=== PATIENT | male | born 1950 | race Two or more races ===

== ENCOUNTER → 2017-07-02 | Outpatient (CLI) | payer BC | END | disposition home or self-care (01) | LOC: US 07:06 | DX: K80.20 Calculus of gallbladder without cholecystitis without obstruction (principal); N28.1 Cyst of kidney, acquired; R16.1 Splenomegaly, not elsewhere classified | CPT/HCPCS: 76700 ==

== ENCOUNTER → 2017-07-25 | Day surgery (SDC) | payer BC ==
[~2017-07-25] MED LIST: LIDOCAINE 1% PF 2 ML VIAL. ID; LIDOCAINE 2% 100 MG/5 ML SYRINGE.; MORPHINE SULFATE 4 MG/ML DISP.SYRIN. IV; ONDANSETRON PF 4 MG/2 ML VIAL. IV; PROCHLORPERAZINE 10 MG/2 ML VIAL. IV; PROPOFOL 20 ML IV; fentaNYL PF VIAL 100 MCG/2 ML VIAL IV
[2017-07-25] MEDS: IV RINGERS,LACTATED 1000ML 1,000 ML IV (11:47)
[2017-07-25 11:58] LABS: POC GLUCOSE 160 mg/dL (70-99)
== END ==
LOC: ENDOS 11:19
DX: K29.00 Acute gastritis without bleeding (principal); K31.89 Other diseases of stomach and duodenum; E11.9 Type 2 diabetes mellitus without complications; I10 Essential (primary) hypertension; E78.5 Hyperlipidemia, unspecified; Z87.39 Personal history of other diseases of the musculoskeletal system and connective tissue; Z98.890 Other specified postprocedural states; Z87.891 Personal history of nicotine dependence; Z72.89 Other problems related to lifestyle
CPT/HCPCS: 43239; 82962; 88305; 88342; J2704

== ENCOUNTER → 2020-02-22 | Outpatient (CLI) | payer BC ==
[2017-07-25 12:32] VITALS: BP 158/83
[~2020-02-22] MED LIST changes: +AMLO2.5T5 PO; +ASPI-886 PO; +CLOP75TA PO; +FURO80TA3 PO; +GLIM4TAB8 PO; -LIDOCAINE 1% PF 2 ML VIAL. ID; -LIDOCAINE 2% 100 MG/5 ML SYRINGE.; +LISI-334 PO; +METF10007 PO; +METF500T16 PO; +METO50TA6 PO; -MORPHINE SULFATE 4 MG/ML DISP.SYRIN. IV; +OMEP20TA8 PO; -ONDANSETRON PF 4 MG/2 ML VIAL. IV; +POTASSIUM CHLO10 ME1 PO; -PROCHLORPERAZINE 10 MG/2 ML VIAL. IV; -PROPOFOL 20 ML IV; +SIMV40TA18 PO; +WARF-31 PO; -fentaNYL PF VIAL 100 MCG/2 ML VIAL IV
--- NOTE | 2020-02-22 15:49 | KCIC ---
EXAM: Renal sonogram. HISTORY: Microscopic hematuria. TECHNIQUE: Sonographic imaging the kidneys and bladder was performed. COMPARISON: None. FINDINGS: The kidneys are normal in size. No solid renal lesion is seen. There is a simple cyst within the left kidney measuring 4.4 cm. There is masslike deformation of the bladder base due to an enlarged prostate. This limits evaluation for a bladder neoplasm. The prevoid bladder volume is 719 cc. Postvoid imaging was not obtained. IMPRESSION: 1. Masslike deformation of the bladder base due to an enlarged prostate. This limits evaluation for a bladder mass. Given reported microcephaly hematuria, a CT urogram or cystoscopy may be indicated. The bladder is distended. 2. 4.4 cm simple left renal cyst. Electronically signed by: Tari Naranjo MD (02/22/2020 3:46 PM) [id number]
== END ==
LOC: KCIC US 15:17
PROVIDERS: ATTEND Family Medicine
DX: N28.1 Cyst of kidney, acquired (principal); N40.0 Benign prostatic hyperplasia without lower urinary tract symptoms; R31.21 Asymptomatic microscopic hematuria
CPT/HCPCS: 76770

== ENCOUNTER 2020-10-02 23:42 | Inpatient (IN) | payer BC ==
[~2020-10-02] VITALS: Ht 177.8 cm; Wt 106.8 kg
[~2020-10-02 23:42] MED LIST changes: -LISI-334 PO; +LISI20TA18 PO
[2020-10-02] MEDS ORDERED: LABETALOL 20 MG/4 ML DISP.SYRIN. IVP ONE (23:59)
[2020-10-03] VITALS (26 sets, daily range): BP systolic 122–178; BP diastolic 62–91
--- NOTE | 2020-10-03 00:03 | RAD ---
CT STROKE HEAD W/O History: Reason: stroke symptoms;RIGHT SIDED WEAKNESS / Spl. Instructions: / History: Comparison: None. Technique: Noncontrast CT imaging was performed of the head. Exposure: One or more of the following individualized dose reduction techniques were utilized for thi s examination: 1. Automated exposure control 2. Adjustment of the mA and/or kV according to patient size 3. Use of iterative reconstruction technique. Findings: Acute left thalamic hemorrhage measures 1.4 x 1.0 cm. Mild adjacent edema. No significant adjacent ma ss effect. No hydrocephalus. Mild brain parenchymal volume loss. Moderate foci of decreased attenuation within the hemispheric whi te matter, most often due to chronic microvascular ischemia. Intracranial atheromatous calcifications . Imaged orbits are unremarkable. Imaged paranasal sinuses and mastoid air cells are clear. No acute ca lvarial fracture. Impression: 1. Acute left thalamic hemorrhage with mild adjacent edema. FOR INTERNAL CODING PURPOSES Critical result: Findings discussed with ER physician taking care of the patient. at 10/02/2020 11:57 PM. RESULT CODE: (C) Electronically signed by: Anders Banks DO (10/03/2020 12:01 AM) [facility]
[2020-10-03] MEDS ORDERED: LABETALOL 20 MG/4 ML DISP.SYRIN. IVP ONE (00:30)
[2020-10-03] MEDS ORDERED: PHYTONADIONE (VIT K1) IV 10 MG in IV DEXTROSE 5% 50 ML IV ONE (02:00)
--- NOTE | 2020-10-03 02:06 | EKG ---
[address] [place] [address] Test Date: 2020-10-02 Test Time: 23:59:46 Pat Name: RAUL ESPINAL Department: Room: Gender: M Hand [employer]: : 1950 Requested By: RIZWAN ROSENBERG Order Number: [id number] Reading MD: Measurements Intervals [place] Rate: 63 P: AL: QRS: -56 QRSD: 122 T: 39 QT: 442 QTc: 456 Interpretive Statements IRREGULAR RHYTHM, NO P-WAVE FOUND ABNORMAL LEFT AXIS DEVIATION LEFT ANTERIOR FASCICULAR BLOCK LEFT VENTRICULAR HYPERTROPHY QRS(T) CONTOUR ABNORMALITY CONSIDER ANTEROSEPTAL MYOCARDIAL DAMAGE ABNORMAL ECG RI6.02 Compared to ECG 10/02/2020 23:58:22 Left-axis deviation now present Left anterior fascicular block now present Left ventricular hypertrophy now present
--- NOTE | 2020-10-03 02:29 | ED.ADGEN ---
Past Medical History Past Medical History: A-Fib, Diabetes-Type II, High Cholesterol, Hypertension Additional Past Medical Histor: STENTS IN HEART 2013 Past Surgical History: Appendectomy Additional Past Surgical Histo: STENTS IN HEART 2013 Smoking Status: Former Smoker Alcohol Use: Occasionally General Adult EDM: Chief Complaint: NEURO SYMPTOMS/DEFICITS HPI: HPI: Patient is a 70-year-old male with past medical history of hypertension, atrial fibrillation who presents to the emergency room as a code stroke. Patient states 40 minutes prior to arrival he was getting ready for bed when he suddenly realized he could not move his right arm. He shortly thereafter developed some slurred speech. He has no history of stroke. He denies any kind of pain. He is unable to ambulate at this time. Review of Systems: Review of Systems: Complete ROS is negative unless otherwise documented in HPI Current Medications: Current Medications Medications (Trade) Dose Ordered Sig/Sabino Start Time Stop Time Status Last Admin Dose Admin Labetalol HCl (Normodyne Iv Push) 20 mg STK-MED ONCE 10/02/20 23:59 10/03/20 00:00 DC Allergies: Allergies: Allergies Coded Allergies Type Severity Reaction Last Updated Verified propoxyphene Allergy Intermediate 07/25/17 Yes Physical Exam: PE: General: Awake, alert, NAD. Well Nourished, well hydrated. Cooperative HEENT: Atraumatic, EOMI, PERRL, airway patent, moist oral mucosa Neck: Supple, trachea midline Respiratory: CTA bilaterally, normal effort, no wheezing/crackles CV: RRR, no murmur, cap refill <2 GI: Soft, nondistended, nontender, no masses MSK: No obvious deformities Skin: Warm, dry, intact Neuro: A&O x3, slurred speech, 5/5 strength in left upper extremity and left lower distally and proximally, right-sided facial droop, 0/5 strength in right upper extremity, 3/5 strength in right lower extremity, decreased sensation right upper and lower extremity Psych: Normal affect, normal mood, not suicidal or homicidal Current Patient Data: Labs: Laboratory Tests Test 10/02/20 00:00 10/03/20 00:02 White Blood Count 4.6 x10^3/uL (4.0-11.0) Red Blood Count 4.41 x10^6/uL (4.30-5.70) Hemoglobin 12.3 g/dL (13.0-17.5) L Hematocrit 37.2 % (39.0-53.0) L Mean Corpuscular Volume 85 fL (79-100) Mean Corpuscular Hemoglobin 28 pg (25-35) Mean Corpuscular Hemoglobin Concent 33 g/dL (31-37) Red Cell Distribution Width 15.4 % (11.5-14.5) H Platelet Count 96 x10^3/uL (140-400) L Neutrophils (%) (Auto) 66 % (31-73) Lymphocytes (%) (Auto) 19 % (24-48) L Monocytes (%) (Auto) 11 % (0-9) H Eosinophils (%) (Auto) 3 % (0-3) Basophils (%) (Auto) 1 % (0-3) Neutrophils # (Auto) 3.0 x10^3/uL (1.8-7.7) Lymphocytes # (Auto) 0.9 x10^3/uL (1.0-4.8) L Monocytes # (Auto) 0.5 x10^3/uL (0.0-1.1) Eosinophils # (Auto) 0.1 x10^3/uL (0.0-0.7) Basophils # (Auto) 0.0 x10^3/uL (0.0-0.2) Prothrombin Time 25.1 SEC (11.7-14.0) H Prothrombin Time INR 2.3 (0.8-1.1) H Activated Partial Thromboplast Time 37 SEC (24-38) Sodium Level 143 mmol/L (136-145) Potassium Level 3.3 mmol/L (3.5-5.1) L Chloride Level 104 mmol/L (98-107) Carbon Dioxide Level 34 mmol/L (21-32) H Anion Gap 5 (6-14) L Blood Urea Nitrogen 19 mg/dL (8-26) Creatinine 1.1 mg/dL (0.7-1.3) Estimated GFR (Cockcroft-Gault) 65.8 Glucose Level 218 mg/dL (70-99) H Calcium Level 9.5 mg/dL (8.5-10.1) Troponin I Quantitative < 0.017 ng/mL (0.000-0.055) Glucose (Fingerstick) 219 mg/dL (70-99) H Laboratory Tests 10/02/20 00:00 Laboratory Tests 10/02/20 00:00 Vital Signs: Vital Signs Date Time Temp Pulse Resp B/P (MAP) Pulse Ox O2 Delivery O2 Flow Rate FiO2 10/03/20 00:23 68 18 188/88 (121) 99 Nasal Cannula 5.0 10/02/20 23:45 98.0 98.0 EKG: EKG: [] Heart Score: C/O Chest Pain: N/A Risk Factors: Risk Factors: DM, Current or recent (<one month) smoker, HTN, HLP, family history of CAD, obesity. Risk Scores: Score 0 - 3: 2.5% MACE over next 6 weeks - Discharge Home Score 4 - 6: 20.3% MACE over next 6 weeks - Admit for Clinical Observation Score 7 - 10: 72.7% MACE over next 6 weeks - Early Invasive Strategies Radiology/Procedures: Radiology/Procedures: [] Course & Med Decision Making: Course & Med Decision Making Pertinent Labs and Imaging studies reviewed. (See chart for details) Patient is a 70-year-old male with a history of hypertension and atrial fibrillation who presents the emergency room with neurologic complaints. On exam, patient has right-sided deficits. Patient's presentation is concerning f or acute stroke. Stroke protocol was set off and the patient was taken for a CT head. Glucose is normal at this time. Patient was evaluated by neurology. CBC, BMP, magnesium, troponin, EKG were ordered to evaluate for other causes of symptoms and risk factors for stroke. Patient's blood pressure is not controlled at this time. Patient is within the three-hour TPA window. Patient does have any contraindication to tPA. Patient has an acute intracranial hemorrhage likely due to a hemorrhagic stroke and hypertensive emergency. Dr. Watts was consulted. Patient will be placed on a blood pressure goal of SBP less than 150. He was given labetalol while waiting for the nicardipine [facility]. Patient symptoms did improve and his NIH score did lower after blood pressure improved. Initial NIH of 12. Repeat NIH of 8. Warfarin will be reversed with vitamin K. Patient will be admitted to the ICU and a neurology consult will be placed. Joyce Disclaimer: Joyce Disclaimer: This electronic medical record was generated, in whole or in part, using a voice recognition dictation system. Critical Care Time Critical Care: Authorized and Performed by: John Bronson MD Total critical care time: approximately 50 minutes Due to a high probability of clinically significant, life threatening deterioration, the patient required my highest level of preparedness to intervene emergently and I personally spent this critical care time directly and personally managing the patient. This critical care time included obtaining a history; examining the patient; pulse oximetry; ventilator management if necessary; ordering and review of studies; arranging urgent treatment with development of a management plan; evaluation of patient's response to treatment; frequent reassessment; discussion with patient/family; and, discussions with other providers. This critical care time was performed to assess and manage the high probability of imminent, life-threatening deterioration that could result in multi-organ failure. It was exclusive of separately billable procedures and treating other patients and teaching time. Please see MDM section and the rest of the note for further information on patient assessment and treatment. Departure Departure Impression: Primary Impression: Hemorrhagic stroke Additional Impressions: Hypertensive emergency Warfarin anticoagulation Disposition: ADMITTED INPATIENT Condition: STABLE Referrals: Pio SESAY MD (PCP) Problem Qualifiers JOHN BRONSON MD Oct 03, 2020 02:29
[2020-10-03] MEDS ORDERED: FINA5TAB4 PO (02:41)
[2020-10-03] MEDS ORDERED: TAMS0.4C97 PO (02:41)
[2020-10-03] MEDS ORDERED: POTA10TA6 PO (02:41)
[2020-10-03] MEDS ORDERED: MECL-75 PO (02:41)
[2020-10-03] MEDS ORDERED: FURO80TA3 PO (02:41)
[2020-10-03] MEDS ORDERED: CELE200C PO (02:41)
--- NOTE | 2020-10-03 07:41 | PDOC1 ---
History and Physical Date of Admission Date of Admission DATE: 10/03/20 TIME: 06:59 Identification/Chief Complaint Chief Complaint Hemorrhagic stroke Source Source: Chart review, Patient History of Present Illness History of Present Illness Patient is 70-year-old male with past history of hypertension, atrial fibrillation on warfarin, who presents to the ED as a code stroke. Symptoms reportedly began approximate 40 minutes prior to arrival in ED with difficulty moving his right upper extremity and slurred speech. He denies any prior history of stroke. CT head on admission showed acute left thalamic hemorrhage with mild adjacent edema. He was initiated on nicardipine infusion. He was admitted to the ICU with neurology and neurosurgery consult. Past Medical History Past Medical History DM2, CHF, atrial fibrillation, BPH, HTN, vertigo Past Surgical History Past Surgical History Cardiac stents Past Surgical History: Appendectomy Family History Family History: Hypertension Social History Smoke: Quit ALCOHOL: occassional Drugs: None Current Problem List Problem List Problems Medical Problems: (1) Hemorrhagic stroke Status: Acute (2) Hypertensive emergency Status: Acute (3) Warfarin anticoagulation Status: Acute Current Medications Current Medications Current Medications Labetalol HCl (Normodyne Iv Push) 20 mg 1X ONCE IVP Last administered on 10/03/20at 00:02; Start 10/03/20 at 00:30; Stop 10/03/20 at 00:31; Status DC Labetalol HCl (Normodyne Iv Push) 20 mg STK-MED ONCE IVP ; Start 10/02/20 at 23:59; Stop 10/03/20 at 00:00; Status DC Nicardipine HCl 50 mg/Sodium Chloride 250 ml @ 25 mls/hr CONT PRN IV SEE I/O RECORD Last administered on 10/03/20at 01:00; Start 10/03/20 at 00:45 Phytonadione 10 mg/Dextrose 51 ml @ 102 mls/hr 1X ONCE IV Last administered on 10/03/20at 02:17; Start 10/03/20 at 02:00; Stop 10/03/20 at 02:30; Status DC Active Scripts Active Reported Meclizine Hcl 25 Mg Tablet 1 Tab PO TID PRN Finasteride 5 Mg Tablet 1 Tab PO DAILY Flomax (Tamsulosin Hcl) 0.4 Mg Cap.er.24h 2 Cap PO DAILY Celebrex (Celecoxib) 200 Mg Capsule 1 Cap PO DAILY Furosemide 80 Mg Tablet 2 Tab PO DAILY Klor-Con 10 (Potassium Chloride) 10 Meq Tablet.er 2 Tab PO DAILY 30 Days Omeprazole 20 Mg Tablet.dr 20 Mg PO DAILY Metformin Hcl 1,000 Mg Tablet 1,000 Mg PO BIDWMEALS Glimepiride 4 Mg Tablet 1 Tab PO DAILY Amlodipine Besylate 2.5 Mg Tablet 2.5 Mg PO DAILY Lisinopril 20 Mg Tablet 20 Mg PO DAILY Warfarin Sodium 5 Mg Tablet 6 Mg PO DAILY Metoprolol Tartrate 50 Mg Tablet 50 Mg PO BID Simvastatin 40 Mg Tablet 40 Mg PO HS Allergies Allergies: Coded Allergies: propoxyphene (Verified Allergy, Intermediate, 07/25/17) ROS Review of System GENERAL: No history of weight change, weakness or fevers. SKIN: No bruising, hair changes or rashes. EYES: No blurred, double or loss of vision. NOSE AND THROAT: No history of nosebleeds, hoarseness or sore throat. HEART: Denies chest pain, denies palpitations. LUNGS: Denies cough, hemoptysis, wheezing or shortness of breath. GASTROINTESTINAL: Denies nausea, vomiting, abdominal pain. GENITOURINARY: Denies dysuria, frequency, urgency, hematuria. NEUROLOGIC: Right-sided weakness and numbness. Slurred speech. PSYCHIATRIC: Denies anxiety, denies depression. ENDOCRINE: No history of heat or cold intolerance, polyuria or polydipsia. EXTREMITIES: Denies muscle weakness, joint pain, pain on walking or stiffness. Physical Exam Physical Exam General: Alert, Oriented X3, Cooperative, No acute distress HEENT: PERRLA, EOMI Lungs: Clear to auscultation, Normal air movement Heart: RRR, no murmurs Cardiovascular: S1, S2 Abdomen: Normal bowel sounds, Soft, No tenderness Extremities: No clubbing, No cyanosis Skin: No rashes, No significant lesion Neuro: Slurred speech, right-sided facial droop, 2/5 strength in right upper extremity, 3/5 strength in right lower extremity. Decreased sensation right uppe r, lower extremity, and right face. Strength 5/5 in left upper extremity and left lower distally and proximally, Psych/Mental Status: Mental status NL, Mood NL Vitals Vitals Vital Signs Date Time Temp Pulse Resp B/P (MAP) Pulse Ox O2 Delivery O2 Flow Rate FiO2 10/03/20 06:00 56 22 155/75 (101) 100 Nasal Cannula 5.0 10/03/20 04:00 97.7 97.7 Labs Labs Laboratory Tests Test 10/02/20 00:00 10/02/20 23:58 10/03/20 00:02 White Blood Count 4.6 x10^3/uL (4.0-11.0) Red Blood Count 4.41 x10^6/uL (4.30-5.70) Hemoglobin 12.3 g/dL (13.0-17.5) Hematocrit 37.2 % (39.0-53.0) Mean Corpuscular Volume 85 fL (79-100) Mean Corpuscular Hemoglobin 28 pg (25-35) Mean Corpuscular Hemoglobin Concent 33 g/dL (31-37) Red Cell Distribution Width 15.4 % (11.5-14.5) Platelet Count 96 x10^3/uL (140-400) Neutrophils (%) (Auto) 66 % (31-73) Lymphocytes (%) (Auto) 19 % (24-48) Monocytes (%) (Auto) 11 % (0-9) Eosinophils (%) (Auto) 3 % (0-3) Basophils (%) (Auto) 1 % (0-3) Neutrophils # (Auto) 3.0 x10^3/uL (1.8-7.7) Lymphocytes # (Auto) 0.9 x10^3/uL (1.0-4.8) Monocytes # (Auto) 0.5 x10^3/uL (0.0-1.1) Eosinophils # (Auto) 0.1 x10^3/uL (0.0-0.7) Basophils # (Auto) 0.0 x10^3/uL (0.0-0.2) Prothrombin Time 25.1 SEC (11.7-14.0) Prothromb Time International Ratio 2.3 (0.8-1.1) Activated Partial Thromboplast Time 37 SEC (24-38) Sodium Level 143 mmol/L (136-145) Potassium Level 3.3 mmol/L (3.5-5.1) Chloride Level 104 mmol/L (98-107) Carbon Dioxide Level 34 mmol/L (21-32) Anion Gap 5 (6-14) Blood Urea Nitrogen 19 mg/dL (8-26) Creatinine 1.1 mg/dL (0.7-1.3) Estimated GFR (Cockcroft-Gault) 65.8 Glucose Level 218 mg/dL (70-99) Calcium Level 9.5 mg/dL (8.5-10.1) Troponin I Quantitative < 0.017 ng/mL (0.000-0.055) SZ-Zno-E-Type Natriuretic Peptide 1442 pg/mL (0-124) Glucose (Fingerstick) 219 mg/dL (70-99) Laboratory Tests Test 10/02/20 23:58 10/03/20 00:02 SS-Kku-T-Type Natriuretic Peptide 1442 pg/mL (0-124) Glucose (Fingerstick) 219 mg/dL (70-99) Images Images CT CODE STROKE HEAD WO CT STROKE HEAD W/O History: Reason: stroke symptoms;RIGHT SIDED WEAKNESS / Spl. Instructions: / History: Comparison: None. Technique: Noncontrast CT imaging was performed of the head. Exposure: One or more of the following individualized dose reduction techniques were utilized for this examination: 1. Automated exposure control 2. Adjustment of the mA and/or kV according to patient size 3. Use of iterative reconstruction technique. Findings: Acute left thalamic hemorrhage measures 1.4 x 1.0 cm. Mild adjacent edema. No significant adjacent mass effect. No hydrocephalus. Mild brain parenchymal volume loss. Moderate foci of decreased attenuation within the hemispheric white matter, most often due to chronic microvascular ischemia. Intracranial atheromatous calcifications. Imaged orbits are unremarkable. Imaged paranasal sinuses and mastoid air cells are clear. No acute calvarial fracture. Impression: 1. Acute left thalamic hemorrhage with mild adjacent edema. VTE Prophylaxis Ordered VTE Prophylaxis Devices: Yes VTE Pharmacological Prophylaxi: No Assessment/Plan Assessment/Plan Hemorrhagic CVA Normocytic anemia History atrial fibrillation History of CHF Plan: Patient is admitted to ICU on IV nicardipine infusion Vitamin K provided in the ER for warfarin reversal Consultation placed to neurosurgery and neurology Per neurosurgery, SBP goal less than 150 mmHg Consultation placed to neurosurgery and neurology Will place consult to cardiology for management of atrial fibrillation and CHF. Echocardiogram from 08/31/2013 showed normal left ventricular systolic function with ejection fraction 55 - 60%, calcified aortic valve, PAP 52 mmHg. Limited echocardiogram pending Basal/prandial insulin Resume home medications FEN - NPO for now, then diabetic diet. PPX - SCDs FULL CODE Dispo - inpatient for above Advance Care Planning: Total time spent [id number] with patient 16 minutes in discussion with goals of care, comfort care, end-of-life care, pain management, code status; patient names his (Nisreen Cooley) as surrogate decision- maker. Total critical care time spent 30 minutes reviewing charts, imaging, reviewing labs, managing IV nicardipine infusion, and discussion with RN. Justifications for Admission Other Justification ANN ORNELAS MD Oct 03, 2020 07:41
[2020-10-03] MEDS ORDERED: DEXTROSE 50% 25 GM / 50ML DISP.SYRIN. IV PRN (08:15)
[2020-10-03] MEDS ORDERED: ACETAMINOPHEN 650 MG SUPP.RECT. PR PRN ×2 (08:15)
[2020-10-03] MEDS ORDERED: 0.9 % SODIUM CHLORIDE 10 ML DISP.SYRIN. IV PRN (08:15)
[2020-10-03] MEDS ORDERED: PHARMACY TO REVIEW MEDS. MC PRN ×2 (08:15)
[2020-10-03] MEDS ORDERED: MORPHINE SULFATE 2 MG/ML VIAL. IV PRN (08:15)
[2020-10-03] MEDS ORDERED: CALCIUM CARBONATE 500 MG TAB.CHEW PO PRN (08:15)
[2020-10-03] MEDS ORDERED: IV DEXTROSE 5% 250 ML BAG. IV PRN (08:15)
[2020-10-03] MEDS ORDERED: ONDANSETRON PF 4 MG/2 ML VIAL. IVP PRN (08:15)
[2020-10-03] MEDS ORDERED: MAG HYDROX/ALUMINUM HYD/SIMETH 30 ML ORAL.SUSP PO PRN (08:15)
[2020-10-03] MEDS ORDERED: MAGNESIUM HYDROXIDE 2,400 MG/30 ML ORAL.SUSP. PO PRN (08:15)
[2020-10-03] MEDS: INSULIN LISPRO 300 UNITS/3 ML VIAL. SQ SCH ×3 (09:00→17:31)
[2020-10-03] MEDS ORDERED: CONTRAST GIVEN. MC PRN (09:30)
[2020-10-03] MEDS ORDERED: IOHEXOL 350 MG/ML 100 ML VIAL. IV ONE (09:30)
--- NOTE | 2020-10-03 09:44 | PDOC2 ---
KATE HANSON WARP TESTER 10/03/20 0944: CARDIAC CONSULT DATE OF CONSULT Date of Consult DATE: 10/03/20 TIME: 921 REASON FOR CONSULT Reason for Consult: stroke afib warfarin REFERRING PHYSICIAN Referring Physician: Audie SOURCE Source: Chart review, Patient HISTORY OF PRESENT ILLNESS HISTORY OF PRESENT ILLNESS This is a pleasant 70 yo male admited for complains of stroke symptoms. He has been having intermittent vertigo in the last 2 weeks. Last night at around 11 PM he was going up the stairs hen down and started having numbness to his right arm and leg then could not speak. He then went to the chair and after that he could not get up. Denies any visual or auditory disturbances. He has nver had a stroke before but + for CAD and years of AFIB. He has not seen a dry cleaner helper in a while and basically being managed by his PCP. Upon further test he was noted with thalammic hemorrhage. He is pleasant and able to talk currently but appears that his right side is weak. He also has hx of bells palsy. No chest pain, SOA, PND. No palpitations no n/v and no falls or injury. PAST MEDICAL HISTORY Cardiovascular: AFIB, CAD, CHF, HTN, Hyperlipidemia, Other (murmur; varicose veins; long QT ) Pulmonary: Other (WENDY use O2 at noc) CENTRAL NERVOUS SYSTEM: Vertigo (menieres), Other (bells palsy) GI: GERD Renal/: Benign prostatic enlarg. Endocrine: Diabetes (2) PAST SURGICAL HISTORY Past Surgical History: Appendectomy, Tonsillectomy, Other (PCI 2013) FAMILY HISTORY Family History noncontributory SOCIAL HISTORY Smoke: Quit ALCOHOL: none Drugs: None Lives: with Family CURRENT MEDICATIONS CURRENT MEDICATIONS Current Medications Medications (Trade) Dose Ordered Sig/Sabino Route PRN Reason Start Time Stop Time Status Last Admin Dose Admin Labetalol HCl (Normodyne Iv Push) 20 mg 1X ONCE IVP 10/03/20 00:30 10/03/20 00:31 DC 10/03/20 00:02 Nicardipine HCl 50 mg/Sodium Chloride 250 ml @ 25 mls/hr CONT PRN IV SEE I/O RECORD 10/03/20 00:45 10/03/20 01:00 Phytonadione 10 mg/Dextrose 51 ml @ 102 mls/hr 1X ONCE IV 10/03/20 02:00 10/03/20 02:30 DC 10/03/20 02:17 ALLERGIES ALLERGIES: Coded Allergies: propoxyphene (Verified Allergy, Intermediate, 07/25/17) ROS Review of System 14 point ROS evaluated with pertinent positives noted per HPI PHYSICAL EXAM General: Alert, Oriented X3, Cooperative, No acute distress HEENT: Atraumatic, Mucous membr. moist/pink Lungs: Clear to auscultation, Normal air movement Heart: Other (AFIB rate controlled. 4/6 systolic murmur to LLS border) Abdomen: Soft, No tenderness, Other (protuberant abd) Extremities: No cyanosis, Other (2+ bilateral LE pitting edema) Skin: No breakdown, No significant lesion, Other (varicose veins to LE) Neuro: Normal speech, Sensation intact Psych/Mental Status: Mental status NL, Mood NL MUSCULOSKELETAL: Osteoarthritic changes both hands VITALS/I&O VITALS/I&O: Vital Signs Date Time Temp Pulse Resp B/P (MAP) Pulse Ox O2 Delivery O2 Flow Rate FiO2 10/03/20 09:00 78 20 144/77 (99) 96 Nasal Cannula 5.0 10/03/20 08:00 97.9 97.9 I & O 10/02/20 10/02/20 10/03/20 14:59 22:59 06:59 Intake Total 51 ml Output Total 300 ml Balance -249 ml LABS Lab: Laboratory Tests Test 10/02/20 23:58 10/03/20 00:02 PA-Qla-G-Type Natriuretic Peptide 1442 pg/mL (0-124) H Glucose (Fingerstick) 219 mg/dL (70-99) H ECHOCARDIOGRAM ECHOCARDIOGRAM <Conclusion> Left ventricle systolic function is normal. The Ejection Fraction is 55-60%. The right ventricle is mildly dilated. The right ventricular systolic function is normal. The left atrium is moderately dilated. The right atrium is moderately dilated. The aortic valve is calcified but opens well. Doppler and Color Flow revealed trace mitral regurgitation. Doppler and Color Flow revealed moderate tricuspid regurgitation. There is moderate pulmonary hypertension. The PA pressure was estimated at 52 mmHg. The IVC is dilated and collapses <50% with inspiration. There is no evidence of significant pericardial effusion. DATE: 08/31/13 1650 ASSESSMENT/PLAN ASSESSMENT/PLAN 1. Acute left thalamic hemorrhagic stroke with mild adjacent edema 2. AFIB: appears to be chronic 3. Chronic anticoagulation therapy: INR was at 2.3 Vit K was given 4. CAD: past stents. clinically stable 5. HTN: controlled 6. HLP 7. DM2: per PCP 8. Intermittent episodes of slow afib: 40s presently controlled at 70s Recommendations 1. Continue cardene while NPO, awaiting swallow eval. Will reeval PO med needs once able to take PO. Monitor HR 2. No further coumadin. Moving forward ASA for ishcemic stroke prevention when clear with neurology 3. LAAO referral. 4. TTE 5. Supportive care,. NOMAN CÁRDENAS MD 10/04/20 0901: CARDIAC CONSULT ASSESSMENT/PLAN ASSESSMENT/PLAN Late entry for 10/03/20 Pt. seen and examined. Agree with above CO TEACHER note. Supportive care. KATE HANSON APRN Oct 03, 2020 09:44 NOMAN CÁRDENAS MD Oct 04, 2020 09:01
--- NOTE | 2020-10-03 11:05 | PDOC2 ---
NEUROLOGY CONSULT Date of Service DOS: DATE: 10/03/20 TIME: 11:01 History of Present Illness History of Present Illness The patient is a 70-year-old right-handed male with history of hypertension and on anticoagulation for atrial fibrillation who at about 7 PM last night was getting ready for bed when he suddenly realized he could not move the right arm. He felt funny all over. There was some dysarthria. He has a mild headache. There is no prior history of stroke, seizure, or head injury. Past Medical History Cardiovascular: AFIB, HTN, Hyperlipidemia Pulmonary: Other (Sleep apnea) GI: GERD Psych: Anxiety Endocrine: Diabetes Past Surgical History Past Surgical History: Appendectomy, Other (Coronary stents) Family History Family History: Cancer Social History Social History , no alcohol or tobacco, retired Current Medications Current Medications Current Medications Labetalol HCl (Normodyne Iv Push) 20 mg 1X ONCE IVP Last administered on 10/03/20at 00:02; Start 10/03/20 at 00:30; Stop 10/03/20 at 00:31; Status DC Labetalol HCl (Normodyne Iv Push) 20 mg STK-MED ONCE IVP ; Start 10/02/20 at 23:59; Stop 10/03/20 at 00:00; Status DC Nicardipine HCl 50 mg/Sodium Chloride 250 ml @ 25 mls/hr CONT PRN IV SEE I/O RECORD Last administered on 10/03/20at 01:00; Start 10/03/20 at 00:45 Phytonadione 10 mg/Dextrose 51 ml @ 102 mls/hr 1X ONCE IV Last administered on 10/03/20at 02:17; Start 10/03/20 at 02:00; Stop 10/03/20 at 02:30; Status DC Insulin Glargine (Lantus Syringe) 15 unit QHS SQ ; Start 10/03/20 at 21:00 Insulin Human Lispro (HumaLOG) 5 units TIDWMEALS SQ ; Start 10/03/20 at 09:00 Dextrose (Dextrose 50%-Water Syringe) 12.5 gm PRN Q15MIN PRN IV SEE COMMENTS; Start 10/03/20 at 08:15 Dextrose (Iv Dextrose 5%) 250 ml PRN Q15MIN PRN IV SEE COMMENTS; Start 10/03/20 at 08:15 Lorazepam (Ativan Inj) 0.5 mg PRN Q6HRS PRN IVP ANXIETY / AGITATION; Start 10/03/20 at 08:15 Lorazepam (Ativan) 1 mg PRN Q6HRS PRN PO ANXIETY / AGITATION; Start 10/03/20 at 08:15 Ondansetron HCl (Zofran) 4 mg PRN Q6HRS PRN IVP NAUSEA/VOMITING; Start 10/03/20 at 08:15 Al Hydroxide/Mg Hydroxide (Mylanta Plus Xs) 30 ml PRN Q3HRS PRN PO HEARTBURN / GAS; Start 10/03/20 at 08:15 Calcium Carbonate/ Glycine (Tums) 500 mg PRN Q3HRS PRN PO HEARTBURN / GAS; Start 10/03/20 at 08:15 Sodium Chloride (Normal Saline Flush) 3 ml QSHIFT PRN IV AFTER MEDS AND BLOOD DRAWS; Start 10/03/20 at 08:15 Morphine Sulfate (Morphine Sulfate) 2 mg PRN Q1HR PRN IV PAIN; Start 10/03/20 at 08:15 Magnesium Hydroxide (Milk Of Magnesia) 2,400 mg PRN Q12HR PRN PO CONSTIPATION; Start 10/03/20 at 08:15 Info (Review Meds) 1 ea PRN 1X PRN MC SEE COMMENTS; Start 10/03/20 at 08:15; Status UNV Acetaminophen (Tylenol Supp) 650 mg PRN Q6HRS PRN [place] FEVER > 100.5'F or 38'C; Start 10/03/20 at 08:15; Status UNV Nicardipine HCl 50 mg/Sodium Chloride 250 ml @ 25 mls/hr CONT PRN IV HYPERTENSION; Start 10/03/20 at 08:15; Status UNV Info (Review Meds) 1 ea PRN 1X PRN MC SEE COMMENTS; Start 10/03/20 at 08:15 Acetaminophen (Tylenol Supp) 650 mg PRN Q6HRS PRN [place] FEVER > 100.5'F or 38'C; Start 10/03/20 at 08:15 Nicardipine HCl 50 mg/Sodium Chloride 250 ml @ 25 mls/hr CONT PRN IV HYPERTENSION; Start 10/03/20 at 08:15; Status UNV Iohexol (Omnipaque 350 Mg/ml) 75 ml 1X ONCE IV ; Start 6/8/21 at 09:30; Stop 10/03/20 at 09:31; Status DC Info (CONTRAST GIVEN -- Rx MONITORING) 1 each PRN DAILY PRN MC SEE COMMENTS; Start 10/03/20 at 09:30; Stop 10/05/20 at 09:29 Active Scripts Active Reported Meclizine Hcl 25 Mg Tablet 1 Tab PO TID PRN Finasteride 5 Mg Tablet 1 Tab PO DAILY Flomax (Tamsulosin Hcl) 0.4 Mg Cap.er.24h 2 Cap PO DAILY Celebrex (Celecoxib) 200 Mg Capsule 1 Cap PO DAILY Furosemide 80 Mg Tablet 2 Tab PO DAILY Klor-Con 10 (Potassium Chloride) 10 Meq Tablet.er 2 Tab PO DAILY 30 Days Omeprazole 20 Mg Tablet.dr 20 Mg PO DAILY Metformin Hcl 1,000 Mg Tablet 1,000 Mg PO BIDWMEALS Glimepiride 4 Mg Tablet 1 Tab PO DAILY Amlodipine Besylate 2.5 Mg Tablet 2.5 Mg PO DAILY Lisinopril 20 Mg Tablet 20 Mg PO DAILY Warfarin Sodium 5 Mg Tablet 6 Mg PO DAILY Metoprolol Tartrate 50 Mg Tablet 50 Mg PO BID Simvastatin 40 Mg Tablet 40 Mg PO HS Allergies Allergies: Coded Allergies: propoxyphene (Verified Allergy, Intermediate, 07/25/17) ROS Review of System Negative for fever, chills, weight loss, shortness of breath, chest pain, indigestion, hematochezia, melena, and dysuria. Full 14-point review of systems is negative. Physical Exam Physical Examination General: Well-developed, well-nourished male in no acute distress HEENT: Normocephalic andatraumatic. Temporal arteriespulsatile and nontender. Neck: Supple without bruit, no meningismus Musculoskeletal: Stability:see neurologic. Gait exam:see neurologic. Tone:see neurologic.Strength:see neurologic. Neurological: Mental Status:intact, orientation, memory, attention span/concentration, language, fund of knowledge normal. Cranial Nerves:Pupils equal and reactive to light, extraocular movements areintact, visual baltazar are full to confrontation. Facial sensation is normal. There is no facial asymmetry. Vestibulo-ocular reflex is intact. Palate elevates and tongue protrudes in mi dline. All other cranial related problems are negative except as mentioned before.Reflexes:2+ and symmetric with flexor plantar responses. Motor:4/5 right hemiparesis, normal tone and bulk. Coordination:Finger-nose finger and [id number] testing are normal. Rapid alternating movements and fine finger movements are impaired on the right. Gait:Not tested. Sensory:Normal pinpr ick, vibration, light touch, proprioception. Vitals VITALS Vital Signs Date Time Temp Pulse Resp B/P (MAP) Pulse Ox O2 Delivery O2 Flow Rate FiO2 10/03/20 10:00 75 20 150/68 (95) 97 Nasal Cannula 5.0 10/03/20 08:00 97.9 97.9 Labs Labs Laboratory Tests Test 10/02/20 00:00 10/02/20 23:58 10/03/20 00:02 10/03/20 09:27 White Blood Count 4.6 x10^3/uL (4.0-11.0) Red Blood Count 4.41 x10^6/uL (4.30-5.70) Hemoglobin 12.3 g/dL (13.0-17.5) Hematocrit 37.2 % (39.0-53.0) Mean Corpuscular Volume 85 fL (79-100) Mean Corpuscular Hemoglobin 28 pg (25-35) Mean Corpuscular Hemoglobin Concent 33 g/dL (31-37) Red Cell Distribution Width 15.4 % (11.5-14.5) Platelet Count 96 x10^3/uL (140-400) Neutrophils (%) (Auto) 66 % (31-73) Lymphocytes (%) (Auto) 19 % (24-48) Monocytes (%) (Auto) 11 % (0-9) Eosinophils (%) (Auto) 3 % (0-3) Basophils (%) (Auto) 1 % (0-3) Neutrophils # (Auto) 3.0 x10^3/uL (1.8-7.7) Lymphocytes # (Auto) 0.9 x10^3/uL (1.0-4.8) Monocytes # (Auto) 0.5 x10^3/uL (0.0-1.1) Eosinophils # (Auto) 0.1 x10^3/uL (0.0-0.7) Basophils # (Auto) 0.0 x10^3/uL (0.0-0.2) Prothrombin Time 25.1 SEC (11.7-14.0) Prothromb Time International Ratio 2.3 (0.8-1.1) Activated Partial Thromboplast Time 37 SEC (24-38) Sodium Level 143 mmol/L (136-145) Potassium Level 3.3 mmol/L (3.5-5.1) Chloride Level 104 mmol/L (98-107) Carbon Dioxide Level 34 mmol/L (21-32) Anion Gap 5 (6-14) Blood Urea Nitrogen 19 mg/dL (8-26) Creatinine 1.1 mg/dL (0.7-1.3) Estimated GFR (Cockcroft-Gault) 65.8 Glucose Level 218 mg/dL (70-99) Calcium Level 9.5 mg/dL (8.5-10.1) Troponin I Quantitative < 0.017 ng/mL (0.000-0.055) XP-[id number]-Type Natriuretic Peptide 1442 pg/mL (0-124) Glucose (Fingerstick) 219 mg/dL (70-99) 178 mg/dL (70-99) Laboratory Tests Test 10/02/20 23:58 10/03/20 00:02 10/03/20 09:27 QM-Cko-[id number]-Type Natriuretic Peptide 1442 pg/mL (0-124) Glucose (Fingerstick) 219 mg/dL (70-99) 178 mg/dL (70-99) Images Images CT STROKE HEAD W/O History: Reason: stroke symptoms;RIGHT SIDED WEAKNESS / Spl. Instructions: / History: Comparison: None. Technique: Noncontrast CT imaging was performed of the head. Exposure: One or more of the following individualized dose reduction techniques were utilized for this examination: 1. Automated exposure control 2. Adjustment of the mA and/or kV according to patient size 3. Use of iterative reconstruction technique. Findings: Acute left thalamic hemorrhage measures 1.4 x 1.0 cm. Mild adjacent edema. No significant adjacent mass effect. No hydrocephalus. Mild brain parenchymal volume loss. Moderate foci of decreased attenuation within the hemispheric white matter, most often due to chronic microvascular ischemia. Intracranial atheromatous calcifications. Imaged orbits are unremarkable. Imaged paranasal sinuses and mastoid air cells are clear. No acute calvarial fracture. Impression: 1. Acute left thalamic hemorrhage with mild adjacent edema. Assessment/Plan Assessment/Plan Impression: Left thalamic hemorrhage, most likely related to the fact that he is on warfarin plus his hypertension. Rule out aneurysm. Recommendations: Hold warfarin He has received vitamin K Repeat INR pending MRI of the brain CT angiogram Rehabilitation modalities Blood pressure goal, less than 150/90 Thank you for letting me help with the patient's care. GENE MEADOWS MD Oct 03, 2020 11:05
[2020-10-03 11:23] LABS: HEMATOCRIT 33.3 % (39.0-53.0); HEMOGLOBIN 11.1 g/dL (13.0-17.5); RED BLOOD COUNT 3.95 x10^6/uL (4.30-5.70); RED CELL DISTRIBUTION WIDTH 15.4 % (11.5-14.5); WHITE BLOOD COUNT 4.6 x10^3/uL (4.0-11.0)
[2020-10-03 11:34] LABS: PROTHROMBIN TIME PATIENT 20.1 SEC (11.7-14.0)
[2020-10-03 12:14] LABS: ALBUMIN 3.6 g/dL (3.4-5.0); ALBUMIN/GLOBULIN RATIO 1.1 (1.0-1.7); CALCIUM 8.8 mg/dL (8.5-10.1); CREATININE 0.9 mg/dL (0.7-1.3); GFR 82.9; MAGNESIUM 1.6 mg/dL (1.8-2.4); POTASSIUM 3.4 mmol/L (3.5-5.1); TOTAL BILIRUBIN 1.4 mg/dL (0.2-1.0); TOTAL PROTEIN 6.8 g/dL (6.4-8.2)
--- NOTE | 2020-10-03 12:20 | RAD ---
EXAM: Brain MRI without contrast. HISTORY: Thalamic hemorrhage. TECHNIQUE: Multiplanar, multisequence magnetic resonance imaging of the brain was performed without c ontrast. COMPARISON: CT dated 10/02/2020. FINDINGS: There is a 1.4 cm acute intracranial hematoma centered within the left thalamus and extendi ng into the left cerebral peduncle. There is a rim of surrounding edema. There are additional foci of susceptibility effect within the left greater than right external capsules and putamen likely due to chronic microhemorrhage. There is no mass effect or midline shift. There is no hydrocephalus. There is nonspecific signal change within the cerebral white matter, likely due to chronic small vess el disease. There is age-appropriate cerebral volume loss. The orbits are unremarkable. There is mini mal mastoid fluid and minimal paranasal sinus because of thickening. There are normal flow voids with in the cerebral vessels. IMPRESSION: 1. 1.4 cm acute thalamic hematoma with extension to the cerebral peduncle and associated with surroun ding edema. The size of the hematoma is not significantly changed compared to the prior CT, allowing for differences in imaging modality. 2. Multifocal areas of susceptibility effect within the left greater the right external capsules and basal ganglia likely due to chronic microhemorrhage. There is no convincing hyperdensity in these loc ations on the prior CT or on the current MRI to suggest acute hemorrhage. 3. Bilateral cerebral white matter changes, likely due to chronic small vessel disease. Electronically signed by: Tari Naranjo MD (10/03/2020 12:17 PM) [id number]
--- NOTE | 2020-10-03 13:06 | NUR ---
Patient helped with Urinal. Patient states "it hurts when I pee". Denies bladder, back pain. Patient does have blood tinged urine at this time.
--- NOTE | 2020-10-03 13:32 | NUR ---
Bedside Swallow Evaluation completed. Please refer to full report in intervention section for additional information. Impressions: Mild-moderate oral dysphagia w/ R anterior loss of boluses and pocketing of solids on R. Pt would benefit from modified diet at this time. Education w/ pt and son provided. Recommendations: Dysphagia II diet w/ thin liquids. RN to provide cues and assist initially (for R side pocketing/cues for lingual sweep and alternating consistencies). ST f/u for dysphagia. Precautions posted, d/w RN.
--- NOTE | 2020-10-03 14:12 | RAD ---
STUDY: CT angiography of the head and neck INDICATION: Left thalamic hemorrhage COMPARISON: CT head 10/02/2020 TECHNIQUE: Axial CT imaging of the head and neck utilizing angiography protocol and performed after t he intravenous administration of 75 mL Omnipaque 350 contrast. Precontrast imaging through the head w as performed as well. Multiplanar reformats and 3D MIP acquisitions were obtained. Encountered areas of stenosis are measured per NASCET criteria. One or more of the following individualized dose reduction techniques were utilized for this examinat ion: 1. Automated exposure control 2. Adjustment of the mA and/or kV according to patient size 3. Use of iterative reconstruction technique. FINDINGS: CT HEAD: The left thalamic hemorrhage measuring approximately 1.4 x 0.8 cm is unchanged. CTA NECK: Evaluation of the neck is limited by suboptimal contrast bolus timing and streak artifact. Arch/Proximal Great Vessels: The arch is unremarkable. Great vessel origins are grossly patent. Carotid Bifurcation/Cervical ICA: Proximal left common carotid artery is obscured by streak artifact. Otherwise, common carotid arteries, internal carotid arteries, and external carotid arteries are pat ent. There are few scattered calcifications at the carotid bulbs and proximal right internal carotid artery without narrowing. Vertebral Arteries: Limited visualization of proximal vertebral arteries due to contrast bolus timing artifact however vertebral arteries are grossly patent and normal in caliber. CTA HEAD: Posterior Circulation: There are calcifications in the intradural vertebral arteries without narrowin g. Basilar, superior cerebellar and posterior cerebral arteries are patent. Anterior Circulation: There are calcifications in the cavernous internal carotid arteries without sig nificant narrowing. Middle cerebral arteries and anterior cerebral arteries are patent. No aneurysm, dissection, stenosis, or occlusion in the head or neck. Veins: The dural venous sinuses are patent. MISCELLANEOUS: There are mildly enlarged right paratracheal lymph nodes. Patchy groundglass opacities in the lung ap ices. Mild degenerative disc disease in the cervical spine. Prevertebral soft tissues normal. IMPRESSION: 1. Somewhat limited exam due to suboptimal contrast bolus timing and streak artifact. No acute arter ial abnormality in the neck. 2. No acute arterial abnormality in the head. 3. Unchanged left thalamic hemorrhage. 4. Patchy ground glass opacities in the lung apices. 5. Mildly enlarged right mediastinal lymph nodes nodes. Electronically signed by: Anne-Marie Gilmore MD (10/03/2020 2:09 PM) [id number]
[2020-10-03] MEDS ORDERED: IOHEXOL 350 MG/ML 100 ML VIAL. ONE (14:59)
[2020-10-03] MEDS ORDERED: PHYTONADIONE 10 MG/ML AMPUL. SQ ONE (15:00)
--- NOTE | 2020-10-03 15:58 | NUR ---
SS following for discharge planning. SS reviewed pt chart and discussed with pt RN. Pt is from home with spouse and is currently requiring oxygen at five liters nasal canula. Pt had Head CT and has Thalamic Hemorrhage. Vitamin K being given today. Pt having right sided deficits. PT/OT ordered and recommending acute rehabilitation. SS contacted pt's spouse, Immanuel [phone], and discussed discharge planning and inpatient rehabilitation. Pt's spouse reported that she needs to consult with her spouse prior to making a decision. Pt's spouse reported that she will visit with her spouse tomorrow and will discuss and they will make a decision together. Family is primarily Bulgarian speaking but does understand some Polish. SS will continue to follow for discharge planning.
[2020-10-03] MEDS: HYDROcodone/APAP 5/325MG 1 TAB TABLET PO PRN (17:30)
[2020-10-03] MEDS: INSULIN GLARGINE SYRINGE. SQ SCH (21:04)
[2020-10-04] VITALS (19 sets, daily range): BP systolic 132–201; BP diastolic 60–92
[2020-10-04 06:57] LABS: BASO % 1 % (0-3); EOS # 0.1 x10^3/uL (0.0-0.7); EOS % 2 % (0-3); HEMATOCRIT 35.8 % (39.0-53.0); HEMOGLOBIN 11.8 g/dL (13.0-17.5); LYMPH # 0.6 x10^3/uL (1.0-4.8); LYMPH % 10 % (24-48); MEAN CORPUSCULAR HEMOGLOBIN 28 pg (25-35); MEAN CORPUSCULAR HGB CONC 33 g/dL (31-37); MEAN CORPUSCULAR VOLUME 85 fL (79-100); MONO # 0.6 x10^3/uL (0.0-1.1); MONO % 10 % (0-9); NEUT # 4.5 x10^3/uL (1.8-7.7); NEUT % 77 % (31-73); PLATELET COUNT 106 x10^3/uL (140-400); RED BLOOD COUNT 4.21 x10^6/uL (4.30-5.70); RED CELL DISTRIBUTION WIDTH 15.7 % (11.5-14.5); WHITE BLOOD COUNT 5.9 x10^3/uL (4.0-11.0)
[2020-10-04 07:03] LABS: CREATININE 0.7 mg/dL (0.7-1.3); GFR 110.9; POTASSIUM 3.6 mmol/L (3.5-5.1)
[2020-10-04 07:45] LABS: PROTHROMBIN TIME PATIENT 16.5 SEC (11.7-14.0)
[2020-10-04] MEDS: INSULIN LISPRO 300 UNITS/3 ML VIAL. SQ SCH ×3 (08:00→17:08)
--- NOTE | 2020-10-04 08:17 | PDOC ---
KATE HANSON BEARING MAKER 10/04/20 0817: CARDIO Progress Notes Date and Time Date of Service 10/04/2020 Time of Evaluation 0800 Subjective Subjective: No Chest Pain, No shortness of breath, No Palpitations Vitals Vitals Vital Signs Date Time Temp Pulse Resp B/P (MAP) Pulse Ox O2 Delivery O2 Flow Rate FiO2 10/04/20 07:00 83 21 132/71 (91) 100 Nasal Cannula 3.0 10/04/20 04:00 98.2 98.2 Weight Weight [ ] Input and Output Intake and Output Intake and Output 10/04/20 07:00 Intake Total 779 ml Output Total 3625 ml Balance -2846 ml Intake Oral 240 ml IV Total 539 ml Output Urine Total 3625 ml Laboratory Labs Laboratory Tests Test 10/03/20 09:27 10/03/20 11:10 10/03/20 16:47 10/03/20 21:03 Glucose (Fingerstick) 178 mg/dL (70-99) 264 mg/dL (70-99) 150 mg/dL (70-99) White Blood Count 4.6 x10^3/uL (4.0-11.0) Red Blood Count 3.95 x10^6/uL (4.30-5.70) Hemoglobin 11.1 g/dL (13.0-17.5) Hematocrit 33.3 % (39.0-53.0) Mean Corpuscular Volume 84 fL (79-100) Mean Corpuscular Hemoglobin 28 pg (25-35) Mean Corpuscular Hemoglobin Concent 33 g/dL (31-37) Red Cell Distribution Width 15.4 % (11.5-14.5) Platelet Count 89 x10^3/uL (140-400) Prothrombin Time 20.1 SEC (11.7-14.0) Prothromb Time International Ratio 1.7 (0.8-1.1) Sodium Level 143 mmol/L (136-145) Potassium Level 3.4 mmol/L (3.5-5.1) Chloride Level 106 mmol/L (98-107) Carbon Dioxide Level 31 mmol/L (21-32) Anion Gap 6 (6-14) Blood Urea Nitrogen 14 mg/dL (8-26) Creatinine 0.9 mg/dL (0.7-1.3) Estimated GFR (Cockcroft-Gault) 82.9 BUN/Creatinine Ratio 16 (6-20) Glucose Level 181 mg/dL (70-99) Calcium Level 8.8 mg/dL (8.5-10.1) Magnesium Level 1.6 mg/dL (1.8-2.4) Total Bilirubin 1.4 mg/dL (0.2-1.0) Aspartate Amino Transf (AST/SGOT) 13 U/L (15-37) Alanine Aminotransferase (ALT/SGPT) 15 U/L (16-63) Alkaline Phosphatase 59 U/L (46-116) Total Protein 6.8 g/dL (6.4-8.2) Albumin 3.6 g/dL (3.4-5.0) Albumin/Globulin Ratio 1.1 (1.0-1.7) Test 10/04/20 06:15 White Blood Count 5.9 x10^3/uL (4.0-11.0) Red Blood Count 4.21 x10^6/uL (4.30-5.70) Hemoglobin 11.8 g/dL (13.0-17.5) Hematocrit 35.8 % (39.0-53.0) Mean Corpuscular Volume 85 fL (79-100) Mean Corpuscular Hemoglobin 28 pg (25-35) Mean Corpuscular Hemoglobin Concent 33 g/dL (31-37) Red Cell Distribution Width 15.7 % (11.5-14.5) Platelet Count 106 x10^3/uL (140-400) Neutrophils (%) (Auto) 77 % (31-73) Lymphocytes (%) (Auto) 10 % (24-48) Monocytes (%) (Auto) 10 % (0-9) Eosinophils (%) (Auto) 2 % (0-3) Basophils (%) (Auto) 1 % (0-3) Neutrophils # (Auto) 4.5 x10^3/uL (1.8-7.7) Lymphocytes # (Auto) 0.6 x10^3/uL (1.0-4.8) Monocytes # (Auto) 0.6 x10^3/uL (0.0-1.1) Eosinophils # (Auto) 0.1 x10^3/uL (0.0-0.7) Basophils # (Auto) 0.0 x10^3/uL (0.0-0.2) Prothrombin Time 16.5 SEC (11.7-14.0) Prothromb Time International Ratio 1.4 (0.8-1.1) Sodium Level 143 mmol/L (136-145) Potassium Level 3.6 mmol/L (3.5-5.1) Chloride Level 107 mmol/L (98-107) Carbon Dioxide Level 27 mmol/L (21-32) Anion Gap 9 (6-14) Blood Urea Nitrogen 10 mg/dL (8-26) Creatinine 0.7 mg/dL (0.7-1.3) Estimated GFR (Cockcroft-Gault) 110.9 Glucose Level 187 mg/dL (70-99) Calcium Level 9.0 mg/dL (8.5-10.1) Physical Exam HEENT: Neck Supple W Full Motion Chest: Symmetric LUNGS: Clear to Auscultation Heart: irregularly irregular (afib) Abdomen: Soft N/T Extremities: No Calf Tenderness Neurology: alert, oriented, follow commands Assessment Assessment 1. Acute left thalamic hemorrhagic stroke with mild adjacent edema 2. AFIB: appears to be chronic 3. Chronic anticoagulation therapy: INR down to 1.4 after vit K 4. CAD: past stents. clinically stable 5. HTN: controlled 6. HLP 7. DM2: per PCP 8. Intermittent episodes of slow afib: 40s presently controlled at 70s Recommendations 1. Titrate off cardene and start norvasc including metoprolol at lower dose. Monitor HR and note any tachy jhon features 2. No further coumadin. Moving forward ASA for ishcemic stroke prevention when clear with neurology 3. LAAO referral. 4. TTE 5. Supportive care,. Justicifation of Admission Dx: Justifications for Admission: Justification of Admission Dx: Yes NOMAN CÁRDENAS MD 10/04/20 [id number]: CARDIO Progress Notes Plan Plan Pt. seen and examined. Agree with above PUBLIC HEALTH NURSE note. Supportive care. KATE HANSON APRN Oct 04, 2020 08:17 NOMAN CÁRDENAS MD Oct 04, 2020 23:49
[2020-10-04] MEDS: METOPROLOL TART IMMED RELEASE 25 MG TABLET. PO SCH ×2 (08:28→21:02)
--- NOTE | 2020-10-04 08:53 | PDOC ---
PROGRESS NOTES Date of Service DATE: 10/04/20 TIME: 08:50 Assessment Problems Medical Problems: (1) Hemorrhagic stroke Status: Acute (2) Hypertensive emergency Status: Acute (3) Warfarin anticoagulation Status: Acute Left thalamic hemorrhage, most likely related to the fact that he is on warfarin plus his hypertension. CTA negative for aneurysm. Plan Hold warfarin I ordered an additional dose of vitamin K, INR is 1.4 today Rehabilitation modalities Blood pressure goal, less than 150/90 Awaiting lipid profile Cardiology will review and renew his home antihypertensives Okay to go to telemetry unit Subjective Denies headache Objective Vital Signs Date Time Temp Pulse Resp B/P (MAP) Pulse Ox O2 Delivery O2 Flow Rate FiO2 10/04/20 08:28 82 140/72 10/04/20 08:00 Nasal Cannula 3.0 10/04/20 08:00 97.9 17 99 97.9 Intake and Output 10/04/20 07:00 Intake Total 779 ml Output Total 3625 ml Balance -2846 ml Intake Oral 240 ml IV Total 539 ml Output Urine Total 3625 ml PHYSICAL EXAM Physical Exam: Alert. Oriented to time, place and person. PERRL. EOMI. CN: no focal findings. Muscle tone: normal. Muscle strength: 5-/5 right hemiparesis DTR: 2+ Plantar reflex: Flexor Gait: not examined in bed. Sensory exam: no abnormal findings. No cerebellar signs elicited. Review of Relevant I have reviewed the following items torito (where applicable) has been applied. Labs Laboratory Tests Test 10/02/20 23:58 10/03/20 00:02 10/03/20 09:27 10/03/20 11:10 [id number]-[id number]-Type Natriuretic Peptide 1442 pg/mL (0-124) Glucose (Fingerstick) 219 mg/dL (70-99) 178 mg/dL (70-99) White Blood Count 4.6 x10^3/uL (4.0-11.0) Red Blood Count 3.95 x10^6/uL (4.30-5.70) Hemoglobin 11.1 g/dL (13.0-17.5) Hematocrit 33.3 % (39.0-53.0) Mean Corpuscular Volume 84 fL (79-100) Mean Corpuscular Hemoglobin 28 pg (25-35) Mean Corpuscular Hemoglobin Concent 33 g/dL (31-37) Red Cell Distribution Width 15.4 % (11.5-14.5) Platelet Count 89 x10^3/uL (140-400) Prothrombin Time 20.1 SEC (11.7-14.0) Prothromb Time International Ratio 1.7 (0.8-1.1) Sodium Level 143 mmol/L (136-145) Potassium Level 3.4 mmol/L (3.5-5.1) Chloride Level 106 mmol/L (98-107) Carbon Dioxide Level 31 mmol/L (21-32) Anion Gap 6 (6-14) Blood Urea Nitrogen 14 mg/dL (8-26) Creatinine 0.9 mg/dL (0.7-1.3) Estimated GFR (Cockcroft-Gault) 82.9 BUN/Creatinine Ratio 16 (6-20) Glucose Level 181 mg/dL (70-99) Calcium Level 8.8 mg/dL (8.5-10.1) Magnesium Level 1.6 mg/dL (1.8-2.4) Total Bilirubin 1.4 mg/dL (0.2-1.0) Aspartate Amino Transf (AST/SGOT) 13 U/L (15-37) Alanine Aminotransferase (ALT/SGPT) 15 U/L (16-63) Alkaline Phosphatase 59 U/L (46-116) Total Protein 6.8 g/dL (6.4-8.2) Albumin 3.6 g/dL (3.4-5.0) Albumin/Globulin Ratio 1.1 (1.0-1.7) Test 10/03/20 16:47 10/03/20 21:03 10/04/20 06:15 Glucose (Fingerstick) 264 mg/dL (70-99) 150 mg/dL (70-99) White Blood Count 5.9 x10^3/uL (4.0-11.0) Red Blood Count 4.21 x10^6/uL (4.30-5.70) Hemoglobin 11.8 g/dL (13.0-17.5) Hematocrit 35.8 % (39.0-53.0) Mean Corpuscular Volume 85 fL (79-100) Mean Corpuscular Hemoglobin 28 pg (25-35) Mean Corpuscular Hemoglobin Concent 33 g/dL (31-37) Red Cell Distribution Width 15.7 % (11.5-14.5) Platelet Count 106 x10^3/uL (140-400) Neutrophils (%) (Auto) 77 % (31-73) Lymphocytes (%) (Auto) 10 % (24-48) Monocytes (%) (Auto) 10 % (0-9) Eosinophils (%) (Auto) 2 % (0-3) Basophils (%) (Auto) 1 % (0-3) Neutrophils # (Auto) 4.5 x10^3/uL (1.8-7.7) Lymphocytes # (Auto) 0.6 x10^3/uL (1.0-4.8) Monocytes # (Auto) 0.6 x10^3/uL (0.0-1.1) Eosinophils # (Auto) 0.1 x10^3/uL (0.0-0.7) Basophils # (Auto) 0.0 x10^3/uL (0.0-0.2) Prothrombin Time 16.5 SEC (11.7-14.0) Prothromb Time International Ratio 1.4 (0.8-1.1) Sodium Level 143 mmol/L (136-145) Potassium Level 3.6 mmol/L (3.5-5.1) Chloride Level 107 mmol/L (98-107) Carbon Dioxide Level 27 mmol/L (21-32) Anion Gap 9 (6-14) Blood Urea Nitrogen 10 mg/dL (8-26) Creatinine 0.7 mg/dL (0.7-1.3) Estimated GFR (Cockcroft-Gault) 110.9 Glucose Level 187 mg/dL (70-99) Calcium Level 9.0 mg/dL (8.5-10.1) Laboratory Tests Test 10/03/20 09:27 10/03/20 11:10 10/03/20 16:47 10/03/20 21:03 Glucose (Fingerstick) 178 mg/dL (70-99) 264 mg/dL (70-99) 150 mg/dL (70-99) White Blood Count 4.6 x10^3/uL (4.0-11.0) Red Blood Count 3.95 x10^6/uL (4.30-5.70) Hemoglobin 11.1 g/dL (13.0-17.5) Hematocrit 33.3 % (39.0-53.0) Mean Corpuscular Volume 84 fL (79-100) Mean Corpuscular Hemoglobin 28 pg (25-35) Mean Corpuscular Hemoglobin Concent 33 g/dL (31-37) Red Cell Distribution Width 15.4 % (11.5-14.5) Platelet Count 89 x10^3/uL (140-400) Prothrombin Time 20.1 SEC (11.7-14.0) Prothromb Time International Ratio 1.7 (0.8-1.1) Sodium Level 143 mmol/L (136-145) Potassium Level 3.4 mmol/L (3.5-5.1) Chloride Level 106 mmol/L (98-107) Carbon Dioxide Level 31 mmol/L (21-32) Anion Gap 6 (6-14) Blood Urea Nitrogen 14 mg/dL (8-26) Creatinine 0.9 mg/dL (0.7-1.3) Estimated GFR (Cockcroft-Gault) 82.9 BUN/Creatinine Ratio 16 (6-20) Glucose Level 181 mg/dL (70-99) Calcium Level 8.8 mg/dL (8.5-10.1) Magnesium Level 1.6 mg/dL (1.8-2.4) Total Bilirubin 1.4 mg/dL (0.2-1.0) Aspartate Amino Transf (AST/SGOT) 13 U/L (15-37) Alanine Aminotransferase (ALT/SGPT) 15 U/L (16-63) Alkaline Phosphatase 59 U/L (46-116) Total Protein 6.8 g/dL (6.4-8.2) Albumin 3.6 g/dL (3.4-5.0) Albumin/Globulin Ratio 1.1 (1.0-1.7) Test 10/04/20 06:15 White Blood Count 5.9 x10^3/uL (4.0-11.0) Red Blood Count 4.21 x10^6/uL (4.30-5.70) Hemoglobin 11.8 g/dL (13.0-17.5) Hematocrit 35.8 % (39.0-53.0) Mean Corpuscular Volume 85 fL (79-100) Mean Corpuscular Hemoglobin 28 pg (25-35) Mean Corpuscular Hemoglobin Concent 33 g/dL (31-37) Red Cell Distribution Width 15.7 % (11.5-14.5) Platelet Count 106 x10^3/uL (140-400) Neutrophils (%) (Auto) 77 % (31-73) Lymphocytes (%) (Auto) 10 % (24-48) Monocytes (%) (Auto) 10 % (0-9) Eosinophils (%) (Auto) 2 % (0-3) Basophils (%) (Auto) 1 % (0-3) Neutrophils # (Auto) 4.5 x10^3/uL (1.8-7.7) Lymphocytes # (Auto) 0.6 x10^3/uL (1.0-4.8) Monocytes # (Auto) 0.6 x10^3/uL (0.0-1.1) Eosinophils # (Auto) 0.1 x10^3/uL (0.0-0.7) Basophils # (Auto) 0.0 x10^3/uL (0.0-0.2) Prothrombin Time 16.5 SEC (11.7-14.0) Prothromb Time International Ratio 1.4 (0.8-1.1) Sodium Level 143 mmol/L (136-145) Potassium Level 3.6 mmol/L (3.5-5.1) Chloride Level 107 mmol/L (98-107) Carbon Dioxide Level 27 mmol/L (21-32) Anion Gap 9 (6-14) Blood Urea Nitrogen 10 mg/dL (8-26) Creatinine 0.7 mg/dL (0.7-1.3) Estimated GFR (Cockcroft-Gault) 110.9 Glucose Level 187 mg/dL (70-99) Calcium Level 9.0 mg/dL (8.5-10.1) Medications Current Medications Labetalol HCl (Normodyne Iv Push) 20 mg 1X ONCE IVP Last administered on 10/03/20at 00:02; Start 10/03/20 at 00:30; Stop 10/03/20 at 00:31; Status DC Labetalol HCl (Normodyne Iv Push) 20 mg STK-MED ONCE IVP ; Start 10/02/20 at 23:59; Stop 10/03/20 at 00:00; Status DC Nicardipine HCl 50 mg/Sodium Chloride 250 ml @ 25 mls/hr CONT PRN IV SEE I/O RECORD Last administered on 10/04/20at 03:00; Start 10/03/20 at 00:45 Phytonadione 10 mg/Dextrose 51 ml @ 102 mls/hr 1X ONCE IV Last administered on 10/03/20at 02:17; Start 10/03/20 at 02:00; Stop 10/03/20 at 02:30; Status DC Insulin Glargine (Lantus Syringe) 15 unit QHS SQ Last administered on 10/03/20at 21:04; Start 10/03/20 at 21:00 Insulin Human Lispro (HumaLOG) 5 units TIDWMEALS SQ Last administered on 10/03/20at 17:31; Start 10/03/20 at 09:00 Dextrose (Dextrose 50%-Water Syringe) 12.5 gm PRN Q15MIN PRN IV SEE COMMENTS; Start 10/03/20 at 08:15 Dextrose (Iv Dextrose 5%) 250 ml PRN Q15MIN PRN IV SEE COMMENTS; Start 10/03/20 at 08:15 Lorazepam (Ativan Inj) 0.5 mg PRN Q6HRS PRN IVP ANXIETY / AGITATION; Start 10/03/20 at 08:15 Lorazepam (Ativan) 1 mg PRN Q6HRS PRN PO ANXIETY / AGITATION; Start 10/03/20 at 08:15 Ondansetron HCl (Zofran) 4 mg PRN Q6HRS PRN IVP NAUSEA/VOMITING; Start 10/03/20 at 08:15 Al Hydroxide/Mg Hydroxide (Mylanta Plus Xs) 30 ml PRN Q3HRS PRN PO HEARTBURN / GAS; Start 10/03/20 at 08:15 Calcium Carbonate/ Glycine (Tums) 500 mg PRN Q3HRS PRN PO HEARTBURN / GAS; Start 10/03/20 at 08:15 Sodium Chloride (Normal Saline Flush) 3 ml QSHIFT PRN IV AFTER MEDS AND BLOOD DRAWS; Start 10/03/20 at 08:15 Morphine Sulfate (Morphine Sulfate) 2 mg PRN Q1HR PRN IV PAIN Last administered on 10/03/20at 15:41; Start 10/03/20 at 08:15 Magnesium Hydroxide (Milk Of Magnesia) 2,400 mg PRN Q12HR PRN PO CONSTIPATION; Start 10/03/20 at 08:15 Info (Review Meds) 1 ea PRN 1X PRN MC SEE COMMENTS; Start 10/03/20 at 08:15; Status UNV Acetaminophen (Tylenol Supp) 650 mg PRN Q6HRS PRN VA FEVER > 100.5'F or 38'C; Start 10/03/20 at 08:15; Status UNV Nicardipine HCl 50 mg/Sodium Chloride 250 ml @ 25 mls/hr CONT PRN IV HYPERTENSION; Start 10/03/20 at 08:15; Status UNV Info (Review Meds) 1 ea PRN 1X PRN MC SEE COMMENTS; Start 10/03/20 at 08:15 Acetaminophen (Tylenol Supp) 650 mg PRN Q6HRS PRN VA FEVER > 100.5'F or 38'C; Start 10/03/20 at 08:15 Nicardipine HCl 50 mg/Sodium Chloride 250 ml @ 25 mls/hr CONT PRN IV HYPERTENSION; Start 10/03/20 at 08:15; Status UNV Iohexol (Omnipaque 350 Mg/ml) 75 ml 1X ONCE IV Last administered on 10/03/20at 09:30; Start 10/03/20 at 09:30; Stop 10/03/20 at 09:31; Status DC Info (CONTRAST GIVEN -- Rx MONITORING) 1 each PRN DAILY PRN MC SEE COMMENTS; Start 10/03/20 at 09:30; Stop 10/05/20 at 09:29 Phytonadione (Vitamin K Ampule) 10 mg 1X ONCE SQ Last administered on 10/03/20at 15:42; Start 10/03/20 at 15:00; Stop 10/03/20 at 15:01; Status DC Iohexol (Omnipaque 350 Mg/ml) 100 ml STK-MED ONCE .ROUTE ; Start 10/03/20 at 14:59; Stop 10/03/20 at 14:59; Status DC Acetaminophen/ Hydrocodone Bitart (Lortab 5/325) 1 tab PRN Q6HRS PRN PO PAIN Last administered on 10/03/20at 17:30; Start 10/03/20 at 17:30 Amlodipine Besylate (Norvasc) 5 mg DAILY PO Last administered on 10/04/20at 08:27; Start 10/04/20 at 09:00 Metoprolol Tartrate (Lopressor) 25 mg BID PO Last administered on 10/04/20at 08:28; Start 10/04/20 at 09:00 Hydralazine HCl (Apresoline Inj) 10 mg PRN Q4HRS PRN IVP ELEVATED BP, SEE COMMENTS; Start 10/04/20 at 08:15 Active Scripts Active Reported Meclizine Hcl 25 Mg Tablet 1 Tab PO TID PRN Finasteride 5 Mg Tablet 1 Tab PO DAILY Flomax (Tamsulosin Hcl) 0.4 Mg Cap.er.24h 2 Cap PO DAILY Celebrex (Celecoxib) 200 Mg Capsule 1 Cap PO DAILY Furosemide 80 Mg Tablet 2 Tab PO DAILY Klor-Con 10 (Potassium Chloride) 10 Meq Tablet.er 2 Tab PO DAILY 30 Days Omeprazole 20 Mg Tablet.dr 20 Mg PO DAILY Metformin Hcl 1,000 Mg Tablet 1,000 Mg PO BIDWMEALS Glimepiride 4 Mg Tablet 1 Tab PO DAILY Lisinopril 20 Mg Tablet 20 Mg PO DAILY Warfarin Sodium 5 Mg Tablet 6 Mg PO DAILY Simvastatin 40 Mg Tablet 40 Mg PO HS Vitals/I & O Vital Sign - Last 24 Hours 10/03/20 10/03/20 10/03/20 10/03/20 09:00 10:00 11:00 12:00 Temp 97.6 97.6 Pulse 78 75 72 92 Resp 20 B/P (MAP) 144/77 (99) 150/68 (95) 147/76 (99) 160/79 (106) Pulse Ox 96 97 99 95 O2 Delivery Nasal Cannula Nasal Cannula Nasal Cannula Nasal Cannula O2 Flow Rate 5.0 5.0 5.0 5.0 10/03/20 10/03/20 10/03/20 10/03/20 12:00 13:00 14:00 15:00 Pulse 91 98 98 Resp 22 B/P (MAP) 154/81 (105) 153/78 (103) 157/87 (110) Pulse Ox 100 100 100 O2 Delivery Nasal Cannula Nasal Cannula Nasal Cannula Nasal Cannula O2 Flow Rate 5.0 5.0 5.0 5.0 10/03/20 10/03/20 10/03/20 10/03/20 15:41 16:00 16:00 16:11 Temp 97.9 97.9 Pulse 87 Resp 17 16 B/P (MAP) 153/87 (109) Pulse Ox 100 97 97 O2 Delivery Nasal Cannula Nasal Cannula Nasal Cannula Nasal Cannula O2 Flow Rate 5.0 3.0 5.0 3.0 10/03/20 10/03/20 10/03/20 10/03/20 17:00 17:30 18:00 18:00 Pulse 79 77 Resp 15 20 15 B/P (MAP) 144/77 (99) 163/79 (107) Pulse Ox 96 96 97 O2 Delivery Nasal Cannula Nasal Cannula Nasal Cannula Nasal Cannula O2 Flow Rate 3.0 3.0 3.0 3.0 10/03/20 10/03/20 10/03/20 10/03/20 19:00 20:00 20:00 21:00 Temp 98.0 98.0 Pulse 75 73 80 Resp 14 15 16 B/P (MAP) 151/75 (100) 142/73 (96) 136/70 (92) Pulse Ox 95 96 98 O2 Delivery Nasal Cannula Nasal Cannula Nasal Cannula Nasal Cannula O2 Flow Rate 3.0 3.0 3.0 3.0 10/03/20 10/03/20 10/03/20 10/04/20 22:00 23:00 23:15 00:00 Pulse 72 77 72 Resp 18 15 20 B/P (MAP) 134/67 (89) 122/62 (82) 140/71 (94) Pulse Ox 96 97 94 O2 Delivery Nasal Cannula Nasal Cannula Nasal Cannula Nasal Cannula O2 Flow Rate 3.0 3.0 3.0 3.0 10/04/20 10/04/20 10/04/20 10/04/20 00:00 01:00 02:00 03:00 Temp 97.9 97.9 Pulse 80 70 75 77 Resp 16 20 22 20 B/P (MAP) 147/70 (95) 144/74 (97) 140/72 (94) 148/60 (89) Pulse Ox 95 96 97 98 O2 Delivery Nasal Cannula Nasal Cannula Nasal Cannula Nasal Cannula O2 Flow Rate 3.0 3.0 3.0 3.0 10/04/20 10/04/20 10/04/20 10/04/20 04:00 04:00 05:00 06:00 Temp 98.2 98.2 Pulse 82 80 80 Resp 24 20 20 B/P (MAP) 149/69 (95) 140/71 (94) 140/71 (94) Pulse Ox 100 98 99 O2 Delivery Nasal Cannula Nasal Cannula Nasal Cannula Nasal Cannula O2 Flow Rate 3.0 3.0 3.0 3.0 10/04/20 10/04/20 10/04/20 10/04/20 07:00 08:00 08:00 08:27 Temp 97.9 97.9 Pulse 83 80 85 Resp 21 17 B/P (MAP) 132/71 (91) 140/72 (94) 140/72 Pulse Ox 100 99 O2 Delivery Nasal Cannula Nasal Cannula Nasal Cannula O2 Flow Rate 3.0 3.0 3.0 10/04/20 08:28 Pulse 82 B/P (MAP) 140/72 Intake and Output 10/03/20 10/03/20 10/04/20 15:00 23:00 07:00 Intake Total 240 ml 200 ml 339 ml Output Total 1600 ml 1175 ml 850 ml Balance -1360 ml -975 ml -511 ml Images Brain MRI without contrast. HISTORY: Thalamic hemorrhage. TECHNIQUE: Multiplanar, multisequence magnetic resonance imaging of the brain was performed without contrast. COMPARISON: CT dated 10/02/2020. FINDINGS: There is a 1.4 cm acute intracranial hematoma centered within the left thalamus and extending into the left cerebral peduncle. There is a rim of surrounding edema. There are additional foci of susceptibility effect within the left greater than right external capsules and putamen likely due to chronic microhemorrhage. There is no mass effect or midline shift. There is no hydrocephalus. There is nonspecific signal change within the cerebral white matter, likely due to chronic small vessel disease. There is age-appropriate cerebral volume loss. The orbits are unremarkable. There is minimal mastoid fluid and minimal paranasal sinus because of thickening. There are normal flow voids within the c erebral vessels. IMPRESSION: 1. 1.4 cm acute thalamic hematoma with extension to the cerebral peduncle and associated with surrounding edema. The size of the hematoma is not significantly changed compared to the prior CT, allowing for differences in imaging modality. 2. Multifocal areas of susceptibility effect within the left greater the right external capsules and basal ganglia likely due to chronic microhemorrhage. There is no convincing hyperdensity in these locations on the prior CT or on the current MRI to suggest acute hemorrhage. 3. Bilateral cerebral white matter changes, likely due to chronic small vessel disease. CT angiography of the head and neck INDICATION: Left thalamic hemorrhage COMPARISON: CT head 10/02/2020 TECHNIQUE: Axial CT imaging of the head and neck utilizing angiography protocol and performed after the intravenous administration of 75 mL Omnipaque 350 co ntrast. Precontrast imaging through the head was performed as well. Multiplanar reformats and 3D MIP acquisitions were obtained. Encountered areas of stenosis are measured per NASCET criteria. One or more of the following individualized dose reduction techniques were utilized for this examination: 1. Automated exposure control 2. Adjustment of the mA and/or kV according to patient size 3. Use of iterative reconstruction technique. FINDINGS: CT HEAD: The left thalamic hemorrhage measuring approximately 1.4 x 0.8 cm is unchanged. CTA NECK: Evaluation of the neck is limited by suboptimal contrast bolus timing and streak artifact. Arch/Proximal Great Vessels: The arch is unremarkable. Great vessel origins are grossly patent. Carotid Bifurcation/Cervical ICA: Proximal left common carotid artery is obscured by streak artifact. Otherwise, common carotid arteries, internal carotid arteries, and external carotid arteries are patent. There are few scattered calcifications at the carotid bulbs and proximal right internal carotid artery without narrowing. Vertebral Arteries: Limited visualization of proximal vertebral arteries due to contrast bolus timing artifact however vertebral arteries are grossly patent and normal in caliber. CTA HEAD: Posterior Circulation: There are calcifications in the intradural vertebral arteries without narrowing. Basilar, superior cerebellar and posterior cerebral arteries are patent. Anterior Circulation: There are calcifications in the cavernous internal carotid arteries without significant narrowing. Middle cerebral arteries and anterior cerebral arteries are patent. No aneurysm, dissection, stenosis, or occlusion in the head or neck. Veins: The dural venous sinuses are patent. MISCELLANEOUS: There are mildly enlarged right paratracheal lymph nodes. Patchy groundglass opacities in the lung apices. Mild degenerative disc disease in the cervical spi ne. Prevertebral soft tissues normal. IMPRESSION: 1. Somewhat limited exam due to suboptimal contrast bolus timing and streak artifact. No acute arterial abnormality in the neck. 2. No acute arterial abnormality in the head. 3. Unchanged left thalamic hemorrhage. 4. Patchy ground glass opacities in the lung apices. 5. Mildly enlarged right mediastinal lymph nodes nodes. Justicifation of Admission Dx: Justifications for Admission: Justification of Admission Dx: Yes GENE MEADOWS MD Oct 04, 2020 08:53
[2020-10-04 09:06] LABS: CHOLESTEROL/HDL RATIO 4.3
--- NOTE | 2020-10-04 11:40 | NUR ---
SS following up with discharge planning. SS reviewed pt chart and discussed with pt RN. Pt is currently requiring oxygen at three liters nasal canula. PT/OT recommended acute rehabilitation. Pt's spouse and granddaughter here this morning. Pt's granddaughter German speaking. SS discussed discharge planning and inpatient rehabilitation. Pt's granddaughter reported that they would be agreeable to rehabilitation but would want facility close to the hospital as they don't want to travel far from the [place] due to transportation issues. Options provided. Pt's family discussing with pt. SS will continue to follow for discharge planning. Addendum: 10/04/20 at 1254 by DORYS ASHRAF SS SS following up with discharge planning. Pt's family requesting that pt go to [facility], ; fax [phone]. SS phoned and faxed referral as requested.
--- NOTE | 2020-10-04 14:09 | PDOC ---
[employer] PROGRESS NOTE Date of Service DOS: DATE: 10/04/20 TIME: 14:01 Chief Complaint Chief Complaint Hemorrhagic CVA Normocytic anemia History atrial fibrillation History of CHF Plan: Patient is admitted to ICU on IV nicardipine infusion Vitamin K provided in the ER for warfarin reversal Consultation placed to neurosurgery and neurology Per neurosurgery, SBP goal less than 150 mmHg Consultation placed to neurosurgery and neurology Will place consult to cardiology for management of atrial fibrillation and CHF. Echocardiogram from 08/31/2013 showed normal left ventricular systolic function with ejection fraction 55 - 60%, calcified aortic valve, PAP 52 mmHg. Limited echocardiogram pending Basal/prandial insulin Resume home medications FEN - NPO for now, then diabetic diet. PPX - SCDs FULL CODE Dispo - inpatient for above Advance Care Planning: Total time spent [id number] with patient 16 minutes in discussion with goals of care, comfort care, end-of-life care, pain management, code status; patient names his (Nisreen Cooley) as surrogate decision-m kelsea. History of Present Illness History of Present Illness Patient is 70-year-old male with past history of hypertension, atrial fibrillation on warfarin, who presents to the ED as a code stroke. Symptoms reportedly began approximate 40 minutes prior to arrival in ED with difficulty moving his right upper extremity and slurred speech. He denies any prior history of stroke. CT head on admission showed acute left thalamic hemorrhage with mild adjacent edema. He was initiated on nicardipine infusion. He was admitted to the ICU with neurology and neurosurgery consult. 10/04/2020: Afebrile, patient denies any complaints today. MRI brain showed size of the hematoma is not significantly changed compared to the prior CT. CTA head neck showed no acute arterial abnormality in the neck. Per neurology, will continue to hold warfarin and additional dose of vitamin K was given today. Plan is to discharge to rehab once blood pressure is well controlled; lipid panel is pending at this time. Per cardiology, no further Coumadin recommended for history of A. fib, will treat instead with aspirin. Echocardiogram pending at this time. Patient okay to discharge to [facility] Vitals/I&O Vitals/I&O: Vital Signs Date Time Temp Pulse Resp B/P (MAP) Pulse Ox O2 Delivery O2 Flow Rate FiO2 10/04/20 12:00 98.1 81 24 154/78 (103) 100 Nasal Cannula 3.0 98.1 I & O 10/03/20 10/03/20 10/04/20 15:00 23:00 07:00 Intake Total 240 ml 200 ml 339 ml Output Total 1600 ml 1175 ml 850 ml Balance -1360 ml -975 ml -511 ml Physical Exam General: Alert, Oriented X3, Cooperative, No acute distress Heart: Other (AFIB rate controlled. 4/6 systolic murmur to LLS border) Lungs: Clear Abdomen: Soft, No tenderness, Other (protuberant abd) Extremities: No cyanosis, Other (2+ bilateral LE pitting edema) Skin: No breakdown, No significant lesion, Other (varicose veins to LE) Labs Labs: Laboratory Tests Test 10/03/20 16:47 10/03/20 21:03 10/04/20 06:15 10/04/20 12:09 Glucose (Fingerstick) 264 mg/dL (70-99) 150 mg/dL (70-99) 205 mg/dL (70-99) White Blood Count 5.9 x10^3/uL (4.0-11.0) Red Blood Count 4.21 x10^6/uL (4.30-5.70) Hemoglobin 11.8 g/dL (13.0-17.5) Hematocrit 35.8 % (39.0-53.0) Mean Corpuscular Volume 85 fL (79-100) Mean Corpuscular Hemoglobin 28 pg (25-35) Mean Corpuscular Hemoglobin Concent 33 g/dL (31-37) Red Cell Distribution Width 15.7 % (11.5-14.5) Platelet Count 106 x10^3/uL (140-400) Neutrophils (%) (Auto) 77 % (31-73) Lymphocytes (%) (Auto) 10 % (24-48) Monocytes (%) (Auto) 10 % (0-9) Eosinophils (%) (Auto) 2 % (0-3) Basophils (%) (Auto) 1 % (0-3) Neutrophils # (Auto) 4.5 x10^3/uL (1.8-7.7) Lymphocytes # (Auto) 0.6 x10^3/uL (1.0-4.8) Monocytes # (Auto) 0.6 x10^3/uL (0.0-1.1) Eosinophils # (Auto) 0.1 x10^3/uL (0.0-0.7) Basophils # (Auto) 0.0 x10^3/uL (0.0-0.2) Prothrombin Time 16.5 SEC (11.7-14.0) Prothromb Time International Ratio 1.4 (0.8-1.1) Sodium Level 143 mmol/L (136-145) Potassium Level 3.6 mmol/L (3.5-5.1) Chloride Level 107 mmol/L (98-107) Carbon Dioxide Level 27 mmol/L (21-32) Anion Gap 9 (6-14) Blood Urea Nitrogen 10 mg/dL (8-26) Creatinine 0.7 mg/dL (0.7-1.3) Estimated GFR (Cockcroft-Gault) 110.9 Glucose Level 187 mg/dL (70-99) Calcium Level 9.0 mg/dL (8.5-10.1) Magnesium Level 1.9 mg/dL (1.8-2.4) Triglycerides Level 104 mg/dL (0-150) Cholesterol Level 121 mg/dL (0-200) LDL Cholesterol, Calculated 72 mg/dL (0-100) VLDL Cholesterol, Calculated 21 mg/dL (0-40) Non-HDL Cholesterol Calculated 93 mg/dL (0-129) HDL Cholesterol 28 mg/dL (40-60) Cholesterol/HDL Ratio 4.3 Assessment and Plan Assessmemt and Plan Problems Medical Problems: (1) Hemorrhagic stroke Status: Acute (2) Hypertensive emergency Status: Acute (3) Warfarin anticoagulation Status: Acute Comment Review of Relevant I have reviewed the following items torito (where applicable) has been applied. Medications: Current Medications Medications (Trade) Dose Ordered Sig/Sabino Route PRN Reason Start Time Stop Time Status Last Admin Dose Admin Insulin Glargine (Lantus Syringe) 15 unit QHS SQ 10/03/20 21:00 10/03/20 21:04 Phytonadione (Vitamin K Ampule) 10 mg 1X ONCE SQ 10/03/20 15:00 10/03/20 15:01 DC 10/03/20 15:42 Acetaminophen/ Hydrocodone Bitart (Lortab 5/325) 1 tab PRN Q6HRS PRN PO PAIN 10/03/20 17:30 10/03/20 17:30 Amlodipine Besylate (Norvasc) 5 mg DAILY PO 10/04/20 09:00 10/04/20 08:27 Metoprolol Tartrate (Lopressor) 25 mg BID PO 10/04/20 09:00 10/04/20 08:28 Justifications for Admission Other Justification ANN ORNELAS MD Oct 04, 2020 14:09
[2020-10-04] MEDS: hydrALAZINE 20 MG/ML VIAL. IVP PRN (14:30)
--- NOTE | 2020-10-04 16:15 | CARD ---
MR#: [id number] Date of Study: 10/04/2020 Ordering Physician: KATE HANSON, Referring Physician: KATE HANSON, Tech: Brittni Lerma, [facility] APPROVED REPORT EXAM: Two-dimensional and M-mode echocardiogram with Doppler and color Doppler. Other Information Quality : AverageHR: 70bpm INDICATION CVA/TIA Atrial Fibrillation RISK FACTORS Hypertension 2D DIMENSIONS RVDd4.1 (2.9-3.5cm)Left Atrium(2D)5.1 (1.6-4.0cm) IVSd1.2 (0.7-1.1cm)Aortic Root(2D)3.2 (2.0-3.7cm) LVDd5.6 (3.9-5.9cm)LVOT Diameter2.1 (1.8-2.4cm) PWd1.2 (0.7-1.1cm)LVDs3.5 (2.5-4.0cm) FS (%) 38.6 %SV106.5 ml LVEF(%)60.3 (>50%) Aortic Valve AoV Peak Karel.200.6cm/sAoV VTI42.2cm AO Peak GR.16.1mmHgLVOT VTI 17.27cm AO Mean GR.11mmHg Mitral Valve MV E Qfwhcwyg774.5cm/sMV DECEL [id number] MV A Sqjnddnt56.3cm/sE/A Ratio4.4 TDI Lateral E' P. V11.26cm/sMedial E' P. V8.04cm/s E/Lateral E'9.5E/Medial E'13.4 Tricuspid Valve TR P. [id number]/sRAP [id number] TR Peak Gr.[id number] LEFT VENTRICLE The left ventricle is normal size. There is mild to moderate concentric left ventricular hypertrophy. The left ventricular systolic function is normal. The Ejection Fraction is 55%. There is normal LV s egmental wall motion. RIGHT VENTRICLE The right ventricle is mildly dilated. There is normal right ventricular wall thickness. The right ve ntricular systolic function is normal. ATRIA The left atrium is moderately dilated. The right atrium is mildly dilated. The interatrial septum is intact with no evidence for an atrial septal defect or patent foramen ovale as noted on 2-D or Dopple r imaging. AORTIC VALVE The aortic valve is calcified and displays decreased opening. Doppler and Color Flow revealed trace a ortic regurgitation. There is no significant aortic valvular stenosis. Calculated aortic valve area i s 1.38 cm2 with maximum pressure gradient of 17 mmHg and mean pressure gradient of 10 mmHg. MITRAL VALVE The mitral valve is normal in structure and function. There is no evidence of mitral valve prolapse. There is no mitral valve stenosis. Doppler and Color-flow revealed trace mitral regurgitation. TRICUSPID VALVE The tricuspid valve is normal in structure and function. Doppler and Color Flow revealed trace tricus pid regurgitation with an estimated PAP of 67 mmHg. There is no tricuspid valve stenosis. PULMONIC VALVE The pulmonic valve is not well visualized. Doppler and Color Flow revealed trace pulmonic valvular re gurgitation. GREAT VESSELS The aortic root is normal in size. The ascending aorta is normal in size. The IVC is dilated and emelyn apses <50% with inspiration. PERICARDIAL EFFUSION There is no evidence of significant pericardial effusion. Critical Notification Critical Value: No <Conclusion> The left ventricular systolic function is normal. The Ejection Fraction is 55%. There is normal LV segmental wall motion. The left atrium is moderately dilated. Trace mitral regurgitation. Trace tricuspid regurgitation with an estimated PAP of 67 mmHg. There is no evidence of significant pericardial effusion. Signed by : Joe Escobar, Electronically Approved : 10/04/2020 16:14:55
[2020-10-04] MEDS ORDERED: LISINOPRIL 10 MG TABLET PO ONE (17:00)
[2020-10-04] MEDS: INSULIN GLARGINE SYRINGE. SQ SCH (21:02)
[2020-10-04] MEDS: HYDROcodone/APAP 5/325MG 1 TAB TABLET PO PRN (22:42)
[2020-10-05] VITALS (13 sets, daily range): BP systolic 142–189; BP diastolic 68–84
[2020-10-05 07:21] LABS: HEMATOCRIT 34.5 % (39.0-53.0); HEMOGLOBIN 11.6 g/dL (13.0-17.5); RED BLOOD COUNT 4.06 x10^6/uL (4.30-5.70); RED CELL DISTRIBUTION WIDTH 15.6 % (11.5-14.5); WHITE BLOOD COUNT 6.6 x10^3/uL (4.0-11.0)
[2020-10-05 07:40] LABS: CALCIUM 8.8 mg/dL (8.5-10.1); CREATININE 0.9 mg/dL (0.7-1.3); GFR 82.9; POTASSIUM 3.7 mmol/L (3.5-5.1)
[2020-10-05] MEDS: METOPROLOL TART IMMED RELEASE 25 MG TABLET. PO SCH (08:16)
[2020-10-05] MEDS: INSULIN LISPRO 300 UNITS/3 ML VIAL. SQ SCH ×3 (08:17→17:33)
[2020-10-05] MEDS ORDERED: LISINOPRIL 10 MG TABLET PO SCH (09:00)
--- NOTE | 2020-10-05 10:48 | NUR ---
SS following up with discharge planning. SS reviewed pt chart and discussed with pt RN. Pt is currently requiring oxygen at three liters nasal canula. Pt on Cardine drip. PT/OT recommended acute rehabilitation. Pt's family requesting to go to [facility], ; fax [phone], due to transportation issues. Pt accepted at [facility], pending insurance authorization. COVID19 test pending for placement. SS will continue to follow for discharge planning.
--- NOTE | 2020-10-05 13:43 | PDOC ---
PROGRESS NOTES Date of Service DATE: 10/05/20 TIME: 13:41 Assessment Problems Medical Problems: (1) Hemorrhagic stroke Status: Acute (2) Hypertensive emergency Status: Acute (3) Warfarin anticoagulation Status: Acute Left thalamic hemorrhage, most likely related to the fact that he is on warfarin plus his hypertension. CTA negative for aneurysm. Plan Hold warfarin Rehabilitation modalities Blood pressure goal, less than 150/90 Favorable lipid profile, hold on statin Cardiology managing antihypertensives SNU rehab, transfer tomorrow Follow-up with me as needed Subjective Denies headache Objective Vital Signs Date Time Temp Pulse Resp B/P (MAP) Pulse Ox O2 Delivery O2 Flow Rate FiO2 10/05/20 11:27 97.6 71 20 156/79 (104) 96 Nasal Cannula 3.0 97.6 Intake and Output 10/05/20 07:00 Intake Total 1638 ml Output Total 2150 ml Balance -512 ml Intake Oral 880 ml IV Total 758 ml Output Urine Total 2150 ml PHYSICAL EXAM Alert. Oriented to time, place and person. PERRL. EOMI. CN: no focal findings. Muscle tone: normal. Muscle strength: 5-/5 right hemiparesis DTR: 2+ Plantar reflex: Flexor Gait: not examined in bed. Sensory exam: no abnormal findings. No cerebellar signs elicited. Review of Relevant I have reviewed the following items torito (where applicable) has been applied. Labs Laboratory Tests Test 10/03/20 16:47 10/03/20 21:03 10/04/20 06:15 10/04/20 12:09 Glucose (Fingerstick) 264 mg/dL (70-99) 150 mg/dL (70-99) 205 mg/dL (70-99) White Blood Count 5.9 x10^3/uL (4.0-11.0) Red Blood Count 4.21 x10^6/uL (4.30-5.70) Hemoglobin 11.8 g/dL (13.0-17.5) Hematocrit 35.8 % (39.0-53.0) Mean Corpuscular Volume 85 fL (79-100) Mean Corpuscular Hemoglobin 28 pg (25-35) Mean Corpuscular Hemoglobin Concent 33 g/dL (31-37) Red Cell Distribution Width 15.7 % (11.5-14.5) Platelet Count 106 x10^3/uL (140-400) Neutrophils (%) (Auto) 77 % (31-73) Lymphocytes (%) (Auto) 10 % (24-48) Monocytes (%) (Auto) 10 % (0-9) Eosinophils (%) (Auto) 2 % (0-3) Basophils (%) (Auto) 1 % (0-3) Neutrophils # (Auto) 4.5 x10^3/uL (1.8-7.7) Lymphocytes # (Auto) 0.6 x10^3/uL (1.0-4.8) Monocytes # (Auto) 0.6 x10^3/uL (0.0-1.1) Eosinophils # (Auto) 0.1 x10^3/uL (0.0-0.7) Basophils # (Auto) 0.0 x10^3/uL (0.0-0.2) Prothrombin Time 16.5 SEC (11.7-14.0) Prothromb Time International Ratio 1.4 (0.8-1.1) Sodium Level 143 mmol/L (136-145) Potassium Level 3.6 mmol/L (3.5-5.1) Chloride Level 107 mmol/L (98-107) Carbon Dioxide Level 27 mmol/L (21-32) Anion Gap 9 (6-14) Blood Urea Nitrogen 10 mg/dL (8-26) Creatinine 0.7 mg/dL (0.7-1.3) Estimated GFR (Cockcroft-Gault) 110.9 Glucose Level 187 mg/dL (70-99) Calcium Level 9.0 mg/dL (8.5-10.1) Magnesium Level 1.9 mg/dL (1.8-2.4) Triglycerides Level 104 mg/dL (0-150) Cholesterol Level 121 mg/dL (0-200) LDL Cholesterol, Calculated 72 mg/dL (0-100) VLDL Cholesterol, Calculated 21 mg/dL (0-40) Non-HDL Cholesterol Calculated 93 mg/dL (0-129) HDL Cholesterol 28 mg/dL (40-60) Cholesterol/HDL Ratio 4.3 Test 10/04/20 16:42 10/04/20 16:45 10/04/20 21:01 10/05/20 06:30 Glucose (Fingerstick) 192 mg/dL (70-99) 179 mg/dL (70-99) SARS-CoV-2 RNA (JAYDEN) Invalid (Negative) White Blood Count 6.6 x10^3/uL (4.0-11.0) Red Blood Count 4.06 x10^6/uL (4.30-5.70) Hemoglobin 11.6 g/dL (13.0-17.5) Hematocrit 34.5 % (39.0-53.0) Mean Corpuscular Volume 85 fL (79-100) Mean Corpuscular Hemoglobin 29 pg (25-35) Mean Corpuscular Hemoglobin Concent 34 g/dL (31-37) Red Cell Distribution Width 15.6 % (11.5-14.5) Platelet Count 107 x10^3/uL (140-400) Sodium Level 144 mmol/L (136-145) Potassium Level 3.7 mmol/L (3.5-5.1) Chloride Level 108 mmol/L (98-107) Carbon Dioxide Level 30 mmol/L (21-32) Anion Gap 6 (6-14) Blood Urea Nitrogen 13 mg/dL (8-26) Creatinine 0.9 mg/dL (0.7-1.3) Estimated GFR (Cockcroft-Gault) 82.9 Glucose Level 167 mg/dL (70-99) Calcium Level 8.8 mg/dL (8.5-10.1) Test 10/05/20 08:14 10/05/20 11:23 Glucose (Fingerstick) 168 mg/dL (70-99) 179 mg/dL (70-99) Laboratory Tests Test 10/04/20 16:42 10/04/20 16:45 10/04/20 21:01 10/05/20 06:30 Glucose (Fingerstick) 192 mg/dL (70-99) 179 mg/dL (70-99) SARS-CoV-2 RNA (JAYDEN) Invalid (Negative) White Blood Count 6.6 x10^3/uL (4.0-11.0) Red Blood Count 4.06 x10^6/uL (4.30-5.70) Hemoglobin 11.6 g/dL (13.0-17.5) Hematocrit 34.5 % (39.0-53.0) Mean Corpuscular Volume 85 fL (79-100) Mean Corpuscular Hemoglobin 29 pg (25-35) Mean Corpuscular Hemoglobin Concent 34 g/dL (31-37) Red Cell Distribution Width 15.6 % (11.5-14.5) Platelet Count 107 x10^3/uL (140-400) Sodium Level 144 mmol/L (136-145) Potassium Level 3.7 mmol/L (3.5-5.1) Chloride Level 108 mmol/L (98-107) Carbon Dioxide Level 30 mmol/L (21-32) Anion Gap 6 (6-14) Blood Urea Nitrogen 13 mg/dL (8-26) Creatinine 0.9 mg/dL (0.7-1.3) Estimated GFR (Cockcroft-Gault) 82.9 Glucose Level 167 mg/dL (70-99) Calcium Level 8.8 mg/dL (8.5-10.1) Test 10/05/20 08:14 10/05/20 11:23 Glucose (Fingerstick) 168 mg/dL (70-99) 179 mg/dL (70-99) Medications Current Medications Labetalol HCl (Normodyne Iv Push) 20 mg 1X ONCE IVP Last administered on 10/03/20at 00:02; Start 10/03/20 at 00:30; Stop 10/03/20 at 00:31; Status DC Labetalol HCl (Normodyne Iv Push) 20 mg STK-MED ONCE IVP ; Start 10/02/20 at 23:59; Stop 10/03/20 at 00:00; Status DC Nicardipine HCl 50 mg/Sodium Chloride 250 ml @ 25 mls/hr CONT PRN IV SEE I/O RECORD Last administered on 10/04/20at 23:34; Start 10/03/20 at 00:45 Phytonadione 10 mg/Dextrose 51 ml @ 102 mls/hr 1X ONCE IV Last administered on 10/03/20at 02:17; Start 10/03/20 at 02:00; Stop 10/03/20 at 02:30; Status DC Insulin Glargine (Lantus Syringe) 15 unit QHS SQ Last administered on 10/04/20at 21:02; Start 10/03/20 at 21:00 Insulin Human Lispro (HumaLOG) 5 units TIDWMEALS SQ Last administered on 10/05/20at 12:55; Start 10/03/20 at 09:00 Dextrose (Dextrose 50%-Water Syringe) 12.5 gm PRN Q15MIN PRN IV SEE COMMENTS; Start 10/03/20 at 08:15 Dextrose (Iv Dextrose 5%) 250 ml PRN Q15MIN PRN IV SEE COMMENTS; Start 10/03/20 at 08:15 Lorazepam (Ativan Inj) 0.5 mg PRN Q6HRS PRN IVP ANXIETY / AGITATION; Start 10/03/20 at 08:15 Lorazepam (Ativan) 1 mg PRN Q6HRS PRN PO ANXIETY / AGITATION; Start 10/03/20 at 08:15 Ondansetron HCl (Zofran) 4 mg PRN Q6HRS PRN IVP NAUSEA/VOMITING; Start 10/03/20 at 08:15 Al Hydroxide/Mg Hydroxide (Mylanta Plus Xs) 30 ml PRN Q3HRS PRN PO HEARTBURN / GAS; Start 10/03/20 at 08:15 Calcium Carbonate/ Glycine (Tums) 500 mg PRN Q3HRS PRN PO HEARTBURN / GAS; Start 10/03/20 at 08:15 Sodium Chloride (Normal Saline Flush) 3 ml QSHIFT PRN IV AFTER MEDS AND BLOOD DRAWS; Start 10/03/20 at 08:15 Morphine Sulfate (Morphine Sulfate) 2 mg PRN Q1HR PRN IV PAIN Last administered on 10/03/20at 15:41; Start 10/03/20 at 08:15 Magnesium Hydroxide (Milk Of Magnesia) 2,400 mg PRN Q12HR PRN PO CONSTIPATION; Start 10/03/20 at 08:15 Info (Review Meds) 1 ea PRN 1X PRN MC SEE COMMENTS; Start 10/03/20 at 08:15; Status UNV Acetaminophen (Tylenol Supp) 650 mg PRN Q6HRS PRN AL FEVER > 100.5'F or 38'C; Start 10/03/20 at 08:15; Status UNV Nicardipine HCl 50 mg/Sodium Chloride 250 ml @ 25 mls/hr CONT PRN IV HYPERTENSION; Start 10/03/20 at 08:15; Status UNV Info (Review Meds) 1 ea PRN 1X PRN MC SEE COMMENTS; Start 10/03/20 at 08:15 Acetaminophen (Tylenol Supp) 650 mg PRN Q6HRS PRN AL FEVER > 100.5'F or 38'C; Start 10/03/20 at 08:15 Nicardipine HCl 50 mg/Sodium Chloride 250 ml @ 25 mls/hr CONT PRN IV HYPERTENSION; Start 10/03/20 at 08:15; Status UNV Iohexol (Omnipaque 350 Mg/ml) 75 ml 1X ONCE IV Last administered on 10/03/20at 09:30; Start 10/03/20 at 09:30; Stop 10/03/20 at 09:31; Status DC Info (CONTRAST GIVEN -- Rx MONITORING) 1 each PRN DAILY PRN MC SEE COMMENTS; Start 10/03/20 at 09:30; Stop 10/05/20 at 09:29; Status DC Phytonadione (Vitamin K Ampule) 10 mg 1X ONCE SQ Last administered on 10/03/20at 15:42; Start 10/03/20 at 15:00; Stop 10/03/20 at 15:01; Status DC Iohexol (Omnipaque 350 Mg/ml) 100 ml STK-MED ONCE .ROUTE ; Start 10/03/20 at 14:59; Stop 10/03/20 at 14:59; Status DC Acetaminophen/ Hydrocodone Bitart (Lortab 5/325) 1 tab PRN Q6HRS PRN PO PAIN Last administered on 10/04/20at 22:42; Start 10/03/20 at 17:30 Amlodipine Besylate (Norvasc) 5 mg DAILY PO Last administered on 10/04/20at 0 8:27; Start 10/04/20 at 09:00; Stop 10/04/20 at 17:32; Status DC Metoprolol Tartrate (Lopressor) 25 mg BID PO Last administered on 10/05/20at 08:16; Start 10/04/20 at 09:00 Hydralazine HCl (Apresoline Inj) 10 mg PRN Q4HRS PRN IVP ELEVATED BP, SEE COMMENTS Last administered on 10/04/20at 14:30; Start 10/04/20 at 08:15 Lisinopril (Prinivil) 10 mg DAILY PO Last administered on 10/05/20at 08:15; Start 10/05/20 at 09:00 Lisinopril (Prinivil) 10 mg 1X ONCE PO Last administered on 10/04/20at 17:04; Start 10/04/20 at 17:00; Stop 10/04/20 at 17:01; Status DC Amlodipine Besylate (Norvasc) 5 mg 1X ONCE PO Last administered on 10/04/20at 17:04; Start 10/04/20 at 17:00; Stop 10/04/20 at 17:01; Status DC Amlodipine Besylate (Norvasc) 10 mg DAILY PO Last administered on 10/05/20at 08:15; Start 10/05/20 at 09:00 Docusate Sodium (Colace) 100 mg PRN DAILY PRN PO HARD STOOLS; Start 10/05/20 at 09:00 Active Scripts Active Reported Meclizine Hcl 25 Mg Tablet 1 Tab PO TID PRN Finasteride 5 Mg Tablet 1 Tab PO DAILY Flomax (Tamsulosin Hcl) 0.4 Mg Cap.er.24h 2 Cap PO DAILY Celebrex (Celecoxib) 200 Mg Capsule 1 Cap PO DAILY Furosemide 80 Mg Tablet 2 Tab PO DAILY Klor-Con 10 (Potassium Chloride) 10 Meq Tablet.er 2 Tab PO DAILY 30 Days Omeprazole 20 Mg Tablet.dr 20 Mg PO DAILY Metformin Hcl 1,000 Mg Tablet 1,000 Mg PO BIDWMEALS Glimepiride 4 Mg Tablet 1 Tab PO DAILY Lisinopril 20 Mg Tablet 20 Mg PO DAILY Warfarin Sodium 5 Mg Tablet 6 Mg PO DAILY Simvastatin 40 Mg Tablet 40 Mg PO HS Vitals/I & O Vital Sign - Last 24 Hours 10/04/20 10/04/20 10/04/20 10/04/20 14:30 16:57 17:04 17:04 Temp 97.8 97.8 Pulse 75 87 77 76 Resp 26 B/P (MAP) 165/86 170/82 (111) 173/78 173/78 Pulse Ox 98 O2 Delivery Nasal Cannula O2 Flow Rate 3.0 10/04/20 10/04/20 10/04/20 10/04/20 18:00 18:25 19:00 20:00 Pulse 88 84 Resp 24 29 B/P (MAP) 201/92 (128) 188/82 (117) 178/88 (118) 173/81 (111) Pulse Ox 98 99 O2 Delivery Nasal Cannula Nasal Cannula O2 Flow Rate 3.0 3.0 10/04/20 10/04/20 10/04/2021 20:00 21:00 21:02 22:00 Temp 98.1 98.1 Pulse 100 77 92 Resp B/P (MAP) 168/82 (110) 188/82 158/79 (105) Pulse Ox 98 99 O2 Delivery Nasal Cannula Nasal Cannula Nasal Cannula O2 Flow Rate 3.0 3.0 3.0 10/04/20 10/04/20 10/04/20 10/04/20 22:42 23:00 23:59 23:59 Pulse 77 86 Resp B/P (MAP) 168/68 (101) 146/68 (94) Pulse Ox 99 96 98 O2 Delivery Nasal Cannula Nasal Cannula Nasal Cannula Nasal Cannula O2 Flow Rate 3.0 3.0 3.0 3.0 10/05/20 10/05/20 10/05/20 10/05/20 01:00 01:13 02:00 03:00 Pulse 73 68 67 Resp B/P (MAP) 147/73 (97) 142/72 (95) 151/69 (96) Pulse Ox 95 95 95 95 O2 Delivery Nasal Cannula Nasal Cannula Nasal Cannula Nasal Cannula O2 Flow Rate 3.0 3.0 3.0 3.0 10/05/20 10/05/20 10/05/20 10/05/20 07:00 07:30 08:00 08:15 Pulse 90 78 95 Resp B/P (MAP) 189/83 (118) 156/70 (98) Pulse Ox 95 95 O2 Delivery Nasal Cannula Nasal Cannula Nasal Cannula O2 Flow Rate 3.0 3.0 3.0 10/05/20 10/05/20 10/05/20 10/05/20 08:15 08:16 08:30 09:00 Temp 98.6 98.6 Pulse 83 77 62 74 Resp 20 B/P (MAP) 175/84 (114) 159/79 (105) Pulse Ox 95 95 O2 Delivery Nasal Cannula Nasal Cannula O2 Flow Rate 3.0 3.0 10/05/20 10/05/20 09:30 11:27 Temp 97.6 97.6 Pulse 56 71 Resp 20 B/P (MAP) 157/75 (102) 156/79 (104) Pulse Ox 95 96 O2 Delivery Nasal Cannula Nasal Cannula O2 Flow Rate 3.0 3.0 Intake and Output 10/04/20 10/04/20 10/05/20 15:00 23:00 07:00 Intake Total 780 ml 100 ml 758 ml Output Total 650 ml 1000 ml 500 ml Balance 130 ml -900 ml 258 ml Images Echocardiogram: LEFT VENTRICLE The left ventricle is normal size. There is mild to moderate concentric left ventricular hypertrophy. The left ventricular systolic function is normal. The Ejection Fraction is 55%. There is normal LV segmental wall motion. RIGHT VENTRICLE The right ventricle is mildly dilated. There is normal right ventricular wall thickness. The right ventricular systolic function is normal. ATRIA The left atrium is moderately dilated. The right atrium is mildly dilated. The interatrial septum is intact with no evidence for an atrial septal defect or patent foramen ovale as noted on 2-D or Doppler imaging. AORTIC VALVE The aortic valve is calcified and displays decreased opening. Doppler and Color Flow revealed trace aortic regurgitation. There is no significant aortic valvular stenosis. Calculated aortic valve area is 1.38 cm2 with maximum pressure gradient of 17 mmHg and mean pressure gradient of 10 mmHg. MITRAL VALVE The mitral valve is normal in structure and function. There is no evidence of mitral valve prolapse. There is no mitral valve stenosis. Doppler and Color-flow revealed trace mitral regurgitation. TRICUSPID VALVE The tricuspid valve is normal in structure and function. Doppler and Color Flow revealed trace tricuspid regurgitation with an estimated PAP of 67 mmHg. There is no tricuspid valve stenosis. PULMONIC VALVE The pulmonic valve is not well visualized. Doppler and Color Flow revealed trace pulmonic valvular regurgitation. GREAT VESSELS The aortic root is normal in size. The ascending aorta is normal in size. The IVC is dilated and collapses <50% with inspiration. PERICARDIAL EFFUSION There is no evidence of significant pericardial effusion. Critical Notification Critical Value: No <Conclusion> The left ventricular systolic function is normal. The Ejection Fraction is 55%. There is normal LV segmental wall motion. The left atrium is moderately dilated. Trace mitral regurgitation. Trace tricuspid regurgitation with an estimated PAP of 67 mmHg. There is no evidence of significant pericardial effusion. Justicifation of Admission Dx: Justifications for Admission: Justification of Admission Dx: Yes GENE MEADOWS MD Oct 05, 2020 13:43
[2020-10-05] MEDS: hydrALAZINE 20 MG/ML VIAL. IVP PRN (14:10)
[2020-10-05] MEDS: HYDROcodone/APAP 5/325MG 1 TAB TABLET PO PRN ×2 (14:10→21:23)
[2020-10-05] MEDS: TAMSULOSIN 0.4 MG CAP.ER.24H. PO SCH (14:55)
[2020-10-05] MEDS: FINASTERIDE 5 MG TABLET. PO SCH (14:55)
--- NOTE | 2020-10-05 16:09 | PDOC ---
[facility] PROGRESS NOTE Date of Service DOS: DATE: 10/05/20 TIME: 16:10 Chief Complaint Chief Complaint Hemorrhagic CVA Normocytic anemia History atrial fibrillation History of CHF Plan: Patient is admitted to ICU on IV nicardipine infusion Vitamin K provided in the ER for warfarin reversal Consultation placed to neurosurgery and neurology Per neurosurgery, SBP goal less than 150 mmHg Consultation placed to neurosurgery and neurology Will place consult to cardiology for management of atrial fibrillation and CHF. Echocardiogram from 08/31/2013 showed normal left ventricular systolic function with ejection fraction 55 - 60%, calcified aortic valve, PAP 52 mmHg. Limited echocardiogram pending Basal/prandial insulin Resume home medications FEN - NPO for now, then diabetic diet. PPX - SCDs FULL CODE Dispo - inpatient for above Advance Care Planning: Total time spent [id number] with patient 16 minutes in discussion with goals of care, comfort care, end-of-life care, pain management, code status; patient names his (Nisreen Cooley) as surrogate decision- maker. History of Present Illness History of Present Illness Patient is 70-year-old male with past history of hypertension, atrial fibrillation on warfarin, who presents to the ED as a code stroke. Symptoms reportedly began approximate 40 minutes prior to arrival in ED with difficulty moving his right upper extremity and slurred speech. He denies any prior history of stroke. CT head on admission showed acute left thalamic hemorrhage with mild adjacent edema. He was initiated on nicardipine infusion. He was admitted to the ICU with neurology and neurosurgery consult. 10/04/2020: Afebrile, patient denies any complaints today. MRI brain showed size of the hematoma is not significantly changed compared to the prior CT. CTA head neck showed no acute arterial abnormality in the neck. Per neurology, will continue to hold warfarin and additional dose of vitamin K was given today. Plan is to discharge to rehab once blood pressure is well controlled; lipid panel is pending at this time. Per cardiology, no further Coumadin recommended for history of A. fib, will treat instead with aspirin. Echocardiogram pending at this time. Patient okay to discharge to [facility] 10/05/2020: No acute events overnight, afebrile. Blood pressure still not within goal range of <150/90. Will DC Lopressor and start Coreg 12.5 mg twice daily twice daily for better blood pressure control. States he wears 4 L O2 at night, currently on 3 L O2. He will need to discharge on aspirin 81 mg to rehab tomorrow. Discussed with RN. Vitals/I&O Vitals/I&O: Vital Signs Date Time Temp Pulse Resp B/P (MAP) Pulse Ox O2 Delivery O2 Flow Rate FiO2 10/05/20 15:02 144/70 (94) 10/05/20 14:53 97.9 77 18 97 Nasal Cannula 3.0 97.9 I & O 10/04/20 10/04/20 10/05/20 14:53 22:53 06:53 Intake Total 780 ml 100 ml 758 ml Output Total 650 ml 1000 ml 500 ml Balance 130 ml -900 ml 258 ml Physical Exam General: Alert, Oriented X3, Cooperative, No acute distress Heart: Other (AFIB rate controlled. 4/6 systolic murmur to LLS border) Lungs: Clear Abdomen: Soft, No tenderness, Other (protuberant abd) Extremities: No cyanosis, Other (2+ bilateral LE pitting edema) Skin: No breakdown, No significant lesion, Other (varicose veins to LE) Labs Labs: Laboratory Tests Test 10/04/20 16:42 10/04/20 16:45 10/04/20 21:01 10/05/20 06:30 Glucose (Fingerstick) 192 mg/dL (70-99) 179 mg/dL (70-99) SARS-CoV-2 RNA (JAYDEN) Invalid (Negative) White Blood Count 6.6 x10^3/uL (4.0-11.0) Red Blood Count 4.06 x10^6/uL (4.30-5.70) Hemoglobin 11.6 g/dL (13.0-17.5) Hematocrit 34.5 % (39.0-53.0) Mean Corpuscular Volume 85 fL (79-100) Mean Corpuscular Hemoglobin 29 pg (25-35) Mean Corpuscular Hemoglobin Concent 34 g/dL (31-37) Red Cell Distribution Width 15.6 % (11.5-14.5) Platelet Count 107 x10^3/uL (140-400) Sodium Level 144 mmol/L (136-145) Potassium Level 3.7 mmol/L (3.5-5.1) Chloride Level 108 mmol/L (98-107) Carbon Dioxide Level 30 mmol/L (21-32) Anion Gap 6 (6-14) Blood Urea Nitrogen 13 mg/dL (8-26) Creatinine 0.9 mg/dL (0.7-1.3) Estimated GFR (Cockcroft-Gault) 82.9 Glucose Level 167 mg/dL (70-99) Calcium Level 8.8 mg/dL (8.5-10.1) Test 10/05/20 08:14 10/05/20 11:23 Glucose (Fingerstick) 168 mg/dL (70-99) 179 mg/dL (70-99) Assessment and Plan Assessmemt and Plan Problems Medical Problems: (1) Hemorrhagic stroke Status: Acute (2) Hypertensive emergency Status: Acute (3) Warfarin anticoagulation Status: Acute Comment Review of Relevant I have reviewed the following items torito (where applicable) has been applied. Medications: Current Medications Medications (Trade) Dose Ordered Sig/Sabino Route PRN Reason Start Time Stop Time Status Last Admin Dose Admin Lisinopril (Prinivil) 10 mg DAILY PO 10/05/20 09:00 10/05/20 15:44 DC 10/05/20 08:15 Lisinopril (Prinivil) 10 mg 1X ONCE PO 10/04/20 17:00 10/04/20 17:01 DC 10/04/20 17:04 Amlodipine Besylate (Norvasc) 5 mg 1X ONCE PO 10/04/20 17:00 10/04/20 17:01 DC 10/04/20 17:04 Amlodipine Besylate (Norvasc) 10 mg DAILY PO 10/05/20 09:00 10/05/20 08:15 Finasteride (Proscar) 5 mg DAILY PO 10/05/20 15:30 10/05/20 14:55 Tamsulosin HCl (Flomax) 0.8 mg DAILY PO 10/05/20 15:30 10/05/20 14:55 Justifications for Admission Other Justification ANN ORNELAS MD Oct 05, 2020 16:09
[2020-10-05] MEDS: CARVEDILOL 12.5 MG TABLET. PO SCH (17:28)
[2020-10-05] MEDS: ASPIRIN CHEWABLE 81 MG TABLET. PO SCH (17:28)
[2020-10-05] MEDS: SIMVASTATIN 40 MG TABLET. PO SCH (21:16)
[2020-10-05] MEDS: INSULIN GLARGINE SYRINGE. SQ SCH (21:21)
[2020-10-06] VITALS (7 sets, daily range): BP systolic 119–164; BP diastolic 56–88
[2020-10-06 05:47] LABS: HEMATOCRIT 35.2 % (39.0-53.0); HEMOGLOBIN 11.7 g/dL (13.0-17.5); RED BLOOD COUNT 4.12 x10^6/uL (4.30-5.70); RED CELL DISTRIBUTION WIDTH 15.6 % (11.5-14.5); WHITE BLOOD COUNT 6.2 x10^3/uL (4.0-11.0)
[2020-10-06 06:05] LABS: CALCIUM 8.9 mg/dL (8.5-10.1); GFR 73.5
[2020-10-06] MEDS: ASPIRIN CHEWABLE 81 MG TABLET. PO SCH (08:42)
[2020-10-06] MEDS: TAMSULOSIN 0.4 MG CAP.ER.24H. PO SCH (08:42)
[2020-10-06] MEDS: FINASTERIDE 5 MG TABLET. PO SCH (08:43)
[2020-10-06] MEDS: CARVEDILOL 12.5 MG TABLET. PO SCH (08:43)
[2020-10-06] MEDS: PANTOPRAZOLE 40 MG TABLET.DR. PO SCH (08:43)
[2020-10-06] MEDS: INSULIN LISPRO 300 UNITS/3 ML VIAL. SQ SCH ×3 (08:47→17:16)
--- NOTE | 2020-10-06 09:28 | PDOC ---
PROGRESS NOTES Date of Service DATE: 10/06/20 TIME: 09:27 Assessment Problems Medical Problems: (1) Hemorrhagic stroke Status: Acute (2) Hypertensive emergency Status: Acute (3) Warfarin anticoagulation Status: Acute Left thalamic hemorrhage, most likely related to the fact that he is on warfarin plus his hypertension. CTA negative for aneurysm. Plan Hold warfarin for 1-3 months Resume aspirin in 2 weeks Rehabilitation modalities Blood pressure goal, less than 150/90 Favorable lipid profile, hold on statin Cardiology managing antihypertensives SNU rehab, transfer today Follow-up with me as needed Subjective No complaints Objective Vital Signs Date Time Temp Pulse Resp B/P (MAP) Pulse Ox O2 Delivery O2 Flow Rate FiO2 10/06/20 08:43 75 143/76 10/06/20 07:00 98.3 16 98 Nasal Cannula 3.0 98.3 Intake and Output 10/06/20 07:00 Intake Total 420 ml Output Total 1550 ml Balance -1130 ml Intake Oral 420 ml Output Urine Total 1550 ml PHYSICAL EXAM Alert. Oriented to time, place and person. PERRL. EOMI. CN: no focal findings. Muscle tone: normal. Muscle strength: 5-/5 right hemiparesis DTR: 2+ Plantar reflex: Flexor Gait: not examined in bed. Sensory exam: no abnormal findings. No cerebellar signs elicited. Review of Relevant I have reviewed the following items torito (where applicable) has been applied. Labs Laboratory Tests Test 10/04/20 12:09 10/04/20 16:42 10/04/20 16:45 10/04/20 21:01 Glucose (Fingerstick) 205 mg/dL (70-99) 192 mg/dL (70-99) 179 mg/dL (70-99) Coronavirus (COVID-19)(PCR) Negative (NEGATIVE) SARS-CoV-2 RNA (JAYDEN) Invalid (Negative) Test 10/05/20 06:30 10/05/20 08:14 10/05/20 11:23 10/05/20 16:06 White Blood Count 6.6 x10^3/uL (4.0-11.0) Red Blood Count 4.06 x10^6/uL (4.30-5.70) Hemoglobin 11.6 g/dL (13.0-17.5) Hematocrit 34.5 % (39.0-53.0) Mean Corpuscular Volume 85 fL (79-100) Mean Corpuscular Hemoglobin 29 pg (25-35) Mean Corpuscular Hemoglobin Concent 34 g/dL (31-37) Red Cell Distribution Width 15.6 % (11.5-14.5) Platelet Count 107 x10^3/uL (140-400) Sodium Level 144 mmol/L (136-145) Potassium Level 3.7 mmol/L (3.5-5.1) Chloride Level 108 mmol/L (98-107) Carbon Dioxide Level 30 mmol/L (21-32) Anion Gap 6 (6-14) Blood Urea Nitrogen 13 mg/dL (8-26) Creatinine 0.9 mg/dL (0.7-1.3) Estimated GFR (Cockcroft-Gault) 82.9 Glucose Level 167 mg/dL (70-99) Calcium Level 8.8 mg/dL (8.5-10.1) Glucose (Fingerstick) 168 mg/dL (70-99) 179 mg/dL (70-99) 183 mg/dL (70-99) Test 10/06/20 05:20 10/06/20 08:17 White Blood Count 6.2 x10^3/uL (4.0-11.0) Red Blood Count 4.12 x10^6/uL (4.30-5.70) Hemoglobin 11.7 g/dL (13.0-17.5) Hematocrit 35.2 % (39.0-53.0) Mean Corpuscular Volume 85 fL (79-100) Mean Corpuscular Hemoglobin 28 pg (25-35) Mean Corpuscular Hemoglobin Concent 33 g/dL (31-37) Red Cell Distribution Width 15.6 % (11.5-14.5) Platelet Count 105 x10^3/uL (140-400) Sodium Level 143 mmol/L (136-145) Potassium Level 4.0 mmol/L (3.5-5.1) Chloride Level 107 mmol/L (98-107) Carbon Dioxide Level 30 mmol/L (21-32) Anion Gap 6 (6-14) Blood Urea Nitrogen 15 mg/dL (8-26) Creatinine 1.0 mg/dL (0.7-1.3) Estimated GFR (Cockcroft-Gault) 73.5 Glucose Level 194 mg/dL (70-99) Calcium Level 8.9 mg/dL (8.5-10.1) Glucose (Fingerstick) 188 mg/dL (70-99) Laboratory Tests Test 10/05/20 11:23 10/05/20 16:06 10/06/20 05:20 10/06/20 08:17 Glucose (Fingerstick) 179 mg/dL (70-99) 183 mg/dL (70-99) 188 mg/dL (70-99) White Blood Count 6.2 x10^3/uL (4.0-11.0) Red Blood Count 4.12 x10^6/uL (4.30-5.70) Hemoglobin 11.7 g/dL (13.0-17.5) Hematocrit 35.2 % (39.0-53.0) Mean Corpuscular Volume 85 fL (79-100) Mean Corpuscular Hemoglobin 28 pg (25-35) Mean Corpuscular Hemoglobin Concent 33 g/dL (31-37) Red Cell Distribution Width 15.6 % (11.5-14.5) Platelet Count 105 x10^3/uL (140-400) Sodium Level 143 mmol/L (136-145) Potassium Level 4.0 mmol/L (3.5-5.1) Chloride Level 107 mmol/L (98-107) Carbon Dioxide Level 30 mmol/L (21-32) Anion Gap 6 (6-14) Blood Urea Nitrogen 15 mg/dL (8-26) Creatinine 1.0 mg/dL (0.7-1.3) Estimated GFR (Cockcroft-Gault) 73.5 Glucose Level 194 mg/dL (70-99) Calcium Level 8.9 mg/dL (8.5-10.1) Medications Current Medications Labetalol HCl (Normodyne Iv Push) 20 mg 1X ONCE IVP Last administered on 10/03/20at 00:02; Start 10/03/20 at 00:30; Stop 10/03/20 at 00:31; Status DC Labetalol HCl (Normodyne Iv Push) 20 mg STK-MED ONCE IVP ; Start 10/02/20 at 23:59; Stop 10/03/20 at 00:00; Status DC Nicardipine HCl 50 mg/Sodium Chloride 250 ml @ 25 mls/hr CONT PRN IV SEE I/O RECORD Last administered on 10/04/20at 23:34; Start 10/03/20 at 00:45 Phytonadione 10 mg/Dextrose 51 ml @ 102 mls/hr 1X ONCE IV Last administered on 10/03/20at 02:17; Start 10/03/20 at 02:00; Stop 10/03/20 at 02:30; Status DC Insulin Glargine (Lantus Syringe) 15 unit QHS SQ Last administered on 10/05/20at 21:21; Start 10/03/20 at 21:00 Insulin Human Lispro (HumaLOG) 5 units TIDWMEALS SQ Last administered on 10/06/20at 08:47; Start 10/03/20 at 09:00 Dextrose (Dextrose 50%-Water Syringe) 12.5 gm PRN Q15MIN PRN IV SEE COMMENTS; Start 10/03/20 at 08:15 Dextrose (Iv Dextrose 5%) 250 ml PRN Q15MIN PRN IV SEE COMMENTS; Start 10/03/20 at 08:15; Status Cancel Lorazepam (Ativan Inj) 0.5 mg PRN Q6HRS PRN IVP ANXIETY / AGITATION; Start 10/03/20 at 08:15 Lorazepam (Ativan) 1 mg PRN Q6HRS PRN PO ANXIETY / AGITATION; Start 10/03/20 at 08:15 Ondansetron HCl (Zofran) 4 mg PRN Q6HRS PRN IVP NAUSEA/VOMITING; Start 10/03/20 at 08:15 Al Hydroxide/Mg Hydroxide (Mylanta Plus Xs) 30 ml PRN Q3HRS PRN PO HEARTBURN / GAS; Start 10/03/20 at 08:15 Calcium Carbonate/ Glycine (Tums) 500 mg PRN Q3HRS PRN PO HEARTBURN / GAS; Start 10/03/20 at 08:15 Sodium Chloride (Normal Saline Flush) 3 ml QSHIFT PRN IV AFTER MEDS AND BLOOD DRAWS; Start 10/03/20 at 08:15 Morphine Sulfate (Morphine Sulfate) 2 mg PRN Q1HR PRN IV PAIN Last administered on 10/03/20at 15:41; Start 10/03/20 at 08:15 Magnesium Hydroxide (Milk Of Magnesia) 2,400 mg PRN Q12HR PRN PO CONSTIPATION; Start 10/03/20 at 08:15 Info (Review Meds) 1 ea PRN 1X PRN MC SEE COMMENTS; Start 10/03/20 at 08:15; Status UNV Acetaminophen (Tylenol Supp) 650 mg PRN Q6HRS PRN AL FEVER > 100.5'F or 38'C; Start 10/03/20 at 08:15; Status UNV Nicardipine HCl 50 mg/Sodium Chloride 250 ml @ 25 mls/hr CONT PRN IV HYPERTENSION; Start 10/03/20 at 08:15; Status UNV Info (Review Meds) 1 ea PRN 1X PRN MC SEE COMMENTS; Start 10/03/20 at 08:15 Acetaminophen (Tylenol Supp) 650 mg PRN Q6HRS PRN AL FEVER > 100.5'F or 38'C; Start 10/03/20 at 08:15 Nicardipine HCl 50 mg/Sodium Chloride 250 ml @ 25 mls/hr CONT PRN IV HYPERTENSION; Start 10/03/20 at 08:15; Status UNV Iohexol (Omnipaque 350 Mg/ml) 75 ml 1X ONCE IV Last administered on 10/03/20at 09:30; Start 10/03/20 at 09:30; Stop 10/03/20 at 09:31; Status DC Info (CONTRAST GIVEN -- Rx MONITORING) 1 each PRN DAILY PRN MC SEE COMMENTS; Start 10/03/20 at 09:30; Stop 10/05/20 at 09:29; Status DC Phytonadione (Vitamin K Ampule) 10 mg 1X ONCE SQ Last administered on 10/03/20at 15:42; Start 10/03/20 at 15:00; Stop 10/03/20 at 15:01; Status DC Iohexol (Omnipaque 350 Mg/ml) 100 ml STK-MED ONCE .ROUTE ; Start 10/03/20 at 14:59; Stop 10/03/20 at 14:59; Status DC Acetaminophen/ Hydrocodone Bitart (Lortab 5/325) 1 tab PRN Q6HRS PRN PO PAIN Last administered on 10/05/20at 21:23; Start 10/03/20 at 17:30 Amlodipine Besylate (Norvasc) 5 mg DAILY PO Last administered on 10/04/20at 08:27; Start 10/04/20 at 09:00; Stop 10/04/20 at 17:32; Status DC Metoprolol Tartrate (Lopressor) 25 mg BID PO Last administered on 10/05/20at 08:16; Start 10/04/20 at 09:00; Stop 10/05/20 at 15:53; Status DC Hydralazine HCl (Apresoline Inj) 10 mg PRN Q4HRS PRN IVP ELEVATED BP, SEE COMMENTS Last administered on 10/05/20at 14:10; Start 10/04/20 at 08:15 Lisinopril (Prinivil) 10 mg DAILY PO Last administered on 10/05/20at 08:15; Start 10/05/20 at 09:00; Stop 10/05/20 at 15:44; Status DC Lisinopril (Prinivil) 10 mg 1X ONCE PO Last administered on 10/04/20at 17:04; Start 10/04/20 at 17:00; Stop 10/04/20 at 17:01; Status DC Amlodipine Besylate (Norvasc) 5 mg 1X ONCE PO Last administered on 10/04/20at 17:04; Start 10/04/20 at 17:00; Stop 10/04/20 at 17:01; Status DC Amlodipine Besylate (Norvasc) 10 mg DAILY PO Last administered on 10/06/20at 08:43; Start 10/05/20 at 09:00 Docusate Sodium (Colace) 100 mg PRN DAILY PRN PO HARD STOOLS; Start 10/05/20 at 09:00 Finasteride (Proscar) 5 mg DAILY PO Last administered on 10/06/20at 08:43; Start 10/05/20 at 15:30 Tamsulosin HCl (Flomax) 0.8 mg DAILY PO Last administered on 10/06/20at 08:42; Start 10/05/20 at 15:30 Lisinopril (Prinivil) 20 mg DAILY PO ; Start 10/06/20 at 09:00 Simvastatin (Zocor) 40 mg HS PO Last administered on 10/05/20at 21:16; Start 10/05/20 at 21:00 Pantoprazole Sodium (Protonix) 40 mg DAILYAC PO Last administered on 10/06/20at 08:43; Start 10/06/20 at 07:30 Carvedilol (Coreg) 12.5 mg BIDWMEALS PO Last administered on 10/06/20at 08:43; Start 10/05/20 at 17:00 Aspirin (Aspirin Chewable) 81 mg DAILYWBKFT PO Last administered on 10/06/20at 08:42; Start 10/05/20 at 17:00 Active Scripts Active Reported Meclizine Hcl 25 Mg Tablet 1 Tab PO TID PRN Finasteride 5 Mg Tablet 1 Tab PO DAILY Flomax (Tamsulosin Hcl) 0.4 Mg Cap.er.24h 2 Cap PO DAILY Celebrex (Celecoxib) 200 Mg Capsule 1 Cap PO DAILY Furosemide 80 Mg Tablet 2 Tab PO DAILY Klor-Con 10 (Potassium Chloride) 10 Meq Tablet.er 2 Tab PO DAILY 30 Days Omeprazole 20 Mg Tablet.dr 20 Mg PO DAILY Metformin Hcl 1,000 Mg Tablet 1,000 Mg PO BIDWMEALS Glimepiride 4 Mg Tablet 1 Tab PO DAILY Lisinopril 20 Mg Tablet 20 Mg PO DAILY Warfarin Sodium 5 Mg Tablet 6 Mg PO DAILY Simvastatin 40 Mg Tablet 40 Mg PO HS Vitals/I & O Vital Sign - Last 24 Hours 10/05/20 10/05/20 10/05/20 10/05/20 09:30 11:00 11:27 14:10 Temp 97.6 97.6 Pulse 56 71 Resp 20 20 20 B/P (MAP) 157/75 (102) 156/79 (104) Pulse Ox 95 96 O2 Delivery Nasal Cannula Nasal Cannula Nasal Cannula Nasal Cannula O2 Flow Rate 3.0 3.0 3.0 3.0 10/05/20 10/05/20 10/05/20 10/05/20 14:10 14:40 14:53 15:02 Temp 97.9 97.9 Pulse 68 77 Resp 20 18 B/P (MAP) 194/87 181/78 (112) 144/70 (94) Pulse Ox 97 O2 Delivery Nasal Cannula Nasal Cannula O2 Flow Rate 3.0 3.0 10/05/20 10/05/20 10/05/20 10/05/20 17:28 19:30 19:51 21:23 Temp 98.5 98.5 Pulse 110 91 Resp 18 B/P (MAP) 144/70 161/68 (99) Pulse Ox 97 97 O2 Delivery Nasal Cannula Nasal Cannula Nasal Cannula O2 Flow Rate 3.0 3.0 3.0 10/05/20 10/05/20 10/06/20 10/06/20 21:56 22:03 02:05 07:00 Temp 97.8 97.9 98.3 97.8 97.9 98.3 Pulse 70 73 75 Resp 18 18 16 B/P (MAP) 153/73 (99) 139/75 (96) 143/76 (98) Pulse Ox 97 97 97 98 O2 Delivery Nasal Cannula Nasal Cannula Nasal Cannula Nasal Cannula O2 Flow Rate 3.0 3.0 3.0 3.0 10/06/20 10/06/20 08:43 08:43 Pulse 75 75 B/P (MAP) 143/76 143/76 Intake and Output 10/05/20 10/05/20 10/06/20 15:00 23:00 07:00 Intake Total 420 ml Output Total 450 ml 625 ml 475 ml Balance -30 ml -625 ml -475 ml Justicifation of Admission Dx: Justifications for Admission: Justification of Admission Dx: Yes GENE MEADOWS MD Oct 06, 2020 09:28
--- NOTE | 2020-10-06 11:55 | PDOC ---
[facility] PROGRESS NOTE Date of Service DOS: DATE: 10/06/20 TIME: 11:52 Chief Complaint Chief Complaint Hemorrhagic CVA Normocytic anemia History atrial fibrillation History of CHF Plan: Patient is admitted to ICU on IV nicardipine infusion Vitamin K provided in the ER for warfarin reversal Consultation placed to neurosurgery and neurology Per neurosurgery, SBP goal less than 150 mmHg Consultation placed to neurosurgery and neurology Will place consult to cardiology for management of atrial fibrillation and CHF. Echocardiogram from 08/31/2013 showed normal left ventricular systolic function with ejection fraction 55 - 60%, calcified aortic valve, PAP 52 mmHg. Limited echocardiogram pending Basal/prandial insulin Resume home medications FEN - NPO for now, then diabetic diet. PPX - SCDs FULL CODE Dispo - inpatient for above Advance Care Planning: Total time spent [id number] with patient 16 minutes in discussion with goals of care, comfort care, end-of-life care, pain management, code status; patient names his (Nisreen Cooley) as surrogate decision- maker. History of Present Illness History of Present Illness Patient is 70-year-old male with past history of hypertension, atrial fibrillation on warfarin, who presents to the ED as a code stroke. Symptoms reportedly began approximate 40 minutes prior to arrival in ED with difficulty moving his right upper extremity and slurred speech. He denies any prior history of stroke. CT head on admission showed acute left thalamic hemorrhage with mild adjacent edema. He was initiated on nicardipine infusion. He was admitted to the ICU with neurology and neurosurgery consult. 10/04/2020: Afebrile, patient denies any complaints today. MRI brain showed size of the hematoma is not significantly changed compared to the prior CT. CTA head neck showed no acute arterial abnormality in the neck. Per neurology, will continue to hold warfarin and additional dose of vitamin K was given today. Plan is to discharge to rehab once blood pressure is well controlled; lipid panel is pending at this time. Per cardiology, no further Coumadin recommended for history of A. fib, will treat instead with aspirin. Echocardiogram pending at this time. Patient okay to discharge to [facility] 10/05/2020: No acute events overnight, afebrile. Blood pressure still not within goal range of <150/90. Will DC Lopressor and start Coreg 12.5 mg twice daily twice daily for better blood pressure control. States he wears 4 L O2 at night, currently on 3 L O2. He will need to discharge on aspirin 81 mg to rehab tomorrow. Discussed with RN. 10/06/2020: Afebrile, denies headache. Blood pressure range <150/90; improved today. Per neurology, hold warfarin 1-3 months, and resume aspirin in 2 weeks. Favorable lipid profile, no statin. 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 Greater than 30 minutes was spent managing discharge of this patient. Vitals/I&O Vitals/I&O: Vital Signs Date Time Temp Pulse Resp B/P (MAP) Pulse Ox O2 Delivery O2 Flow Rate FiO2 10/06/20 10:57 97.9 76 18 119/56 (77) 92 Room Air 97.9 10/06/20 08:00 3.0 I & O 10/05/20 10/05/20 10/06/20 15:00 23:00 07:00 Intake Total 420 ml Output Total 450 ml 625 ml 475 ml Balance -30 ml -625 ml -475 ml Physical Exam General: Alert, Oriented X3, Cooperative, No acute distress Heart: Other (AFIB rate controlled. 4/6 systolic murmur to LLS border) Lungs: Clear Abdomen: Soft, No tenderness, Other (protuberant abd) Extremities: No cyanosis, Other (2+ bilateral LE pitting edema) Skin: No breakdown, No significant lesion, Other (varicose veins to LE) Labs Labs: Laboratory Tests Test 10/05/20 16:06 10/06/20 05:20 10/06/20 08:17 Glucose (Fingerstick) 183 mg/dL (70-99) 188 mg/dL (70-99) White Blood Count 6.2 x10^3/uL (4.0-11.0) Red Blood Count 4.12 x10^6/uL (4.30-5.70) Hemoglobin 11.7 g/dL (13.0-17.5) Hematocrit 35.2 % (39.0-53.0) Mean Corpuscular Volume 85 fL (79-100) Mean Corpuscular Hemoglobin 28 pg (25-35) Mean Corpuscular Hemoglobin Concent 33 g/dL (31-37) Red Cell Distribution Width 15.6 % (11.5-14.5) Platelet Count 105 x10^3/uL (140-400) Sodium Level 143 mmol/L (136-145) Potassium Level 4.0 mmol/L (3.5-5.1) Chloride Level 107 mmol/L (98-107) Carbon Dioxide Level 30 mmol/L (21-32) Anion Gap 6 (6-14) Blood Urea Nitrogen 15 mg/dL (8-26) Creatinine 1.0 mg/dL (0.7-1.3) Estimated GFR (Cockcroft-Gault) 73.5 Glucose Level 194 mg/dL (70-99) Calcium Level 8.9 mg/dL (8.5-10.1) Assessment and Plan Assessmemt and Plan Problems Medical Problems: (1) Hemorrhagic stroke Status: Acute (2) Hypertensive emergency Status: Acute (3) Warfarin anticoagulation Status: Acute Comment Review of Relevant I have reviewed the following items torito (where applicable) has been applied. Medications: Current Medications Medications (Trade) Dose Ordered Sig/Sabino Route PRN Reason Start Time Stop Time Status Last Admin Dose Admin Finasteride (Proscar) 5 mg DAILY PO 10/05/20 15:30 10/06/20 08:43 Tamsulosin HCl (Flomax) 0.8 mg DAILY PO 10/05/20 15:30 10/06/20 08:42 Simvastatin (Zocor) 40 mg HS PO 10/05/20 21:00 10/05/20 21:16 Pantoprazole Sodium (Protonix) 40 mg DAILYAC PO 10/06/20 07:30 10/06/20 08:43 Carvedilol (Coreg) 12.5 mg BIDWMEALS PO 10/05/20 17:00 10/06/20 08:43 Aspirin (Aspirin Chewable) 81 mg DAILYWBKFT PO 10/05/20 17:00 10/06/20 09:55 DC 10/06/20 08:42 Justifications for Admission Other Justification ANN ORNELAS MD Oct 06, 2020 11:55
[2020-10-06] MEDS ORDERED: AMLO-187 PO (12:01)
[2020-10-06] MEDS ORDERED: CARV12.511 PO (12:01)
--- NOTE | 2020-10-06 12:03 | SNU/HH DC ---
DISCHARGE ORDERS DISCHARGE INFORMATION: DISCHARGE DATE: Oct 06, 2020 FINAL DIAGNOSIS Problems Medical Problems: (1) Hemorrhagic stroke Status: Acute (2) Hypertensive emergency Status: Acute (3) Warfarin anticoagulation Status: Acute CONDITION ON DISCHARGE: Stable CODE STATUS: Code Status: Full CARE HOME: SNF STAY <30 DAYS: Yes POST DISCHARGE ORDERS: ACTIVITY ORDERS: Activity as tolerated WEIGHT BEARING STATUS: Full weight bearing DIET AFTER DISCHARGE: Cardiac CHECKS AFTER DISCHARGE: CHECKS AFTER DISCHARGE: Check blood press - daily (Maintain blood pressure <150/90 mmHg) FOLLOW-UP: ANTICOAGULATION F/U NEEDED: Hold warfarin 1-3 months, may resume aspirin 81 mg in 2 weeks. TREATMENT/EQUIPMENT ORDERS: ADAPTIVE EQUIPMENT NEEDED: None Physical Therapy For: Evalulation/Treatment Occupational Therapy For: Evaluation/Treatment DISCHARGE MEDICATIONS: Home Meds Active Scripts Amlodipine Besylate (AMLODIPINE BESYLATE) 10 Mg Tablet, 10 MG PO DAILY for HTN, #30 TAB 2 Refills Prov:ANN ORNELAS MD 10/06/20 Carvedilol (CARVEDILOL ) 12.5 Mg Tablet, 12.5 MG PO BIDWMEALS for HTN, #60 TAB 2 Refills Prov:ANN ORNELAS MD 10/06/20 Reported Medications Meclizine Hcl (MECLIZINE HCL) 25 Mg Tablet, 1 TAB PO TID PRN for Vertigo, #90 TAB 10/03/20 Finasteride (FINASTERIDE) 5 Mg Tablet, 1 TAB PO DAILY for BPH, #30 TAB 11 Refills 10/03/20 Tamsulosin Hcl (FLOMAX) 0.4 Mg Cap.er.24h, 2 CAP PO DAILY for BPH, #30 CAP 11 Refills 10/03/20 Celecoxib (CELEBREX) 200 Mg Capsule, 1 CAP PO DAILY for pain/arthritis, #30 CAP 2 Refills 10/03/20 Furosemide (FUROSEMIDE) 80 Mg Tablet, 2 TAB PO DAILY for Fluid overload, #30 TAB 5 Refills 10/03/20 Potassium Chloride (Klor-Con 10) 10 Meq Tablet.er, 2 TAB PO DAILY for Potassium supplementation for 30 Days, #60 TAB 0 Refills 10/03/20 Omeprazole (OMEPRAZOLE) 20 Mg Tablet.dr, 20 MG PO DAILY, TAB 07/25/17 Metformin Hcl (METFORMIN HCL) 1,000 Mg Tablet, 1000 MG PO BIDWMEALS, TAB 07/25/17 Glimepiride (GLIMEPIRIDE) 4 Mg Tablet, 1 TAB PO DAILY, #30 TAB 5 Refills 12/16/13 Lisinopril (LISINOPRIL) 20 Mg Tablet, 20 MG PO DAILY for FOR HYPERTENSION, #30 TAB 0 Refills 12/06/13 Discontinued Reported Medications Warfarin Sodium (WARFARIN SODIUM) 5 Mg Tablet, 6 MG PO DAILY, TAB 12/06/13 Simvastatin (SIMVASTATIN) 40 Mg Tablet, 40 MG PO HS for Hyperlipidemia, #30 TAB 0 Refills 12/06/13 Amlodipine Besylate (AMLODIPINE BESYLATE) 2.5 Mg Tablet, 2.5 MG PO DAILY, TAB 12/06/13 Metoprolol Tartrate (METOPROLOL TARTRATE) 50 Mg Tablet, 50 MG PO BID for FOR HYPERTENSION, #60 TAB 0 Refills 12/06/13 ANN ORNELAS MD Oct 06, 2020 12:03
--- NOTE | 2020-10-06 12:15 | PDOC3 ---
Discharge Summary Visit Information Date of Admission: Oct 03, 2020 Date of Discharge: Oct 06, 2020 Final Diagnosis Problems Medical Problems: (1) Hemorrhagic stroke Status: Acute (2) Hypertensive emergency Status: Acute (3) Warfarin anticoagulation Status: Acute Brief Hospital Course Allergies Allergies Coded Allergies Type Severity Reaction Last Updated Verified propoxyphene Allergy Intermediate 07/25/17 Yes Vital Signs Vital Signs Date Time Temp Pulse Resp B/P (MAP) Pulse Ox O2 Delivery O2 Flow Rate FiO2 10/06/20 10:57 97.9 76 18 119/56 (77) 92 Room Air 97.9 10/06/20 08:00 3.0 Lab Results Laboratory Tests Test 10/04/20 12:09 10/04/20 16:42 10/04/20 16:45 10/04/20 21:01 Glucose (Fingerstick) 205 mg/dL (70-99) 192 mg/dL (70-99) 179 mg/dL (70-99) Coronavirus (COVID-19)(PCR) Negative (NEGATIVE) SARS-CoV-2 RNA (JAYDEN) Invalid (Negative) Test 10/05/20 06:30 10/05/20 08:14 10/05/20 11:23 10/05/20 16:06 White Blood Count 6.6 x10^3/uL (4.0-11.0) Red Blood Count 4.06 x10^6/uL (4.30-5.70) Hemoglobin 11.6 g/dL (13.0-17.5) Hematocrit 34.5 % (39.0-53.0) Mean Corpuscular Volume 85 fL (79-100) Mean Corpuscular Hemoglobin 29 pg (25-35) Mean Corpuscular Hemoglobin Concent 34 g/dL (31-37) Red Cell Distribution Width 15.6 % (11.5-14.5) Platelet Count 107 x10^3/uL (140-400) Sodium Level 144 mmol/L (136-145) Potassium Level 3.7 mmol/L (3.5-5.1) Chloride Level 108 mmol/L (98-107) Carbon Dioxide Level 30 mmol/L (21-32) Anion Gap 6 (6-14) Blood Urea Nitrogen 13 mg/dL (8-26) Creatinine 0.9 mg/dL (0.7-1.3) Estimated GFR (Cockcroft-Gault) 82.9 Glucose Level 167 mg/dL (70-99) Calcium Level 8.8 mg/dL (8.5-10.1) Glucose (Fingerstick) 168 mg/dL (70-99) 179 mg/dL (70-99) 183 mg/dL (70-99) Test 10/06/20 05:20 10/06/20 08:17 White Blood Count 6.2 x10^3/uL (4.0-11.0) Red Blood Count 4.12 x10^6/uL (4.30-5.70) Hemoglobin 11.7 g/dL (13.0-17.5) Hematocrit 35.2 % (39.0-53.0) Mean Corpuscular Volume 85 fL (79-100) Mean Corpuscular Hemoglobin 28 pg (25-35) Mean Corpuscular Hemoglobin Concent 33 g/dL (31-37) Red Cell Distribution Width 15.6 % (11.5-14.5) Platelet Count 105 x10^3/uL (140-400) Sodium Level 143 mmol/L (136-145) Potassium Level 4.0 mmol/L (3.5-5.1) Chloride Level 107 mmol/L (98-107) Carbon Dioxide Level 30 mmol/L (21-32) Anion Gap 6 (6-14) Blood Urea Nitrogen 15 mg/dL (8-26) Creatinine 1.0 mg/dL (0.7-1.3) Estimated GFR (Cockcroft-Gault) 73.5 Glucose Level 194 mg/dL (70-99) Calcium Level 8.9 mg/dL (8.5-10.1) Glucose (Fingerstick) 188 mg/dL (70-99) Laboratory Tests Test 10/05/20 16:06 10/06/20 05:20 10/06/20 08:17 Glucose (Fingerstick) 183 mg/dL (70-99) 188 mg/dL (70-99) White Blood Count 6.2 x10^3/uL (4.0-11.0) Red Blood Count 4.12 x10^6/uL (4.30-5.70) Hemoglobin 11.7 g/dL (13.0-17.5) Hematocrit 35.2 % (39.0-53.0) Mean Corpuscular Volume 85 fL (79-100) Mean Corpuscular Hemoglobin 28 pg (25-35) Mean Corpuscular Hemoglobin Concent 33 g/dL (31-37) Red Cell Distribution Width 15.6 % (11.5-14.5) Platelet Count 105 x10^3/uL (140-400) Sodium Level 143 mmol/L (136-145) Potassium Level 4.0 mmol/L (3.5-5.1) Chloride Level 107 mmol/L (98-107) Carbon Dioxide Level 30 mmol/L (21-32) Anion Gap 6 (6-14) Blood Urea Nitrogen 15 mg/dL (8-26) Creatinine 1.0 mg/dL (0.7-1.3) Estimated GFR (Cockcroft-Gault) 73.5 Glucose Level 194 mg/dL (70-99) Calcium Level 8.9 mg/dL (8.5-10.1) Brief Hospital Course Mr. Mullins is a 70 old male who presented with left thalamic hemorrhage, most likely related to the fact that he is on warfarin plus his hypertension consultation was placed to neurology, neurosurgery, cardiology. CT head on admission showed acute left thalamic hemorrhage with mild adjacent edema. He was treated with IV nicardipine to control blood pressure less than 150/90 mmHg. Repeat MRI showed no significant change compared to the prior CT. CTA head neck showed no acute arterial abnormality in the neck. Blood pressure medications adjusted. He was recommended to hold warfarin 1-3 months, and resume aspirin in 2 weeks. Stable to discharge to acute rehab. Recommend follow-up with PCP in 2 weeks when out of rehab to resume aspirin. Discharge Information Condition at Discharge: Improved Follow Up: Weeks Disposition/Orders: D/C to Another Facility Scheduled Amlodipine Besylate (Amlodipine Besylate) 10 Mg Tablet, 10 MG PO DAILY for HTN, #30 Ref 2 Prescribed by: ANN ORNELAS MD on 10/06/20 1201 Carvedilol (Carvedilol ) 12.5 Mg Tablet, 12.5 MG PO BIDWMEALS for HTN, #60 Ref 2 Prescribed by: ANN ORNELAS MD on 10/06/20 1201 Celecoxib (Celebrex) 200 Mg Capsule, 1 CAP PO DAILY for pain/arthritis, #30 Ref 2 (Reported) Entered as Reported by: RANDALL KRISHNA RN on 10/03/20240 Last Taken: UNKNOWN on Unknown Date & Time Last Action: New Order on 10/03/20240 by RANDALL KRISHNA RN Finasteride (Finasteride) 5 Mg Tablet, 1 TAB PO DAILY for BPH, #30 Ref 11 (Reported) Entered as Reported by: RANDALL KRISHNA RN on 10/03/20240 Last Taken: UNKNOWN on Unknown Date & Time Last Action: Continued on 10/05/20 1442 by JD ANTHONY RN Furosemide (Furosemide) 80 Mg Tablet, 2 TAB PO DAILY for Fluid overload, #30 Ref 5 (Reported) Entered as Reported by: RANDALL KRISHNA RN on 10/03/20240 Last Taken: UNKNOWN on Unknown Date & Time Last Action: New Order on 10/03/20240 by RANDALL KRISHNA RN Glimepiride (Glimepiride) 4 Mg Tablet, 1 TAB PO DAILY, #30 Ref 5 (Reported) Entered as Reported by: GIANNA LION on 12/16/13 09 Last Action: Reviewed on 10/03/20240 by RANDALL KRISHNA RN Lisinopril (Lisinopril) 20 Mg Tablet, 20 MG PO DAILY for FOR HYPERTENSION, #30 Ref 0 (Reported) Entered as Reported by: JUSTIN MELO on 12/06/13820 Last Action: Reviewed on 10/03/20240 by RANDALL KRISHNA RN Metformin Hcl (Metformin Hcl) 1,000 Mg Tablet, 1,000 MG PO BIDWMEALS, (Reported) Entered as Reported by: LILIANA MTZ on 07/25/171111 Last Action: Reviewed on 10/03/20240 by RANDALL KRISHNA RN Omeprazole (Omeprazole) 20 Mg Tablet.dr, 20 MG PO DAILY, (Reported) Entered as Reported by: LILIANA MTZ on 07/25/171111 Last Action: Converted on 10/05/20 1550 by ANN ORNELAS MD Potassium Chloride (Klor-Con 10) 10 Meq Tablet.er, 2 TAB PO DAILY for Potassium supplementation for 30 Days, #60 Ref 0 (Reported) Entered as Reported by: RANDALL KRISHNA RN on 10/03/20240 Last Taken: UNKNOWN on Unknown Date & Time Last Action: New Order on 10/03/20240 by RANDALL KRISHNA RN Tamsulosin Hcl (Flomax) 0.4 Mg Cap.er.24h, 2 CAP PO DAILY for BPH, #30 Ref 11 (Reported) Entered as Reported by: RANDALL KRISHNA RN on 10/03/20240 Last Taken: UNKNOWN on Unknown Date & Time Last Action: Continued on 10/05/20 144 by JD ANTHONY RN Scheduled PRN Meclizine Hcl (Meclizine Hcl) 25 Mg Tablet, 1 TAB PO TID PRN for Vertigo, #90 (Reported) Entered as Reported by: RANDALL KRISHNA RN on 10/03/20240 Last Taken: UNKNOWN on Unknown Date & Time Last Action: New Order on 10/03/20240 by RANDALL KRISHNA RN Discontinued Medications Amlodipine Besylate (Amlodipine Besylate) 2.5 Mg Tablet, 2.5 MG PO DAILY, (Reported) Entered as Reported by: JUSTIN MELO on 12/06/13820 Last Action: Discontinued on 10/04/20813 by KATE HANSON Metoprolol Tartrate (Metoprolol Tartrate) 50 Mg Tablet, 50 MG PO BID for FOR HYPERTENSION, #60 Ref 0 (Reported) Entered as Reported by: JUSTIN MELO on 12/06/13820 Last Action: Discontinued on 10/04/20813 by KATE HANSON Simvastatin (Simvastatin) 40 Mg Tablet, 40 MG PO HS for Hyperlipidemia, #30 Ref 0 (Reported) Entered as Reported by: JUSTIN MELO on 12/06/13820 Last Action: Continued on 10/05/20 1550 by ANN ORNELAS MD Warfarin Sodium (Warfarin Sodium) 5 Mg Tablet, 6 MG PO DAILY, (Reported) Entered as Reported by: JUSTIN MELO on 12/06/13820 Last Action: Reviewed on 10/03/20240 by RANDALL KRISHNA RN Justicifation of Admission Dx: Justifications for Admission: Justification of Admission Dx: Yes ANN ORNELAS MD Oct 06, 2020 12:14
--- NOTE | 2020-10-06 12:45 | PDOC ---
CARDIO Progress Notes Date and Time Date of Service 10/06/2020 Time of Evaluation 1210 Subjective Subjective: No Chest Pain, No shortness of breath, No Palpitations Vitals Vitals Vital Signs Date Time Temp Pulse Resp B/P (MAP) Pulse Ox O2 Delivery O2 Flow Rate FiO2 10/06/20 10:57 97.9 76 18 119/56 (77) 92 Room Air 97.9 10/06/20 08:00 3.0 Weight Weight [ ] Input and Output Intake and Output Intake and Output 10/06/20 07:00 Intake Total 420 ml Output Total 1550 ml Balance -1130 ml Intake Oral 420 ml Output Urine Total 1550 ml Laboratory Labs Laboratory Tests Test 10/05/20 16:06 10/06/20 05:20 10/06/20 08:17 10/06/20 12:10 Glucose (Fingerstick) 183 mg/dL (70-99) 188 mg/dL (70-99) 211 mg/dL (70-99) White Blood Count 6.2 x10^3/uL (4.0-11.0) Red Blood Count 4.12 x10^6/uL (4.30-5.70) Hemoglobin 11.7 g/dL (13.0-17.5) Hematocrit 35.2 % (39.0-53.0) Mean Corpuscular Volume 85 fL (79-100) Mean Corpuscular Hemoglobin 28 pg (25-35) Mean Corpuscular Hemoglobin Concent 33 g/dL (31-37) Red Cell Distribution Width 15.6 % (11.5-14.5) Platelet Count 105 x10^3/uL (140-400) Sodium Level 143 mmol/L (136-145) Potassium Level 4.0 mmol/L (3.5-5.1) Chloride Level 107 mmol/L (98-107) Carbon Dioxide Level 30 mmol/L (21-32) Anion Gap 6 (6-14) Blood Urea Nitrogen 15 mg/dL (8-26) Creatinine 1.0 mg/dL (0.7-1.3) Estimated GFR (Cockcroft-Gault) 73.5 Glucose Level 194 mg/dL (70-99) Calcium Level 8.9 mg/dL (8.5-10.1) Physical Exam HEENT: Neck Supple W Full Motion Chest: Symmetric LUNGS: Clear to Auscultation Heart: irregularly irregular (afib) Abdomen: Soft N/T Extremities: No Calf Tenderness Neurology: alert, oriented, follow commands Assessment Assessment 1. Acute left thalamic hemorrhagic stroke with mild adjacent edema, neurology following 2. Chronic afib: rate controlled. EF and WM nml 3. Chronic anticoagulation therapy: INR down to 1.4 after vit K 4. CAD: past stents. clinically stable 5. HTN: controlled 6. HLP 7. DM2: per PCP 8. Intermittent episodes of slow afib: 40s presently controlled at 60s 9. Pulmonary hypertension: compensated Recommendations 1. Norvasc. May increase lisinopril for BP control. DC coreg would not be able to place on higher dose due to bradycardia. MCOT prior to DC to SNU and note for any tachybrady issues and follow up in office next month 2. No further coumadin. Moving forward ASA for ishcemic stroke prevention when clear with neurology 3. LAAO referral. 4. Secondary prevention measures Justicifation of Admission Dx: Justifications for Admission: Justification of Admission Dx: Yes KATE HANSON CRYPTOLOGIC SUPPORT SPECIALIST Oct 06, 2020 12:45
[2020-10-06] MEDS: LISINOPRIL 20 MG TABLET PO SCH (12:59)
--- NOTE | 2020-10-06 14:26 | NUR ---
SS following up with discharge planning. SS reviewed pt chart and discussed with pt RN. Pt is currently requiring oxygen at three liters nasal canula. COVID19 negative. PT/OT recommended acute rehabilitation. Pt requesting to go to [facility], ; fax [phone]. Pt accepted at [facility] pending insurance authorization. Discharge orders received and phoned and faxed to [facility]. SS will continue to follow for discharge planning.
--- NOTE | 2020-10-06 15:55 | NUR ---
DISCHARGED PATIENT TO HOME. DISCHARGE INSTRUCTIONS GIVEN. PIV AND HEART MONITOR REMOVED. ESCORTED PATIENT OFF UNIT INTO A PRIVATE VEHICLE. Addendum: 10/09/20 at 1242 by LIANA HINTON RN Wrong patient. charted in error
[2020-10-06] MEDS: SIMVASTATIN 40 MG TABLET. PO SCH (20:46)
[2020-10-06] MEDS: METOPROLOL TART IMMED RELEASE 25 MG TABLET. PO SCH (20:46)
[2020-10-06] MEDS: HYDROcodone/APAP 5/325MG 1 TAB TABLET PO PRN (20:48)
[2020-10-06] MEDS: DOCUSATE SODIUM 100 MG CAPSULE. PO PRN (20:49)
[2020-10-06] MEDS: INSULIN GLARGINE SYRINGE. SQ SCH (20:57)
[2020-10-06] MEDS: hydrALAZINE 20 MG/ML VIAL. IVP PRN (22:22)
[2020-10-07 02:45] VITALS: BP 128/76
[2020-10-07 07:00] VITALS: BP 168/90
[2020-10-07 07:10] LABS: HEMATOCRIT 36.6 % (39.0-53.0); HEMOGLOBIN 12.1 g/dL (13.0-17.5); RED BLOOD COUNT 4.27 x10^6/uL (4.30-5.70); RED CELL DISTRIBUTION WIDTH 15.9 % (11.5-14.5); WHITE BLOOD COUNT 5.7 x10^3/uL (4.0-11.0)
[2020-10-07 07:27] LABS: CREATININE 0.9 mg/dL (0.7-1.3); GFR 82.9; POTASSIUM 4.2 mmol/L (3.5-5.1)
[2020-10-07] MEDS: TAMSULOSIN 0.4 MG CAP.ER.24H. PO SCH (09:03)
[2020-10-07] MEDS: LISINOPRIL 20 MG TABLET PO SCH (09:04)
[2020-10-07] MEDS: METOPROLOL TART IMMED RELEASE 25 MG TABLET. PO SCH ×2 (09:04→21:44)
[2020-10-07] MEDS: PANTOPRAZOLE 40 MG TABLET.DR. PO SCH (09:04)
[2020-10-07] MEDS: FINASTERIDE 5 MG TABLET. PO SCH (09:04)
[2020-10-07] MEDS: INSULIN LISPRO 300 UNITS/3 ML VIAL. SQ SCH ×3 (09:18→19:26)
[2020-10-07 11:00] VITALS: BP 144/73
[2020-10-07 15:00] VITALS: BP 150/72
--- NOTE | 2020-10-07 16:54 | PDOC ---
GENERAL General: Patient examined chart reviewed today's hospital day 5 for this patient with left thalamic hemorrhagic stroke. He is ready for discharge to [facility] and discharge orders have been written but he is pending insurance approval. He is seen with son and [id number] at bedside this evening. He has no complaints and tells me he is slowly getting stronger. We will continue current management and plan on discharge to [facility] as soon as arrangements can be made Problems: (1) Type 2 diabetes mellitus (2) Hemorrhagic stroke (3) Hypertensive emergency VITAL SIGNS Vital Signs/I&O: Vital Signs Date Time Temp Pulse Resp B/P (MAP) Pulse Ox O2 Delivery O2 Flow Rate FiO2 10/07/20 15:00 97.9 83 19 150/72 (98) 98 Nasal Cannula 3.0 97.9 I & O 10/06/20 10/06/20 10/07/20 15:00 23:00 07:00 Intake Total 820 ml 620 ml 100 ml Output Total 600 ml 400 ml 200 ml Balance 220 ml 220 ml -100 ml In general patient is sitting up resting in bed comfortable appropriately interactive in no acute distress HEENT exam is notable for right facial droop Neck is soft and supple no adenopathy or thyromegaly noted Chest is clear to auscultation Heart S1-S2 normal regular rate and rhythm 2 x 6 systolic murmur noted loudest at the left sternal border Abdomen soft nontender nondistended no masses organomegaly noted Extremity exam is unremarkable for acute abnormality no weakness appreciated ALLERGIES Allergies: Allergies Coded Allergies Type Severity Reaction Last Updated Verified propoxyphene Allergy Intermediate 07/25/17 Yes MEDS Medications: Current Medications Medications (Trade) Dose Ordered Sig/Sabino Route PRN Reason Start Time Stop Time Status Last Admin Dose Admin Metoprolol Tartrate (Lopressor) 12.5 mg BID PO 10/06/20 21:00 10/07/20 09:04 LAB Lab: Laboratory Tests Test 10/06/20 17:14 10/06/20 20:36 10/07/20 06:20 10/07/20 07:34 Glucose (Fingerstick) 176 mg/dL (70-99) H 173 mg/dL (70-99) H 210 mg/dL (70-99) H White Blood Count 5.7 x10^3/uL (4.0-11.0) Red Blood Count 4.27 x10^6/uL (4.30-5.70) L Hemoglobin 12.1 g/dL (13.0-17.5) L Hematocrit 36.6 % (39.0-53.0) L Mean Corpuscular Volume 86 fL (79-100) Mean Corpuscular Hemoglobin 28 pg (25-35) Mean Corpuscular Hemoglobin Concent 33 g/dL (31-37) Red Cell Distribution Width 15.9 % (11.5-14.5) H Platelet Count 107 x10^3/uL (140-400) L Sodium Level 143 mmol/L (136-145) Potassium Level 4.2 mmol/L (3.5-5.1) Chloride Level 106 mmol/L (98-107) Carbon Dioxide Level 32 mmol/L (21-32) Anion Gap 5 (6-14) L Blood Urea Nitrogen 17 mg/dL (8-26) Creatinine 0.9 mg/dL (0.7-1.3) Estimated GFR (Cockcroft-Gault) 82.9 Glucose Level 194 mg/dL (70-99) H Calcium Level 9.0 mg/dL (8.5-10.1) Test 10/07/20 11:34 Glucose (Fingerstick) 199 mg/dL (70-99) H Laboratory Tests 10/07/20 06:20 Laboratory Tests 10/07/20 06:20 ASSESSMENT & PLAN A&P Plan as noted above This note was created using [employer] and may have omissions and/or errors due to the nature of real-time voice wash mill operator. Justifications for Admission Other Justification ZANE MALDONADO MD Oct 07, 2020 16:54
[2020-10-07 19:00] VITALS: BP 159/75
--- NOTE | 2020-10-07 19:21 | NUR ---
PT'S SON HAS BEEN EMPTYING PT'S URINAL. PT CAME TO NURSE'S STATION AND REPORTED THAT URINE WAS BLOODY. NEW URINAL GIVEN TO PT AND SAMPLE COLLECTED BY RN. ORDER PLACED PER DR JOHNSON FOR UA.
[2020-10-07 19:40] LABS: BILIRUBIN,URINE NEGATIVE (NEG); CLARITY,URINE CLEAR; COLOR,URINE YELLOW; NITRITE,URINE NEGATIVE (NEG); PH,URINE 5.5 (<5.0-8.0); PROTEIN,URINE 30 mg/dL (NEG-TRACE)
[2020-10-07 19:45] LABS: BACTERIA,URINE 0 /HPF (0-FEW); RBC,URINE 0 /HPF (0-2); WBC,URINE OCC /HPF (0-4)
[2020-10-07] MEDS ORDERED: INSULIN GLARGINE SYRINGE. SQ SCH (21:00)
[2020-10-07] MEDS: SIMVASTATIN 40 MG TABLET. PO SCH (21:42)
[2020-10-07] MEDS: HYDROcodone/APAP 5/325MG 1 TAB TABLET PO PRN (21:45)
[2020-10-07 22:47] VITALS: BP 143/74
[2020-10-08 03:26] VITALS: BP 162/89
[2020-10-08 07:00] VITALS: BP 147/85
[2020-10-08 07:04] LABS: HEMATOCRIT 34.6 % (39.0-53.0); HEMOGLOBIN 11.6 g/dL (13.0-17.5); RED BLOOD COUNT 4.1 x10^6/uL (4.30-5.70); RED CELL DISTRIBUTION WIDTH 15.5 % (11.5-14.5); WHITE BLOOD COUNT 4.6 x10^3/uL (4.0-11.0)
[2020-10-08 07:35] LABS: CALCIUM 8.9 mg/dL (8.5-10.1); GFR 73.5; POTASSIUM 4.4 mmol/L (3.5-5.1)
[2020-10-08] MEDS: TAMSULOSIN 0.4 MG CAP.ER.24H. PO SCH (09:31)
[2020-10-08] MEDS: PANTOPRAZOLE 40 MG TABLET.DR. PO SCH (09:31)
[2020-10-08] MEDS: FINASTERIDE 5 MG TABLET. PO SCH (09:32)
[2020-10-08] MEDS: LISINOPRIL 20 MG TABLET PO SCH (09:32)
[2020-10-08] MEDS: METOPROLOL TART IMMED RELEASE 25 MG TABLET. PO SCH ×2 (09:32→22:25)
[2020-10-08] MEDS: DOCUSATE SODIUM 100 MG CAPSULE. PO PRN (09:33)
[2020-10-08] MEDS: INSULIN LISPRO 300 UNITS/3 ML VIAL. SQ SCH ×3 (09:38→17:24)
[2020-10-08 10:34] VITALS: BP 141/71
--- NOTE | 2020-10-08 14:21 | NUR ---
PT HAS PURPLE-RED DISCOLORATION, WARMTH, PAIN, AND SWELLING TO LT FOREARM. PT WAS OFFERED ICE PACK BUT DECLINED.
--- NOTE | 2020-10-08 14:40 | NUR ---
DR MALDONADO NOTIFIED OF LT FOREARM CONDITION AND UNCONTROLLED GLUCOSE.
--- NOTE | 2020-10-08 14:53 | PDOC ---
GENERAL General: Patient examined chart reviewed discussed with nursing. Patient is sleeping this afternoon on my assessment. We are awaiting insurance authorization for discharge to skilled rehab. He has a superficial thrombophlebitis of his left upper extremity from an old intravenous site. It is getting more irritated we will proceed with antibiotic treatment. He stays hyperglycemic. We have adjusted his insulin. Continue current management otherwise. Problems: (1) Hemorrhagic stroke (2) Type 2 diabetes mellitus VITAL SIGNS Vital Signs/I&O: Vital Signs Date Time Temp Pulse Resp B/P (MAP) Pulse Ox O2 Delivery O2 Flow Rate FiO2 10/08/20 10:34 97.7 82 17 141/71 (94) 98 Nasal Cannula 4.0 97.7 I & O 10/07/20 10/07/20 10/08/20 14:59 22:59 06:59 Intake Total 240 ml 180 ml 100 ml Output Total 150 ml 650 ml 550 ml Balance 90 ml -470 ml -450 ml Patient evaluated he is sleeping during my assessment today Chest is clear to auscultation anteriorly Heart S1-S2 normal regular rate rhythm 2 x 6 systolic murmur noted loudest at the left sternal border Superficial thrombophlebitis distal left upper extremity volar aspect at old intravenous site. ALLERGIES Allergies: Allergies Coded Allergies Type Severity Reaction Last Updated Verified propoxyphene Allergy Intermediate 07/25/17 Yes MEDS Medications: Current Medications Medications (Trade) Dose Ordered Sig/Sabino Start Time Stop Time Status Last Admin Dose Admin Acetaminophen (Tylenol Supp) 650 mg PRN Q6HRS PRN 10/03/20 08:15 Acetaminophen/ Hydrocodone Bitart (Lortab 5/325) 1 tab PRN Q6HRS PRN 10/03/20 17:30 10/07/20 21:45 Al Hydroxide/Mg Hydroxide (Mylanta Plus Xs) 30 ml PRN Q3HRS PRN 10/03/20 08:15 Amlodipine Besylate (Norvasc) 10 mg DAILY 10/05/20 09:00 10/08/20 09:32 Aspirin (Aspirin Chewable) 81 mg [id number] 10/05/20 17:00 10/06/20 09:55 DC 10/06/20 08:42 Calcium Carbonate/ Glycine (Tums) 500 mg PRN Q3HRS PRN 10/03/20 08:15 Carvedilol (Coreg) 12.5 mg BIDWMEALS 10/05/20 17:00 10/06/20 12:45 DC 10/06/20 08:43 Dextrose (Dextrose 50%-Water Syringe) 12.5 gm PRN Q15MIN PRN 10/03/20 08:15 Dextrose (Iv Dextrose 5%) 250 ml PRN Q15MIN PRN 10/03/20 08:15 Cancel Docusate Sodium (Colace) 100 mg PRN DAILY PRN 10/05/20 09:00 10/08/20 09:33 Finasteride (Proscar) 5 mg DAILY 10/05/20 15:30 10/08/20 09:32 Hydralazine HCl (Apresoline Inj) 10 mg PRN Q4HRS PRN 10/04/20 08:15 10/06/20 22:22 Info (CONTRAST GIVEN -- Rx MONITORING) 1 each PRN DAILY PRN 10/03/20 09:30 10/05/20 09:29 DC Info (Review Meds) 1 ea PRN 1X PRN 10/03/20 08:15 Insulin Glargine (Lantus Syringe) 20 unit QHS 10/07/20 21:00 10/07/20 22:00 Insulin Human Lispro (HumaLOG) 5 units TIDWMEALS 10/03/20 09:00 10/08/20 12:23 Iohexol (Omnipaque 350 Mg/ml) 100 ml STK-MED ONCE 10/03/20 14:59 10/03/20 14:59 DC Labetalol HCl (Normodyne Iv Push) 20 mg STK-MED ONCE 10/02/20 23:59 10/03/20 00:00 DC Lisinopril (Prinivil) 20 mg DAILY 10/06/20 09:00 10/08/20 09:32 Lorazepam (Ativan Inj) 0.5 mg PRN Q6HRS PRN 10/03/20 08:15 Lorazepam (Ativan) 1 mg PRN Q6HRS PRN 10/03/20 08:15 10/07/20 21:45 Magnesium Hydroxide (Milk Of Magnesia) 2,400 mg PRN Q12HR PRN 10/03/20 08:15 Metoprolol Tartrate (Lopressor) 12.5 mg BID 10/06/20 21:00 10/08/20 09:32 Morphine Sulfate (Morphine Sulfate) 2 mg PRN Q1HR PRN 10/03/20 08:15 10/03/20 15:41 Nicardipine HCl 50 mg/Sodium Chloride 250 ml @ 25 mls/hr CONT PRN 10/03/20 08:15 UNV Ondansetron HCl (Zofran) 4 mg PRN Q6HRS PRN 10/03/20 08:15 Pantoprazole Sodium (Protonix) 40 mg DAILYAC 10/06/20 07:30 10/08/20 09:31 Phytonadione (Vitamin K Ampule) 10 mg 1X ONCE 10/03/20 15:00 10/03/20 15:01 DC 10/03/20 15:42 Phytonadione 10 mg/Dextrose 51 ml @ 102 mls/hr 1X ONCE 10/03/20 02:00 10/03/20 02:30 DC 10/03/20 02:17 Simvastatin (Zocor) 40 mg HS 10/05/20 21:00 10/07/20 21:42 Sodium Chloride (Normal Saline Flush) 3 ml QSHIFT PRN 10/03/20 08:15 Tamsulosin HCl (Flomax) 0.8 mg DAILY 10/05/20 15:30 10/08/20 09:31 Current Medications Medications (Trade) Dose Ordered Sig/Sabino Route PRN Reason Start Time Stop Time Status Last Admin Dose Admin Insulin Glargine (Lantus Syringe) 20 unit QHS SQ 10/07/20 21:00 10/07/20 22:00 LAB Lab: Laboratory Tests Test 10/07/20 16:54 10/07/20 19:23 10/07/20 20:27 10/08/20 06:30 Glucose (Fingerstick) 256 mg/dL (70-99) H 268 mg/dL (70-99) H Urine Collection Type Unknown Urine Color Yellow Urine Clarity Clear Urine pH 5.5 (<5.0-8.0) Urine Specific [place] 1.020 (1.000-1.030) Urine Protein 30 mg/dL (NEG-TRACE) Urine Glucose (UA) >=1000 mg/dL (NEG) Urine Ketones (Stick) Negative mg/dL (NEG) Urine Blood Negative (NEG) Urine Nitrite Negative (NEG) Urine Bilirubin Negative (NEG) Urine Urobilinogen Dipstick 1.0 mg/dL (0.2 mg/dL) Urine Leukocyte Esterase Negative (NEG) Urine RBC 0 /HPF (0-2) Urine WBC Occ /HPF (0-4) Urine Squamous Epithelial Cells Few /LPF Urine Bacteria 0 /HPF (0-FEW) Urine Mucus Slight /LPF White Blood Count 4.6 x10^3/uL (4.0-11.0) Red Blood Count 4.10 x10^6/uL (4.30-5.70) L Hemoglobin 11.6 g/dL (13.0-17.5) L Hematocrit 34.6 % (39.0-53.0) L Mean Corpuscular Volume 85 fL (79-100) Mean Corpuscular Hemoglobin 28 pg (25-35) Mean Corpuscular Hemoglobin Concent 34 g/dL (31-37) Red Cell Distribution Width 15.5 % (11.5-14.5) H Platelet Count 109 x10^3/uL (140-400) L Sodium Level 144 mmol/L (136-145) Potassium Level 4.4 mmol/L (3.5-5.1) Chloride Level 108 mmol/L (98-107) H Carbon Dioxide Level 33 mmol/L (21-32) H Anion Gap 3 (6-14) L Blood Urea Nitrogen 17 mg/dL (8-26) Creatinine 1.0 mg/dL (0.7-1.3) Estimated GFR (Cockcroft-Gault) 73.5 Glucose Level 202 mg/dL (70-99) H Calcium Level 8.9 mg/dL (8.5-10.1) Test 10/08/20 08:09 10/08/20 11:53 Glucose (Fingerstick) 214 mg/dL (70-99) H 236 mg/dL (70-99) H Laboratory Tests 10/08/20 06:30 Laboratory Tests 10/08/20 06:30 ASSESSMENT & PLAN A&P Plan as noted above This note was created using [employer] and may have omissions and/or errors due to the nature of real-time voice pillowcase cutter. Justifications for Admission Other Justification ZANE MALDONADO MD Oct 08, 2020 14:53
[2020-10-08 15:00] VITALS: BP 121/68
[2020-10-08] MEDS: DOXYCYCLINE HYCLATE 100 MG TABLET PO SCH ×2 (15:45→22:26)
--- NOTE | 2020-10-08 17:26 | NUR ---
PT'S FAMILY BROUGHT IN CH[place]LE BURRITO. PT HAD ALREADY EATEN HALF THE BURRITO BEFORE STAFF NOTICED. PT AND WERE EDUCATED ON SWALLOWING PRECAUTIONS AND TAKING SMALL BITES CONSIDERING PT'S RECENT HEMORRHAGIC STROKE.
[2020-10-08 19:58] VITALS: BP 151/73
[2020-10-08] MEDS ORDERED: INSULIN GLARGINE SYRINGE. SQ SCH (21:00)
[2020-10-08] MEDS: HYDROcodone/APAP 5/325MG 1 TAB TABLET PO PRN (22:25)
[2020-10-08] MEDS: SIMVASTATIN 40 MG TABLET. PO SCH (22:26)
[2020-10-08 22:47] VITALS: BP 199/97
[2020-10-09 02:23] LABS: HEMOGLOBIN A1C 7.3 % (4.8-5.6)
[2020-10-09 02:55] VITALS: BP 145/79
[2020-10-09 07:00] VITALS: BP 149/77
[2020-10-09 07:10] LABS: HEMATOCRIT 33.5 % (39.0-53.0); HEMOGLOBIN 10.9 g/dL (13.0-17.5); RED BLOOD COUNT 3.9 x10^6/uL (4.30-5.70); RED CELL DISTRIBUTION WIDTH 15.7 % (11.5-14.5); WHITE BLOOD COUNT 4.2 x10^3/uL (4.0-11.0)
[2020-10-09 07:32] LABS: CALCIUM 8.6 mg/dL (8.5-10.1); CREATININE 1.1 mg/dL (0.7-1.3); GFR 65.8; POTASSIUM 4.3 mmol/L (3.5-5.1)
[2020-10-09] MEDS: DOXYCYCLINE HYCLATE 100 MG TABLET PO SCH (08:52)
[2020-10-09] MEDS: PANTOPRAZOLE 40 MG TABLET.DR. PO SCH (08:52)
[2020-10-09] MEDS: TAMSULOSIN 0.4 MG CAP.ER.24H. PO SCH (08:53)
[2020-10-09] MEDS: LISINOPRIL 20 MG TABLET PO SCH (08:53)
[2020-10-09] MEDS: METOPROLOL TART IMMED RELEASE 25 MG TABLET. PO SCH (08:53)
[2020-10-09] MEDS: FINASTERIDE 5 MG TABLET. PO SCH (08:53)
[2020-10-09] MEDS: INSULIN LISPRO 300 UNITS/3 ML VIAL. SQ SCH ×2 (08:57→12:00)
--- NOTE | 2020-10-09 09:03 | PDOC ---
PROGRESS NOTES Date of Service DATE: 10/09/20 TIME: 09:01 Assessment Problems Medical Problems: (1) Hemorrhagic stroke Status: Acute (2) Hypertensive emergency Status: Acute (3) Warfarin anticoagulation Status: Acute Left thalamic hemorrhage, most likely related to the fact that he is on warfarin plus his hypertension. CTA negative for aneurysm. Plan Hold warfarin for 1-3 months Resume aspirin in 2 weeks Rehabilitation modalities Blood pressure goal, less than 150/90 Favorable lipid profile, hold on statin Cardiology managing antihypertensives SNU rehab, was ready for transfer last week, insurance company approval is still pending Follow-up with me as needed Subjective Has intermittent mild headaches Objective Vital Signs Date Time Temp Pulse Resp B/P (MAP) Pulse Ox O2 Delivery O2 Flow Rate FiO2 10/09/20 08:53 84 149/77 10/09/20 07:00 97.6 18 99 Nasal Cannula 4.0 97.6 Intake and Output 10/09/20 07:00 Intake Total 1740 ml Output Total 900 ml Balance 840 ml Intake Oral 1740 ml Output Urine Total 900 ml # Voids 1 PHYSICAL EXAM Alert. Oriented to time, place and person. PERRL. EOMI. CN: no focal findings. Muscle tone: normal. Muscle strength: 5-/5 right hemiparesis DTR: 2+ Plantar reflex: Flexor Gait: not examined in bed. Sensory exam: no abnormal findings. No cerebellar signs elicited. Review of Relevant I have reviewed the following items torito (where applicable) has been applied. Labs Laboratory Tests Test 10/07/20 11:34 10/07/20 16:54 10/07/20 19:23 10/07/20 20:27 Glucose (Fingerstick) 199 mg/dL (70-99) 256 mg/dL (70-99) 268 mg/dL (70-99) Urine Collection Type Unknown Urine Color Yellow Urine Clarity Clear Urine pH 5.5 (<5.0-8.0) Urine Specific [place] 1.020 (1.000-1.030) Urine Protein 30 mg/dL (NEG-TRACE) Urine Glucose (UA) >=1000 mg/dL (NEG) Urine Ketones (Stick) Negative mg/dL (NEG) Urine Blood Negative (NEG) Urine Nitrite Negative (NEG) Urine Bilirubin Negative (NEG) Urine Urobilinogen Dipstick 1.0 mg/dL (0.2 mg/dL) Urine Leukocyte Esterase Negative (NEG) Urine RBC 0 /HPF (0-2) Urine WBC Occ /HPF (0-4) Urine Squamous Epithelial Cells Few /LPF Urine Bacteria 0 /HPF (0-FEW) Urine Mucus Slight /LPF Test 10/08/20 06:30 10/08/20 08:09 10/08/20 11:53 10/08/20 16:59 White Blood Count 4.6 x10^3/uL (4.0-11.0) Red Blood Count 4.10 x10^6/uL (4.30-5.70) Hemoglobin 11.6 g/dL (13.0-17.5) Hematocrit 34.6 % (39.0-53.0) Mean Corpuscular Volume 85 fL (79-100) Mean Corpuscular Hemoglobin 28 pg (25-35) Mean Corpuscular Hemoglobin Concent 34 g/dL (31-37) Red Cell Distribution Width 15.5 % (11.5-14.5) Platelet Count 109 x10^3/uL (140-400) Sodium Level 144 mmol/L (136-145) Potassium Level 4.4 mmol/L (3.5-5.1) Chloride Level 108 mmol/L (98-107) Carbon Dioxide Level 33 mmol/L (21-32) Anion Gap 3 (6-14) Blood Urea Nitrogen 17 mg/dL (8-26) Creatinine 1.0 mg/dL (0.7-1.3) Estimated GFR (Cockcroft-Gault) 73.5 Glucose Level 202 mg/dL (70-99) Hemoglobin A1c 7.3 % (4.8-5.6) Calcium Level 8.9 mg/dL (8.5-10.1) Glucose (Fingerstick) 214 mg/dL (70-99) 236 mg/dL (70-99) 256 mg/dL (70-99) Test 10/08/20 21:11 10/09/20 05:55 10/09/20 07:24 Glucose (Fingerstick) 245 mg/dL (70-99) 227 mg/dL (70-99) White Blood Count 4.2 x10^3/uL (4.0-11.0) Red Blood Count 3.90 x10^6/uL (4.30-5.70) Hemoglobin 10.9 g/dL (13.0-17.5) Hematocrit 33.5 % (39.0-53.0) Mean Corpuscular Volume 86 fL (79-100) Mean Corpuscular Hemoglobin 28 pg (25-35) Mean Corpuscular Hemoglobin Concent 33 g/dL (31-37) Red Cell Distribution Width 15.7 % (11.5-14.5) Platelet Count 107 x10^3/uL (140-400) Sodium Level 145 mmol/L (136-145) Potassium Level 4.3 mmol/L (3.5-5.1) Chloride Level 108 mmol/L (98-107) Carbon Dioxide Level 33 mmol/L (21-32) Anion Gap 4 (6-14) Blood Urea Nitrogen 18 mg/dL (8-26) Creatinine 1.1 mg/dL (0.7-1.3) Estimated GFR (Cockcroft-Gault) 65.8 Glucose Level 235 mg/dL (70-99) Calcium Level 8.6 mg/dL (8.5-10.1) Laboratory Tests Test 10/08/20 11:53 10/08/20 16:59 10/08/20 21:11 10/09/20 05:55 Glucose (Fingerstick) 236 mg/dL (70-99) 256 mg/dL (70-99) 245 mg/dL (70-99) White Blood Count 4.2 x10^3/uL (4.0-11.0) Red Blood Count 3.90 x10^6/uL (4.30-5.70) Hemoglobin 10.9 g/dL (13.0-17.5) Hematocrit 33.5 % (39.0-53.0) Mean Corpuscular Volume 86 fL (79-100) Mean Corpuscular Hemoglobin 28 pg (25-35) Mean Corpuscular Hemoglobin Concent 33 g/dL (31-37) Red Cell Distribution Width 15.7 % (11.5-14.5) Platelet Count 107 x10^3/uL (140-400) Sodium Level 145 mmol/L (136-145) Potassium Level 4.3 mmol/L (3.5-5.1) Chloride Level 108 mmol/L (98-107) Carbon Dioxide Level 33 mmol/L (21-32) Anion Gap 4 (6-14) Blood Urea Nitrogen 18 mg/dL (8-26) Creatinine 1.1 mg/dL (0.7-1.3) Estimated GFR (Cockcroft-Gault) 65.8 Glucose Level 235 mg/dL (70-99) Calcium Level 8.6 mg/dL (8.5-10.1) Test 10/09/20 07:24 Glucose (Fingerstick) 227 mg/dL (70-99) Medications Current Medications Labetalol HCl (Normodyne Iv Push) 20 mg 1X ONCE IVP Last administered on 10/03/20at 00:02; Start 10/03/20 at 00:30; Stop 10/03/20 at 00:31; Status DC Labetalol HCl (Normodyne Iv Push) 20 mg STK-MED ONCE IVP ; Start 10/02/20 at 23:59; Stop 10/03/20 at 00:00; Status DC Nicardipine HCl 50 mg/Sodium Chloride 250 ml @ 25 mls/hr CONT PRN IV SEE I/O RECORD Last administered on 10/04/20at 23:34; Start 10/03/20 at 00:45 Phytonadione 10 mg/Dextrose 51 ml @ 102 mls/hr 1X ONCE IV Last administered on 10/03/20at 02:17; Start 10/03/20 at 02:00; Stop 10/03/20 at 02:30; Status DC Insulin Glargine (Lantus Syringe) 15 unit QHS SQ Last administered on 10/06/20at 20:57; Start 10/03/20 at 21:00; Stop 10/07/20 at 16:19; Status DC Insulin Human Lispro (HumaLOG) 5 units TIDWMEALS SQ Last administered on 10/08/20at 12:23; Start 10/03/20 at 09:00; Stop 10/08/20 at 14:48; Status DC Dextrose (Dextrose 50%-Water Syringe) 12.5 gm PRN Q15MIN PRN IV SEE COMMENTS; Start 10/03/20 at 08:15 Dextrose (Iv Dextrose 5%) 250 ml PRN Q15MIN PRN IV SEE COMMENTS; Start 10/03/20 at 08:15; Status Cancel Lorazepam (Ativan Inj) 0.5 mg PRN Q6HRS PRN IVP ANXIETY / AGITATION; Start 10/03/20 at 08:15 Lorazepam (Ativan) 1 mg PRN Q6HRS PRN PO ANXIETY / AGITATION Last administered on 10/08/20at 22:26; Start 10/03/20 at 08:15 Ondansetron HCl (Zofran) 4 mg PRN Q6HRS PRN IVP NAUSEA/VOMITING; Start 10/03/20 at 08:15 Al Hydroxide/Mg Hydroxide (Mylanta Plus Xs) 30 ml PRN Q3HRS PRN PO HEARTBURN / GAS -2nd choice; Start 10/03/20 at 08:15 Calcium Carbonate/ Glycine (Tums) 500 mg PRN Q3HRS PRN PO HEARTBURN / GAS; Start 10/03/20 at 08:15 Sodium Chloride (Normal Saline Flush) 3 ml QSHIFT PRN IV AFTER MEDS AND BLOOD DRAWS; Start 10/03/20 at 08:15 Morphine Sulfate (Morphine Sulfate) 2 mg PRN Q1HR PRN IV PAIN Last administered on 10/03/20at 15:41; Start 10/03/20 at 08:15 Magnesium Hydroxide (Milk Of Magnesia) 2,400 mg PRN Q12HR PRN PO CONSTIPATION; Start 10/03/20 at 08:15 Info (Review Meds) 1 ea PRN 1X PRN MC SEE COMMENTS; Start 10/03/20 at 08:15; Status UNV Acetaminophen (Tylenol Supp) 650 mg PRN Q6HRS PRN [place] FEVER > 100.5'F or 38'C; Start 10/03/20 at 08:15; Status UNV Nicardipine HCl 50 mg/Sodium Chloride 250 ml @ 25 mls/hr CONT PRN IV HYPERTENSION; Start 10/03/20 at 08:15; Status UNV Info (Review Meds) 1 ea PRN 1X PRN MC SEE COMMENTS; Start 10/03/20 at 08:15 Acetaminophen (Tylenol Supp) 650 mg PRN Q6HRS PRN [place] FEVER > 100.5'F or 38'C; Start 10/03/20 at 08:15 Nicardipine HCl 50 mg/Sodium Chloride 250 ml @ 25 mls/hr CONT PRN IV HYPERTENSION; Start 10/03/20 at 08:15; Status UNV Iohexol (Omnipaque 350 Mg/ml) 75 ml 1X ONCE IV Last administered on 10/03/20at 09:30; Start 10/03/20 at 09:30; Stop 10/03/20 at 09:31; Status DC Info (CONTRAST GIVEN -- Rx MONITORING) 1 each PRN DAILY PRN MC SEE COMMENTS; Start 10/03/20 at 09:30; Stop 10/05/20 at 09:29; Status DC Phytonadione (Vitamin K Ampule) 10 mg 1X ONCE SQ Last administered on 10/03/20at 15:42; Start 10/03/20 at 15:00; Stop 10/03/20 at 15:01; Status DC Iohexol (Omnipaque 350 Mg/ml) 100 ml STK-MED ONCE .ROUTE ; Start 10/03/20 at 14:59; Stop 10/03/20 at 14:59; Status DC Acetaminophen/ Hydrocodone Bitart (Lortab 5/325) 1 tab PRN Q6HRS PRN PO PAIN Last administered on 10/08/20at 22:25; Start 10/03/20 at 17:30 Amlodipine Besylate (Norvasc) 5 mg DAILY PO Last administered on 10/04/20at 08:27; Start 10/04/20 at 09:00; Stop 10/04/20 at 17:32; Status DC Metoprolol Tartrate (Lopressor) 25 mg BID PO Last administered on 10/05/20at 08:16; Start 10/04/20 at 09:00; Stop 10/05/20 at 15:53; Status DC Hydralazine HCl (Apresoline Inj) 10 mg PRN Q4HRS PRN IVP ELEVATED BP, SEE COMMENTS Last administered on 10/06/20at 22:22; Start 10/04/20 at 08:15 Lisinopril (Prinivil) 10 mg DAILY PO Last administered on 10/05/20at 08:15; Start 10/05/20 at 09:00; Stop 10/05/20 at 15:44; Status DC Lisinopril (Prinivil) 10 mg 1X ONCE PO Last administered on 10/04/20at 17:04; Start 10/04/20 at 17:00; Stop 10/04/20 at 17:01; Status DC Amlodipine Besylate (Norvasc) 5 mg 1X ONCE PO Last administered on 10/04/20at 17:04; Start 10/04/20 at 17:00; Stop 10/04/20 at 17:01; Status DC Amlodipine Besylate (Norvasc) 10 mg DAILY PO Last administered on 10/09/20 08:53; Start 10/05/20 at 09:00 Docusate Sodium (Colace) 100 mg PRN DAILY PRN PO HARD STOOLS Last administered on 10/08/20 09:33; Start 10/05/20 at 09:00 Finasteride (Proscar) 5 mg DAILY PO Last administered on 10/09/20 08:53; Start 10/05/20 at 15:30 Tamsulosin HCl (Flomax) 0.8 mg DAILY PO Last administered on 10/09/20 08:53; Start 10/05/20 at 15:30 Lisinopril (Prinivil) 20 mg DAILY PO Last administered on 10/09/20 08:53; Start 10/06/20 at 09:00 Simvastatin (Zocor) 40 mg HS PO Last administered on 10/08/20 22:26; Start 10/05/20 at 21:00 Pantoprazole Sodium (Protonix) 40 mg DAILYAC PO Last administered on 10/09/20 08:52; Start 10/06/20 at 07:30 Carvedilol (Coreg) 12.5 mg BIDWMEALS PO Last administered on 10/06/20at 08:43; Start 10/05/20 at 17:00; Stop 10/06/20 at 12:45; Status DC Aspirin (Aspirin Chewable) 81 mg DAILYWBKFT PO Last administered on 10/06/20at 08:42; Start 10/05/20 at 17:00; Stop 10/06/20 at 09:55; Status DC Metoprolol Tartrate (Lopressor) 12.5 mg BID PO Last administered on 10/09/20 08:53; Start 10/06/20 at 21:00 Insulin Glargine (Lantus Syringe) 20 unit QHS SQ Last administered on 10/07/20at 22:00; Start 10/07/20 at 21:00; Stop 10/08/20 at 14:48; Status DC Insulin Glargine (Lantus Syringe) 30 unit QHS SQ Last administered on 10/08/20at 22:35; Start 10/08/20 at 21:00 Insulin Human Lispro (HumaLOG) 10 units TIDWMEALS SQ Last administered on 10/09/20at 08:57; Start 10/08/20 at 17:00 Doxycycline Hyclate (Vibra-Tab) 100 mg BID PO Last administered on 10/09/20at 08:52; Start 10/08/20 at 15:00 Active Scripts Active Amlodipine Besylate 10 Mg Tablet 10 Mg PO DAILY Reported Meclizine Hcl 25 Mg Tablet 1 Tab PO TID PRN Finasteride 5 Mg Tablet 1 Tab PO DAILY Flomax (Tamsulosin Hcl) 0.4 Mg Cap.er.24h 2 Cap PO DAILY Celebrex (Celecoxib) 200 Mg Capsule 1 Cap PO DAILY Furosemide 80 Mg Tablet 2 Tab PO DAILY Klor-Con 10 (Potassium Chloride) 10 Meq Tablet.er 2 Tab PO DAILY 30 Days Omeprazole 20 Mg Tablet.dr 20 Mg PO DAILY Metformin Hcl 1,000 Mg Tablet 1,000 Mg PO BIDWMEALS Glimepiride 4 Mg Tablet 1 Tab PO DAILY Vitals/I & O Vital Sign - Last 24 Hours 10/08/20 10/08/20 10/08/20 10/08/20 09:32 09:32 09:32 10:34 Temp 97.7 97.7 Pulse 90 90 90 82 Resp 17 B/P (MAP) 147/85 147/85 147/85 141/71 (94) Pulse Ox 98 O2 Delivery Nasal Cannula O2 Flow Rate 4.0 10/08/20 10/08/20 10/08/20 10/08/20 15:00 19:58 20:00 22:25 Temp 97.2 98.1 97.2 98.1 Pulse 76 94 Resp 18 16 20 B/P (MAP) 121/68 (85) 151/73 (99) Pulse Ox 99 98 98 O2 Delivery Nasal Cannula Nasal Cannula Nasal Cannula Nasal Cannula O2 Flow Rate 4.0 4.0 4.0 4.0 10/08/20 10/08/20 10/08/20 10/09/20 22:25 22:47 22:55 02:55 Temp 98.1 98.2 98.1 98.2 Pulse 94 83 68 Resp 18 20 18 B/P (MAP) 151/73 199/97 (131) 145/79 (101) Pulse Ox 95 99 99 O2 Delivery Nasal Cannula Nasal Cannula Nasal Cannula O2 Flow Rate 4.0 4.0 4.0 10/09/20 10/09/20 10/09/20 10/09/20 07:00 08:53 08:53 08:53 Temp 97.6 97.6 Pulse 84 84 84 84 Resp 18 B/P (MAP) 149/77 (101) 149/77 149/77 149/77 Pulse Ox 99 O2 Delivery Nasal Cannula O2 Flow Rate 4.0 Intake and Output 10/08/20 10/08/20 10/09/20 15:00 23:00 07:00 Intake Total 940 ml 800 ml 0 ml Output Total 700 ml 200 ml Balance 240 ml 600 ml 0 ml Justicifation of Admission Dx: Justifications for Admission: Justification of Admission Dx: Yes GENE MEADOWS MD Oct 09, 2020 09:02
[2020-10-09 10:30] VITALS: BP 137/71
--- NOTE | 2020-10-09 12:26 | NUR ---
SS following up with discharge planning. SS reviewed pt chart and discussed with pt RN. Pt is currently requiring oxygen at four liters nasal canula. COVID19 negative. PT/OT recommended care home unit. Pt accepted at [facility], ; fax [phone]. Insurance authorization received. Discharge orders sent to [facility]. Pt will discharge today and go to [facility] between 1230 and 1300 via [facility]. Pt, pt's RN, and pt's spouse notified.
--- NOTE | 2020-10-09 13:32 | NUR ---
Discharge Note: RAUL ESPINAL [address] Discharge instructions and discharge home medications reviewed with Patient and a copy given. All questions have been answered and understanding verbalized. The following instructions and handouts were given: stroke prevention, DM, HTN, HLD, stroke booklet, new medications, and smoking cessation Patient discharged to [facility] via wheelchair and transportation in stable condition NIH of 7 at time of DC.
--- NOTE | 2020-10-09 20:43 | PDOC3 ---
[facility]-Discharge Summary Date of Admission: Date of Admission: Oct 03, 2020 Date of Discharge: Date of Discharge: Oct 09, 2020 Discharge Diagnosis: Discharge Diagnosis: Left thalamic hemorrhage, most likely related to the fact that he is on warfarin plus his hypertension. CTA negative for aneurysm. 2. Chronic afib: rate controlled. EF and WM nml 3. Chronic anticoagulation therapy: INR down to 1.4 after vit K 4. CAD: past stents. clinically stable 5. HTN: controlled 6. HLP 7. DM2: per PCP 8. Intermittent episodes of slow afib: 40s presently controlled at 60s 9. Pulmonary hypertension: compensated Consults: Consults: Neuro recs: Plan Hold warfarin for 1-3 months Resume aspirin in 2 weeks Rehabilitation modalities Blood pressure goal, less than 150/90 Favorable lipid profile, hold on statin Cardiology managing antihypertensives SNU rehab, was ready for transfer last week, insurance company approval is still pending Follow-up with me as needed Hospital Course: Hospital Course: 70-year-old male with past history of hypertension, atrial fibrillation on warfarin, who presents to the ED as a code stroke. Symptoms reportedly began approximate 40 minutes prior to arrival in ED with difficulty moving his right upper extremity and slurred speech. He denies any prior history of stroke. CT head on admission showed acute left thalamic hemorrhage with mild adjacent edema. He was initiated on nicardipine infusion. He was admitted to the ICU with neurology and neurosurgery consult. By day of discharge, pt was clinically stable and ready for discharge. Rest of hospital course was uneventful Disposition: Disposition/Orders: D/C to Another Facility Activity: Activity: Resume previous activity Diet: Diet: Cardiac Medications: Home Meds Active Scripts Amlodipine Besylate (AMLODIPINE BESYLATE) 10 Mg Tablet, 10 MG PO DAILY for HTN, #30 TAB 2 Refills Prov:ANN ORNELAS MD 10/06/20 Reported Medications Meclizine Hcl (MECLIZINE HCL) 25 Mg Tablet, 1 TAB PO TID PRN for Vertigo, #90 TAB 10/03/20 Finasteride (FINASTERIDE) 5 Mg Tablet, 1 TAB PO DAILY for BPH, #30 TAB 11 Refills 10/03/20 Tamsulosin Hcl (FLOMAX) 0.4 Mg Cap.er.24h, 2 CAP PO DAILY for BPH, #30 CAP 11 Refills 10/03/20 Celecoxib (CELEBREX) 200 Mg Capsule, 1 CAP PO DAILY for pain/arthritis, #30 CAP 2 Refills 10/03/20 Furosemide (FUROSEMIDE) 80 Mg Tablet, 2 TAB PO DAILY for Fluid overload, #30 TAB 5 Refills 10/03/20 Potassium Chloride (Klor-Con 10) 10 Meq Tablet.er, 2 TAB PO DAILY for Potassium supplementation for 30 Days, #60 TAB 0 Refills 10/03/20 Omeprazole (OMEPRAZOLE) 20 Mg Tablet.dr, 20 MG PO DAILY, TAB 07/25/17 Metformin Hcl (METFORMIN HCL) 1,000 Mg Tablet, 1000 MG PO BIDWMEALS, TAB 07/25/17 Glimepiride (GLIMEPIRIDE) 4 Mg Tablet, 1 TAB PO DAILY, #30 TAB 5 Refills 12/16/13 Discontinued Reported Medications Lisinopril (LISINOPRIL) 20 Mg Tablet, 20 MG PO DAILY for FOR HYPERTENSION, #30 TAB 0 Refills 12/06/13 Warfarin Sodium (WARFARIN SODIUM) 5 Mg Tablet, 6 MG PO DAILY, TAB 12/06/13 Simvastatin (SIMVASTATIN) 40 Mg Tablet, 40 MG PO HS for Hyperlipidemia, #30 TAB 0 Refills 12/06/13 Amlodipine Besylate (AMLODIPINE BESYLATE) 2.5 Mg Tablet, 2.5 MG PO DAILY, TAB 12/06/13 Metoprolol Tartrate (METOPROLOL TARTRATE) 50 Mg Tablet, 50 MG PO BID for FOR HYPERTENSION, #60 TAB 0 Refills 12/06/13 Scheduled Amlodipine Besylate (Amlodipine Besylate), 10 MG PO DAILY Celecoxib (Celebrex), 1 CAP PO DAILY, (Reported) Finasteride (Finasteride), 1 TAB PO DAILY, (Reported) Furosemide (Furosemide), 2 TAB PO DAILY, (Reported) Glimepiride (Glimepiride), 1 TAB PO DAILY, (Reported) Metformin Hcl (Metformin Hcl), 1,000 MG PO BIDWMEALS, (Reported) Omeprazole (Omeprazole), 20 MG PO DAILY, (Reported) Potassium Chloride (Klor-Con 10), 2 TAB PO DAILY, (Reported) Tamsulosin Hcl (Flomax), 2 CAP PO DAILY, (Reported) Scheduled PRN Meclizine Hcl (Meclizine Hcl), 1 TAB PO TID PRN for Vertigo, (Reported) Discontinued Medications Amlodipine Besylate (Amlodipine Besylate), 2.5 MG PO DAILY, (Reported) Lisinopril (Lisinopril), 20 MG PO DAILY, (Reported) Metoprolol Tartrate (Metoprolol Tartrate), 50 MG PO BID, (Reported) Simvastatin (Simvastatin), 40 MG PO HS, (Reported) Warfarin Sodium (Warfarin Sodium), 6 MG PO DAILY, (Reported) Total Time: Total Time: Total time spent was 35 minutes in preparing scripts, discharge planning with SW and RN, and preparing this discharge summary. Patient seen and examined on day of discharge. Justicifation of Admission Dx: Justifications for Admission: Justification of Admission Dx: Yes DANISH RICHTER MD Oct 09, 2020 20:43
[2020-10-09] MEDS ORDERED: LACTOBACILLUS RHAMNOSUS GG 1 CAPSULE. PO SCH (21:00)
== END 2020-10-09 13:30 | DRG 64 ==
LOC: ER 23:42 → 1 WEST ICU 10-03 00:35 → 2 SOUTH 10-05 11:10
PROVIDERS: ADMIT Internal Medicine; ATTEND Internal Medicine
DX: I61.8 Other nontraumatic intracerebral hemorrhage (principal); G93.6 Cerebral edema; I16.1 Hypertensive emergency; I48.20 Chronic atrial fibrillation, unspecified; G81.91 Hemiplegia, unspecified affecting right dominant side; D64.9 Anemia, unspecified; E11.51 Type 2 diabetes mellitus with diabetic peripheral angiopathy without gangrene; E78.00 Pure hypercholesterolemia, unspecified; E78.5 Hyperlipidemia, unspecified; I11.0 Hypertensive heart disease with heart failure; I25.10 Atherosclerotic heart disease of native coronary artery without angina pectoris; I27.20 Pulmonary hypertension, unspecified; I50.9 Heart failure, unspecified; N40.0 Benign prostatic hyperplasia without lower urinary tract symptoms; Z79.01 Long term (current) use of anticoagulants; Z82.49 Family history of ischemic heart disease and other diseases of the circulatory system; Z87.891 Personal history of nicotine dependence; Z90.49 Acquired absence of other specified parts of digestive tract; Z95.5 Presence of coronary angioplasty implant and graft; F41.9 Anxiety disorder, unspecified; G47.33 Obstructive sleep apnea (adult) (pediatric); G51.0 Bell's palsy; K21.9 Gastro-esophageal reflux disease without esophagitis; Z88.8 Allergy status to other drugs, medicaments and biological substances; I80.8 Phlebitis and thrombophlebitis of other sites; E11.65 Type 2 diabetes mellitus with hyperglycemia; Z79.4 Long term (current) use of insulin; Z20.822 Contact with and (suspected) exposure to COVID-19; Z79.899 Other long term (current) drug therapy; T45.515A Adverse effect of anticoagulants, initial encounter; Y92.89 Other specified places as the place of occurrence of the external cause; I08.1 Rheumatic disorders of both mitral and tricuspid valves
CPT/HCPCS: 36415; 70450; 70496; 70498; 70551; 80048; 80053; 80061; 81001; 82962; 83036; 83735; 83880; 84484; 85025; 85027; 85610; 85730; 93005; 93306; 96374; 99406; J0360; J1815; J2270; J3430; J3490; J7050; J7060; Q9967; U0003; U0005; 92526-GN; 92610-GN; 97110-GO; 97110-GP; 97116-GP; 97530-GO; 97530-GP; 97535-GO; 99291-25; G0378; J7030